=== PATIENT | male | born 1950 ===

== ENCOUNTER 2020-03-13 | Outpatient (REF) | payer MEDICARE, SELFPAY ==
--- NOTE | 2020-03-13 10:00 | CT_ITS ---
EXAMINATION: CT CHEST WITH CONTRAST CT ABDOMEN AND PELVIS WITH CONTRAST CLINICAL INFORMATION: Transverse colon cancer. COMPARISON: CT dated 12/05/2019. TECHNIQUE: Multidetector volumetric imaging was performed from the thoracic inlet through the pubic symphysis following administration of intravenous and oral contrast material. A total of 85 mL Omnipaque 300 was administered intravenously. Sagittal and coronal images were reformatted. This CT examination was performed using dose optimization techniques as appropriate, variously including the following: *Automated exposure control *Adjustment of mA and/or kV according to patient size (this includes techniques or standardized protocols for targeted exams where dose is matched to indication/reason for exam; i.e. extremities or head) *Use of iterative reconstruction technique DOSE: 590 mGy-cm. FINDINGS: -CHEST- LUNG: Multiple solid pulmonary nodules include the following (as measured on series 7, 697 images). 7 mm nodule in the superior segment of the right lower lobe (image 296) 8 mm nodule left upper lobe posteriorly, image 157 4 mm nodule in the left lung apex on image 100 13 mm nodule in the left lower lobe posteriorly on image 434. This is increased in size from 1.1 cm on the prior study by my measurement. 3 mm nodule in the left upper lobe posteriorly on image 147 Calcific granuloma is present in the left lower lobe. No pulmonary consolidation. Central airways are clear. No significant bronchiectasis. MEDIASTINUM: Heart is normal in size. Pulmonary vasculature is normal. Calcific atherosclerosis is present in the coronary arteries and thoracic aorta. No adenopathy. Thyroid gland is unremarkable. PERICARDIUM/PLEURA: No significant effusion. No pleural mass or thickening. CHEST WALL/AXILLA: Unremarkable. -ABDOMEN/PELVIS- LIVER, GALLBLADDER, BILIARY TREE: Again seen is a subcentimeter 3, unchanged from prior. A subtle 6 mm focus of hypoattenuation is also noted in the inferior margin of hepatic segment 4A on image 24 of series 3, unchanged. No new hepatic lesions are identified. Liver is normal in size and contour without biliary ductal dilatation. The gallbladder is unremarkable with no evidence of radiopaque gallstones, gallbladder wall thickening, or obvious pericholecystic inflammatory changes. PANCREAS: Normal; no mass or surrounding fluid. SPLEEN: Normal size. No focal lesion. ADRENAL GLANDS: Normal; no mass. KIDNEYS AND URETERS: The kidneys are normal in size, shape, and attenuation. No hydronephrosis, hydroureter, or calculi seen. No perinephric stranding. BLADDER: Unremarkable. GASTROINTESTINAL TRACT: There is a moderate large amount of stool in the colon, most notably in the rectum. The rectal stool ball measures up to 7 cm in diameter. There is mild colonic diverticulosis. No evidence of acute diverticulitis. Chain luis are present at the splenic flexure, consistent with partial colectomy. No findings of local recurrence are identified by CT. Specifically, no surrounding nodules or wall thickening are appreciated. No intraperitoneal free air or free fluid. Stomach, small bowel, and colon are normal in caliber. ABDOMINAL WALL: Small left inguinal hernia sac containing. VASCULATURE: Atherosclerotic calcifications are present in the abdominal aorta and iliac arteries. No aneurysmal dilatation. LYMPH NODES: No lymphadenopathy. PELVIC VISCERA: Uterus is surgically absent. No adnexal lesions. OSSEUS STRUCTURES: There is degenerative disc disease in the lower lumbar spine. Mild left convex lumbar curvature. No fracture or malalignment. [id number] osteophyte is present in the hips. IMPRESSION: 1. Multiple (5) solid pulmonary nodules which are most concerning for metastatic disease. The largest nodule measures 1.3 cm and is increased in size from 1.1 cm previously. 2. Two subcentimeter hypodensities within the liver which are too small to characterize, possibly corresponding to cysts. No new lesions are identified in the abdomen and pelvis. 3. Status post partial colectomy without evidence of local recurrence.
== END 2020-03-13 00:01 | disposition home or self-care (01) ==
LOC: HO.CT
PROVIDERS: Visit Provider Internal Medicine
DX: C18.4 Malignant neoplasm of transverse colon (principal)
CPT/HCPCS: 71260; 74177; 88341; 88342

== ENCOUNTER → 2020-03-18 09:00 | Outpatient (BNV) | payer MEDICARE, SELFPAY | PROVIDERS: PCP Internal Medicine; Visit Provider Internal Medicine | DX: C18.4 Malignant neoplasm of transverse colon (principal); C79.82 Secondary malignant neoplasm of genital organs | CPT/HCPCS: 99212; 99213; 99214; G2211 ==

== ENCOUNTER 2020-03-28 10:52 | Day surgery (SDC) | payer MEDICARE, SELFPAY ==
--- NOTE | 2020-03-28 | XR_ITS ---
EXAMINATION: XR CHEST CLINICAL INFORMATION: Status post left lung biopsy COMPARISON: March 13, 2020 TECHNIQUE: AP portable view of the chest was obtained. FINDINGS: No pneumothorax is evident. There is some left base atelectasis seen. Heart normal size. No evidence of pulmonary edema. No significant pleural effusion. XR/XR chest 1V IMPRESSION: No pneumothorax status post left lung biopsy.
[2020-03-28 11:27] VITALS: BP 148/66; PULSE 41; RESP 16; TEMP 36.8; O2SAT 99
[2020-03-28 11:31] VITALS: BMI 25.9
[2020-03-28 11:40] LABS: MANUAL DIFF FLAG NO
[2020-03-28 11:44] LABS: Basophils Percent Auto 0.8 % (0-2); Eosinophils Absolute Auto 0.3 X10*3/uL (0.0-0.4); Eosinophils Percent Auto 5.1 % (0-4); Hematocrit 38.2 % (42-52); Hemoglobin 12.3 g/dl (14.0-18.0); Imm Gran Abs Auto 0.01 X10*3/uL (0.00-0.03); Imm Gran Pct Auto 0.2 % (0.0-0.4); Lymphocytes Absolute Auto 1.7 X10*3/uL (1.2-4.9); Lymphocytes Percent Auto 33.9 % (20-40); Mean Corpuscular HGB Conc 32.2 g/dl (31.0-36.0); Mean Corpuscular Hemoglobin 28.7 pg (27.0-33.0); Mean Platelet Volume 10.3 fL (9.4-12.4); Monocytes Absolute Auto 0.5 X10*3/uL (0.1-1.2); Monocytes Percent Auto 9.6 % (2-11); Neutrophils Absolute Auto 2.6 X10*3/uL (2.0-8.3); Neutrophils Percent Auto 50.4 % (45-73); Platelet Count 185 X10*3/uL (160-400); Red Blood Count 4.29 X10*6/uL (4.60-5.80); Red Cell Distribution Width 13.2 % (11.0-16.0); White Blood Count 5.1 X10*3/uL (4.8-10.8)
[2020-03-28 11:58] LABS: Prothrombin Time 11.8 SEC (10.8-13.0)
[2020-03-28 12:01] LABS: Partial Thromboplastin Time 27.9 SEC (24.1-38.0)
[2020-03-28 12:14] LABS: Anion Gap 9 (12-20); Carbon Dioxide 28 mmol/L (22-29); Chloride 107 mmol/L (96-108); Potassium 4.8 mmol/l (3.3-5.1); Sodium 139 mmol/L (135-145)
--- NOTE | 2020-03-28 14:12 | CT_ITS ---
PROCEDURE: CT GUIDED BIOPSY, LUNG CLINICAL INFORMATION: History of colon cancer with lung nodules. COMPARISON: March 13, 2020 TECHNIQUE: CT fluoroscopic-guided left lung biopsy This CT examination was performed using dose optimization techniques as appropriate, variously including the following: *Automated exposure control *Adjustment of mA and/or kV according to patient size (this includes techniques or standardized protocols for targeted exams where dose is matched to indication/reason for exam; i.e. extremities or head) *Use of iterative reconstruction technique DLP: 216 mGy-cm 30 minutes of sedation. FINDINGS: Informed consent was obtained from the patient prior to the procedure. During this process, the procedure and potential alternatives were explained, along with the intended outcome and benefits. The risks of the procedure, as well as the risk of not doing the procedure, were discussed. The patient was given the opportunity to ask questions regarding the procedure and appeared competent to make medical decisions. A signed consent form which documents this discussion was placed in the medical record. With patient lying prone using sterile technique and CT fluoroscopic guidance a 19-gauge coaxial guiding needle was placed from a posterior approach into the 1.2 cm lesion within the left lower lobe. 2, 20-gauge core biopsy samples were obtained. Preliminary cytology result was of an adequate specimen. No immediate postprocedure pneumothorax was present. CT/CT biopsy lung LT IMPRESSION: Successful left lower lobe lung nodule core biopsy.
[2020-03-28] MEDS: Lidocaine HCl 1 % 20 ML VIAL 10 ML SUBCUT (15:09)
[2020-03-28 15:15] VITALS: BP 143/64; PULSE 42; RESP 14; TEMP 36.1; O2SAT 100
[2020-03-28 15:30] VITALS: BP 148/61; PULSE 41; RESP 16; O2SAT 99
[2020-03-28 15:49] VITALS: BP 135/63; PULSE 40; RESP 16; O2SAT 99
[2020-03-28 16:21] VITALS: BP 161/70; PULSE 50; RESP 20; O2SAT 100
[2020-03-28 16:39] VITALS: BP 140/69; PULSE 45; RESP 20; TEMP 36.2; O2SAT 100
[2020-04-12 17:07] LABS: KRAS Mutation Analysis NOT DETECTED
[2020-04-14 18:32] LABS: BRAF Mutation Analysis NOT DETECTED
[2020-04-18 19:01] LABS: NRAS Mutation NOT DETECTED
== END 2020-03-28 15:15 | disposition home or self-care (01) ==
PROVIDERS: Radiology Diagnostic Radiology; PCP Internal Medicine; Visit Provider Internal Medicine
DX: C78.02 Secondary malignant neoplasm of left lung (principal); Z85.038 Personal history of other malignant neoplasm of large intestine; Z90.49 Acquired absence of other specified parts of digestive tract; Z85.46 Personal history of malignant neoplasm of prostate; Z90.79 Acquired absence of other genital organ(s)
CPT/HCPCS: 32405; 36415; 71045; 77012; 80051; 81210; 81275; 81276; 81311; 85025; 85610; 85730; 88305; 88333; 88341; 88342; 99152; 99153; J2250; J3010

== ENCOUNTER 2020-04-15 09:01 | Outpatient (REF) | payer MEDICARE, SELFPAY ==
--- NOTE | 2020-04-15 | PE_ITS ---
EXAMINATION: Fluorine-18 FDG PET/CT Scan CLINICAL INDICATION: Initial treatment management. Malignant neoplasm of colon. PROCEDURE: 61 minutes following the intravenous administration of 16.3 mCi of fluorine 18 FDG, images from the base of the skull to the mid thighs were obtained using a combined PET/CT scanner with CT scan based attenuation correction. No oral contrast was administered. No intravenous contrast was administered. Transverse, coronal, sagittal, and volume reconstruction projections were obtained. The patient's blood glucose as determined by a finger stick, was 89 mg/dl immediately prior to injection. Total CT exam dose-length product 721.24 mGy-cm COMPARISON: No previous PET/CT scan is available for comparison. The diagnostic CT scan of the chest, abdomen, and pelvis, dated 03/13/2020, is available for comparison. FINDINGS: (Slice numbers described in this report are numbered superiorly to inferiorly with slice #1 in the head) NECK AND VISUALIZED HEAD: No foci of abnormal FDG activity are noted. The distribution of FDG activity is physiological. There is no cervical lymphadenopathy. THORAX: A left lower lobe pulmonary nodule measuring 1.2 x 1.1 cm in largest transverse dimension and shows moderately increased FDG activity, SUV Max 6.2, slice 116/311. No other foci of abnormal FDG activity are present in the chest. Several pulmonary nodules visualized on the diagnostic CT scan dated 03/13/2020 are visualized, including: A 0.7 cm nodule superior segment of the right lower lobe, slice 99/311; 0.9 cm nodule left upper lobe posteriorly, slice 79/311; 0.5 cm anterior left upper lobe nodule, slice 77/311; and seen well only in CT series #102, a 0.3 cm posterior subpleural left upper lobe nodule, slice 205/813. None of these show abnormal FDG activity, but other than a 0.9 cm nodule in the left upper lobe, all are too small to be characterized on the FDG PET images. All these nodules are unchanged from the recent diagnostic CT scan dated 03/13/2020. No definite additional nodules are visualized. There are no additional foci of abnormal FDG activity in the chest. There is no mediastinal, supraclavicular, or axillary lymphadenopathy. There is no pleural or pericardial fluid, or pneumothorax. ABDOMEN AND PELVIS: No foci of abnormal FDG activity are present in the abdomen or pelvis. A 0.6 cm hypodensity in liver Couinaud segment 4a is unchanged from the diagnostic CT scan dated 03/13/2020 and too small to be characterized on the FDG PET images. The liver is otherwise unremarkable. The gallbladder, spleen, kidneys, adrenal glands and pancreas are unremarkable. There is no retroperitoneal, mesenteric, pelvic or inguinal lymphadenopathy. There is mild FDG activity in the gastrointestinal tract without a suspicious focal component, likely physiological. There is diverticulosis without evidence of diverticulitis. There is a suture line in the splenic flexure of the large bowel with no associated abnormal FDG activity. The hollow viscera are otherwise unremarkable. A small fat-containing left inguinal hernia is present. The uterus is absent. The pelvic organs are otherwise unremarkable. MUSCULOSKELETAL: No foci of abnormal FDG activity are present in the abdomen or pelvis. There are mild degenerative changes in the spine but no suspicious sclerotic or lytic lesions are present. VASCULAR: History calcifications including coronary are noted. PET/PET CT fusion skull to thigh IMPRESSION: 1. A 1.2 x 1.1 cm left lower lobe pulmonary nodule is FDG avid, as described above and strongly suspicious for a malignant lesion. 2. Several additional subcentimeter pulmonary nodules are present, all too small to be characterized well on the FDG PET images. Continued monitoring these with diagnostic CT imaging is recommended. 3. A subcentimeter hypodensity in the liver is too small to be characterized on the FDG PET images. 4. No additional abnormalities suspicious for metastatic or other malignant lesions are noted.
== END 2020-04-15 09:02 | disposition home or self-care (01) ==
LOC: HO.PET 09:01
PROVIDERS: Visit Provider Internal Medicine
DX: Z13.89 Encounter for screening for other disorder (principal)

== ENCOUNTER 2020-05-30 13:52 | Inpatient (IN) | payer MEDICARE, SELFPAY ==
[2020-05-30 13:56] VITALS: BP 175/66; PULSE 50; RESP 18; TEMP 36.8; O2SAT 99; BMI 25.9
--- NOTE | 2020-05-30 14:15 | CT_ITS ---
EXAMINATION: CT ABDOMEN AND PELVIS WITH CONTRAST CLINICAL INFORMATION: Abdominal pain, nausea. COMPARISON: Multiple prior examinations including recent CT scan the abdomen and pelvis March 2020. CT scan of the chest performed same day. TECHNIQUE: Multidetector volumetric images were obtained from the superior aspect of the liver through the pubic symphysis following administration 85 mL of Omnipaque 350 intravenous contrast. Sagittal and coronal reformatted images were obtained on the technologist's workstation. Oral contrast: No This CT examination was performed using dose optimization techniques as appropriate, variously including the following: *Automated exposure control *Adjustment of mA and/or kV according to patient size (this includes techniques or standardized protocols for targeted exams where dose is matched to indication/reason for exam; i.e. extremities or head) *Use of iterative reconstruction technique DLP: 871 mGy-cm FINDINGS: LUNG BASES: See chest CT report. Persistent 11 mm nodule abutting the pleura in the left lower lobe, unchanged compared to March 2020. LIVER, GALLBLADDER, AND BILIARY TREE: Subtle area of ill-defined decreased attenuation in the anterior aspect of the right lobe of the liver as seen on axial images 35 through 37, series 15, unchanged. The gallbladder is unremarkable with no evidence of radiopaque gallstones, gallbladder wall thickening, or obvious pericholecystic inflammatory changes. PANCREAS: Unremarkable. SPLEEN: Unremarkable. ADRENAL GLANDS: Unremarkable. KIDNEYS AND URETERS: There is new hydronephrosis and hydroureter down to the level of the upper pelvis, where there appears to be a mass See axial images 47 through 83, series 15. Evaluation is slightly limited by the fact that oral contrast was not given for this exam. The remaining bowel loops are unremarkable, other than the postsurgical changes in the colon at the splenic flexure, as before. The ureter distal to this mass resumes a normal caliber. There are no stones. There is mild stranding in the perinephric fat on the right, likely related to the obstruction. BLADDER: Unremarkable. GASTROINTESTINAL TRACT: There is enlargement of the appendix extending into the aforementioned mass just posterior and cephalad to what appears to be enlarged appendix. There is stranding in the surrounding soft tissues adjacent to the enlarged appendix and mass. The mass is heterogeneous in density measuring approximately 4.6 cm transverse, 5.8 cm AP, and 4.5 cm craniocaudal. There is stranding in the surrounding fat. As above this is resulting in obstruction of the right collecting system. Postsurgical changes in the splenic flexure region of the large bowel unchanged. Bowel otherwise unremarkable. ABDOMINAL WALL: Small fat-containing left inguinal hernia. Intramuscular or paramuscular lipomatous tumor, likely lipoma, abutting the anterior aspect of the iliopsoas muscle at the level of the hip joint, unchanged compared to prior. This measures approximately 3.4 cm transverse. LYMPH NODES: Normal. VASCULAR: Moderate calcific atherosclerotic disease present. PELVIC VISCERA: Unremarkable. OSSEOUS STRUCTURES: Spondylosis of lumbosacral spine, unchanged. CT/CT abdomen pelvis w con IMPRESSION: Findings most compatible with appendicitis with an adjacent abscess in the right lower quadrant /right right pelvis new compared with recent CT March 2020, resulting obstruction of the right collecting system, also new compared to prior. This is unlikely to represent metastatic disease related to the patient's colon cancer Subtle low-attenuation in the anterior aspect of the right lobe of the liver unchanged compared to prior, of uncertain significance. No clearly defined mass. Left lung nodule unchanged compared to prior, consistent with metastatic disease. This has been biopsied. See CT of the chest for more complete report of the lung findings. Lipomatous mass along the iliopsoas muscle compatible with lipoma unchanged compared to prior
--- NOTE | 2020-05-30 14:17 | XR_ITS ---
EXAMINATION: XR CHEST CLINICAL INFORMATION: SOB. COMPARISON: Chest 03/27/2020 TECHNIQUE: Frontal view of the chest was obtained. FINDINGS: The lungs are well-expanded and clear of acute process. The heart size and pulmonary vascularity is normal. No gross bony abnormality seen XR/XR chest 1V IMPRESSION: Unremarkable chest exam.
--- NOTE | 2020-05-30 14:18 | ED_ITS ---
HPI - General Adult General Chief complaint: General Medical Stated complaint: covid symptoms Time Seen by Provider: 05/30/20 13:57 History of Present Illness HPI narrative: Patient is 70-year-old male presents today with having generalized malaise, nausea, diffuse abdominal plain, right flank pain, no coughing, positive malaise. Positive aches diffusely. No congestion. Feels tired. Patient has a history of prostate cancer. History of abdominal surgery in the past. No history of obstruction. No history of abscess. No history of perforation. No history of diverticulitis. Patient is currently on a chemo agent for his prostate cancer. MD complaint: Patient is a 70-year-old male Related Data Home Medications Medication Instructions Recorded Confirmed cholecalciferol (vitamin D3) 25 mcg PO DAILY 03/18/20 03/18/20 multivitamin 1 tab PO DAILY 03/18/20 03/18/20 omega-3 fatty acids [Fish Oil] 500 mg PO DAILY 03/18/20 03/18/20 saw palmetto-pumpkin seed oil cap PO 03/18/20 tadalafil [Cialis] 20 mg PO DAILY PRN 03/18/20 03/18/20 magnesium mg PO DAILY 04/18/20 Previous Rx's Medication Instructions Recorded bicalutamide [Casodex] 50 mg PO DAILY #30 tab 04/23/20 Allergies Allergy/AdvReac Type Severity Reaction Status Date / Time naproxen [From [facility]LEVE] Allergy Intermediate RASH Verified 04/18/20 11:03 Review of Systems Review of Systems: Constitutional: No Weight loss, No Fever, No Chills, No Night Sweats, No Fatigue, positive Malaise ENT/Mouth: No Hearing loss, No Ear Pain, No Nasal Congestion, No Sinus Pain, No Hoarseness, No sore throat, No Rhinorrhea, No Swallowing Difficulty Eyes: No Eye Pain, No Swelling, No Redness, No Foreign Body, No Discharge, No Vision Changes Cardiovascular: No Chest Pain, No SOB, No Dyspnea on Exertion, No Orthopnea, No Edema, No Palpitations Respiratory: No Cough, No Sputum, No Wheezing, No Smoke Exposure, No Dyspnea Gastrointestinal: Positive Nausea, No Vomiting, No Diarrhea, No Constipation, No abdominal Pain, No Hematochezia, No Melena Genitourinary: no irregular bleeding, No Dysuria, No Urinary Frequency, No Hematuria, No Urinary Incontinence, No Urgency, No Flank Pain, No Urinary Flow Changes, No Hesitancy Musculoskeletal: Positive joint pain, No Myalgias, No Joint Swelling Skin: No Skin Lesions, No rash Neuro: Positive Weakness, No Numbness, No Paresthesias, No Loss of Consciousness, No Dizziness, No Headache Psych: No Anxiety/Panic, No Depression, No SI/HI/AH/VH, No Social Issues, Heme/Lymph: No Bruising, No Bleeding,No Lymphadenopathy Endocrine: No Polyuria, No Polydipsia, No Temperature Intolerance [facility] Past Medical History Medical History Bowel cancer Colon polyps Headache Prostate CA Skin cancer of face Surgical History H/O arthroscopic knee surgery History of ankle surgery History of cataract surgery Hx of tonsillectomy Family History Family History Father Heart attack Sister Heart attack Sister Breast CA Ovarian ca Social History Social History Advance Directives: No Advance Directives Information Provided: Yes Physical Exam Vital Signs: Vital Signs: Last Vital Signs Temp 98.2 F 05/30/20 13:56 Pulse 50 05/30/20 13:56 Resp 18 05/30/20 13:56 BP 175/66 H 05/30/20 13:56 Pulse Ox 99 05/30/20 13:56 Body Mass Index 25.9 Appearance: Alert. Oriented X3. No acute distress. Eyes: Pupils equal, round and reactive to light. ENT: Pharynx normal. Neck: Normal inspection. Neck supple. No lymph nodes noted. No crepitus CVS: Normal heart rate and rhythm. Pulses normal. Normal S1 and S2 Respiratory: No respiratory distress. Breath sounds normal. No Wheezing. No rales Abdomen: Soft and nontender. No rigidity. No distention. good BS x4 Skin: Skin warm and dry. Normal skin color. Normal skin turgor. Extremities: No lower extremity edema. Neurovascular intact to all extremities. No Lacerations. No Rash Neuro: Oriented X 3. No motor deficit. No sensory deficit. Moving all extermities. No slurred speech Medical Decision Making MDM Narrative Medical decision making narrative: Question etiology as to patient's weakness generalized malaise. We will go ahead and get labs. CT scan of the chest to make sure patient does not have a pulmonary emboli as patient has a history of metastatic prostate cancer. CT scan of the abdomen for his abdominal pain. IV fluid hydration. Pain medication labs coronavirus test sent. Lab Data Result diagrams: 05/30/20 14:55 05/30/20 14:55 Labs: Lab Results 05/30/20 05/30/20 05/30/20 Range/Units 14:55 14:55 14:55 WBC 13.9 H (4.8-10.8) X10*3/uL RBC 4.04 L (4.60-5.80) X10*6/uL Hgb 11.7 L (14.0-18.0) g/dl Hct 34.7 L (42-52) % MCV 85.9 (80-98) fL MCH 29.0 (27.0-33.0) pg MCHC 33.7 (31.0-36.0) g/dl RDW 12.2 (11.0-16.0) % Plt Count 288 D (160-400) X10*3/uL MPV 9.8 (9.4-12.4) fL Immature Gran % (Auto) 0.5 H (0.0-0.4) % Neut % (Auto) 77.7 H (45-73) % Lymph % (Auto) 11.6 L (20-40) % [place] % (Auto) 9.3 (2-11) % Eos % (Auto) 0.7 (0-4) % Baso % (Auto) 0.2 (0-2) % Lymph # (Auto) 1.6 (1.2-4.9) X10*3/uL [place] # (Auto) 1.3 H (0.1-1.2) X10*3/uL Eos # (Auto) 0.1 (0.0-0.4) X10*3/uL Baso # (Auto) 0.0 (0.0-0.2) X10*3/uL Abs Immat Gran (auto) 0.07 H (0.00-0.03) X10*3/uL Absolute Neuts (auto) 10.8 H (2.0-8.3) X10*3/uL Absolute Nucleated RBC 0.000 (0.0-0.012) X10*3/uL Nucleated RBC % (auto) 0.0 (0.0-0.2) /100WBC Sodium 135 (135-145) mmol/L Potassium 4.1 (3.3-5.1) mmol/l Chloride 103 (96-108) mmol/L Carbon Dioxide 20 L (22-29) mmol/L Anion Gap 16 (12-20) BUN 21 H (9-16) mg/dL Creatinine 1.54 H (0.5-1.4) mg/dL Estim Creat Clear Calc 52.5 Estimated GFR 45 Random Glucose 97 (60-115) mg/dL Calcium 8.4 8.4 (8.4-10.2) mg/dL Phosphorus 3.3 (2.7-4.5) mg/dL Magnesium 2.0 (1.6-2.6) mg/dL Total Bilirubin 1.2 H (0.0-1.0) mg/dL Direct Bilirubin 0.7 H (0.0-0.5) mg/dL AST 22 (5-37) U/L ALT 35 (0-40) U/L Alkaline Phosphatase 151 H (39-117) U/L Total Protein 6.6 (6.5-8.0) g/dL Albumin 3.5 (3.5-5.0) g/dL Lipase 7 L (8-78) U/L Discharge Plan Discharge Prescriptions: No Action multivitamin Tablet 1 tab PO DAILY RF: 0 cholecalciferol (vitamin D3) 25 mcg (1,000 unit) Capsule 25 mcg PO DAILY RF: 0 tadalafil [Cialis] 20 mg Tablet 20 mg PO DAILY PRN (Reason: Headache) RF: 0 saw palmetto-pumpkin seed oil 160 mg Capsule PO RF: 0 Fish Oil 500 mg Capsule 500 mg PO DAILY RF: 0 magnesium 250 mg Tablet PO DAILY RF: 0 bicalutamide [Casodex] 50 mg Tablet 50 mg PO DAILY Qty: 30 RF: 1
[2020-05-30] MEDS: 0.9 % Sodium Chloride 1,000 ML 999 ML IV (15:11)
[2020-05-30] MEDS: ondansetron HCL 4 MG/2 ML VIAL IVPUSH (15:12)
[2020-05-30 15:14] LABS: Basophils Percent Auto 0.2 % (0-2); Eosinophils Absolute Auto 0.1 X10*3/uL (0.0-0.4); Eosinophils Percent Auto 0.7 % (0-4); Hematocrit 34.7 % (42-52); Hemoglobin 11.7 g/dl (14.0-18.0); Imm Gran Abs Auto 0.07 X10*3/uL (0.00-0.03); Imm Gran Pct Auto 0.5 % (0.0-0.4); Lymphocytes Absolute Auto 1.6 X10*3/uL (1.2-4.9); Lymphocytes Percent Auto 11.6 % (20-40); MANUAL DIFF FLAG NO; Mean Corpuscular HGB Conc 33.7 g/dl (31.0-36.0); Mean Corpuscular Volume 85.9 fL (80-98); Mean Platelet Volume 9.8 fL (9.4-12.4); Monocytes Absolute Auto 1.3 X10*3/uL (0.1-1.2); Monocytes Percent Auto 9.3 % (2-11); Neutrophils Absolute Auto 10.8 X10*3/uL (2.0-8.3); Neutrophils Percent Auto 77.7 % (45-73); Platelet Count 288 X10*3/uL (160-400); Red Blood Count 4.04 X10*6/uL (4.60-5.80); Red Cell Distribution Width 12.2 % (11.0-16.0); White Blood Count 13.9 X10*3/uL (4.8-10.8)
[2020-05-30] MEDS: HYDROmorphone HCl 0.5 MG/0.5 ML SYRINGE IVPUSH (15:19)
--- NOTE | 2020-05-30 15:39 | ECG_ITS ---
Test Reason : WEAKNESS Blood Pressure : / mmHG Vent. Rate : 064 BPM Atrial Rate : 064 BPM P-R Int : 160 ms QRS Dur : 084 ms QT Int : 422 ms P-R-T Axes : 052 027 028 degrees QTc Int : 435 ms Normal sinus rhythm Normal ECG When compared with ECG of 20-DEC-2019 15:16, No significant change was found Referred By: Areli Griffin Electronically Signed By:ORLY ASHFORD MD
[2020-05-30 15:46] LABS: Calcium 8.4 mg/dL (8.4-10.2); Phosphorus 3.3 mg/dL (2.7-4.5)
[2020-05-30 15:48] LABS: Alanine Aminotransferase 35 U/L (0-40); Albumin Level 3.5 g/dL (3.5-5.0); Alkaline Phosphatase 151 U/L (39-117); Anion Gap 16 (12-20); Aspartate Amino Transferase 22 U/L (5-37); Bilirubin Direct 0.7 mg/dL (0.0-0.5); Bilirubin Total 1.2 mg/dL (0.0-1.0); Blood Urea Nitrogen 21 mg/dL (9-16); Calcium 8.4 mg/dL (8.4-10.2); Carbon Dioxide 20 mmol/L (22-29); Chloride 103 mmol/L (96-108); Creatinine Clr Calc Pharmacy 52.5; Estimated Glomerular Filt Rate 45; Glucose Random 97 mg/dL (60-115); Lipase 7 U/L (8-78); Potassium 4.1 mmol/l (3.3-5.1); Sodium 135 mmol/L (135-145); Total Protein 6.6 g/dL (6.5-8.0)
--- NOTE | 2020-05-30 15:48 | CT_ITS ---
EXAMINATION: CT ANGIOGRAM OF THE CHEST WITH AND WITHOUT CONTRAST (CT PULMONARY ANGIOGRAM FOR PE) CLINICAL INFORMATION: Reason for Exam sob COMPARISON: CT chest dated 03/13/2020 TECHNIQUE: Prior to contrast administration, noncontrast localization images were obtained. Subsequently, multidetector volumetric imaging was performed from the thoracic inlet to below the diaphragms following the administration of 80 mL Omnipaque 350 intravenous contrast. No contrast reaction reported Sagittal, coronal, and MIP oblique sagittal reformatted images were obtained on the CT workstation, uploaded to PACS, and reviewed. This CT examination was performed using dose optimization techniques as appropriate, variously including the following: *Automated exposure control *Adjustment of mA and/or kV according to patient size (this includes techniques or standardized protocols for targeted exams where dose is matched to indication/reason for exam; i.e. extremities or head) *Use of iterative reconstruction technique Total exam dose-length product 1265 mGy-cm FINDINGS: QUALITY OF STUDY/CONTRAST BOLUS: Satisfactory. PULMONARY ARTERIES: No central or segmental pulmonary emboli. THORACIC AORTA: No aneurysm or dissection. LUNG: No evidence of acute pneumonitis or parenchymal consolidation. Again seen is a 1.1 cm nodule within left lower lobe, possibly slightly decreased from the prior CT chest from the measured 1.3 cm. Also slightly decreased is a nodule in the superior segment of the right lower lobe which now measures 5 mm, previously 6 mm. There are a few additional pulmonary nodules which appear stable (see solares images). PLEURA: No pleural effusion or pneumothorax. MEDIASTINUM: Normal heart size. Coronary calcifications. No pericardial effusion. No hilar or mediastinal lymphadenopathy. No evidence of septal bowing or right heart strain. No reflux of contrast into the hepatic veins to suggest elevated right heart pressures. CHEST WALL/AXILLA: No axillary or internal mammary lymphadenopathy. OSSEOUS STRUCTURES: No acute or suspicious osseous abnormality. UPPER ABDOMEN: Unremarkable. CT/CT angio chest PE protocol IMPRESSION: * No evidence of pulmonary embolism. * No aortic dissection or aneurysm. * Coronary calcifications. * There are a few pulmonary nodules as seen previously, the dominant nodule within left lower lobe biopsy proven represent metastatic prostate cancer. This nodule has decreased in size slightly from the prior examination now measuring 1.1 cm, previously 1.3 cm. Equivocal decrease in size of a nodule at the superior segment of the right lower lobe as well. Remaining pulmonary nodules are stable. VTE: negative
[2020-05-30 15:49] LABS: Influenza A PCR NEGATIVE (Negative); Influenza B PCR NEGATIVE (Negative); Resp Syncy Virus RNA Qual PCR NEGATIVE (Negative); SARS COV2 PCR INHOUSE NEGATIVE (Negative)
[2020-05-30] MEDS: iohexoL 350 MG/ML 100 ML INFUS..BTL IV (16:26)
[2020-05-30] MEDS: 0.9 % Sodium Chloride 500 ML IV (16:44)
[2020-05-30 16:57] LABS: Glucose Urine UA NEG (NEG); Leukocyte Esterase Urine NEG (NEG); Nitrite Urine NEG (NEG); PH 5.5 (5.0-8.0); Specific Gravity - Urine 1.025 (1.005-1.025); Urine Blood NEG (NEG); Urine Ketones 40 MG/DL (NEG); Urine Protein TRACE MG/DL (NEG-TRACE)
[2020-05-30 17:00] LABS: Color Urine YELLOW
[2020-05-30 17:01] LABS: Appearance Urine CLEAR
[2020-05-30 17:46] VITALS: BP 174/68; PULSE 64; RESP 15; O2SAT 98
[2020-05-30 18:14] VITALS: BP 161/65; PULSE 67; RESP 15; O2SAT 98
--- NOTE | 2020-05-30 18:19 | PC.NURSE ---
pt came in via private car from home for several days of abdominal pain and feeling generally unwell. He has been seen by MD and told he is admitted, pt states understanding and awaits bed assignment. He is alert, oriented, calm and cooperative. will continue to observe
--- NOTE | 2020-05-30 19:17 | PM.HPGS ---
History of Present Illness History of Present Illness Date of Service: 05/30/20 Chief complaint: covid symptoms Narrative: Jonas Tony is a 70 year old male with a history of a distal transverse colon cancer as well as metastatic prostate cancer with Mets to the lung, currently undergoing chemotherapy, now presenting with complaints of generalized malaise and lower abdominal pain. The symptoms began approximately 1 week ago and progressed throughout the week. He reports fever and chills, decreased appetite, and constipation. He subsequently presented to the emergency department and was noted to be tender in the lower abdomen on the right side. Laboratories revealed an elevated WBC. A CT of the abdomen and pelvis revealed an abscess collection in the right lower quadrant with adjacent appendix which was enlarged suggestive of a perforated appendicitis with an abscess. Patient is admitted for management of this perforated appendicitis/abscess. Review of Systems Constitutional: Constitutional: Reports chills, Reports fever(s), Denies headache(s) and Reports poor appetite ENT: Denies dizziness and Denies headache(s) Cardiovascular: Cardiovascular: Denies chest pain, Denies rapid heart rate, Denies palpitations and Denies slow heart rate Respiratory: Respiratory: Denies chest congestion, Denies cough, Denies pain on inspiration and Denies wheezing Gastrointestinal: Gastrointestinal: Reports abdominal pain, Reports bloating, Denies change in stool character, Reports constipation, Denies diarrhea, Denies nausea, Denies vomiting and Denies hematemesis Musculoskeletal: Musculoskeletal: Denies back pain, Reports arthralgias, Denies joint swelling and Denies numbness Integumentary/Breasts: Skin/Breast: Denies change in pigmentation, Denies erythema and Denies rash Neurologic: Denies confusion, Denies dizziness, Denies headache(s) and Denies numbness Psychiatric: Psychiatric: Denies anxiety, Denies confusion and Denies depression Endocrine: Endocrine: Denies palpitations Hematologic/Lymphatic: Hematologic/Lymphatic: Denies easy bleeding, Denies easy bruising and Denies lymphadenopathy Allergic/Immunologic: Allergic/Immunologic: Denies wheezing PMFSH Past Medical History Medical History Bowel cancer Colon polyps Headache Prostate CA Skin cancer of face Family History Family History Father Heart attack Sister Heart attack Sister Breast CA Ovarian ca Surgical History Surgical History H/O arthroscopic knee surgery History of ankle surgery History of cataract surgery Hx of tonsillectomy Social History Social History Alcohol intake: never Smoking Status: Former smoker Smoked in Last 30 Days: No Use of substances other than those prescribed or required for medical reasons: No Advance Directives: No Advance Directives Information Provided: Yes Meds Allergies Allergy/AdvReac Type Severity Reaction Status Date / Time naproxen [From ALEVE] Allergy Intermediate RASH Verified 04/18/20 11:03 Home Medications Medication Instructions Recorded Confirmed Type cholecalciferol (vitamin D3) 25 mcg PO DAILY 03/18/20 03/18/20 History multivitamin 1 tab PO DAILY 03/18/20 03/18/20 History omega-3 fatty acids [Fish Oil] 500 mg PO DAILY 03/18/20 03/18/20 History saw palmetto-pumpkin seed oil cap PO 03/18/20 History tadalafil [Cialis] 20 mg PO DAILY PRN 03/18/20 03/18/20 History magnesium mg PO DAILY 04/18/20 History Physical Exam Vital Signs: Vital Signs: Last Vital Signs Temp 98.2 F 05/30/20 13:56 Pulse 67 05/30/20 18:14 Resp 15 05/30/20 18:14 BP 161/65 H 05/30/20 18:14 Pulse Ox 98 05/30/20 18:14 Body Mass Index 25.9 Const: General: cooperative, comfortable and well developed; No confusion Nutritional Appearance: well nourished Orientation/consciousness: patient oriented x3 and No confusion Eyes: Sclerae: sclerae normal EOM: EOMs intact bilaterally Neck: Neck: Yes normal visual inspection Resp: Effort & Inspection: normal respiratory effort, no cough and no respiratory distress Cardio: Jugular venous distension: no JVD Rate: regular rate Rhythm: regular rhythm GI: Inspection: Yes normal to inspection Palpation (GI): Soft to palpation, Tenderness to palpation present (GI), no guarding and not rigid Percussion: Yes normal to percussion Auscultation: normal bowel sounds Skin: General skin exam: dry skin Rashes: no rashes Neuro: General: patient oriented x3, no focal motor deficits and No confusion Extrem: General: Yes full ROM and Yes no clubbing, cyanosis or edema Results Results Labs: Short CBC 05/30/20 Range/Units 14:55 WBC 13.9 H (4.8-10.8) X10*3/uL Hgb 11.7 L (14.0-18.0) g/dl Hct 34.7 L (42-52) % Plt Count 288 D (160-400) X10*3/uL BMP 05/30/20 05/30/20 14:55 14:55 Sodium 135 Potassium 4.1 Chloride 103 Carbon Dioxide 20 L BUN 21 H Creatinine 1.54 H Calcium 8.4 8.4 Liver Function 05/30/20 Range/Units 14:55 Total Bilirubin 1.2 H (0.0-1.0) mg/dL Direct Bilirubin 0.7 H (0.0-0.5) mg/dL AST 22 (5-37) U/L ALT 35 (0-40) U/L Alkaline Phosphatase 151 H (39-117) U/L Albumin 3.5 (3.5-5.0) g/dL Urine 05/30/20 Range/Units 16:46 Urine Color YELLOW Urine Appearance CLEAR Urine pH 5.5 (5.0-8.0) Ur Specific [place] 1.025 (1.005-1.025) Urine Protein TRACE (NEG-TRACE) MG/DL Urine Glucose (UA) NEG (NEG) MG/DL EXAMINATION: CT ABDOMEN AND PELVIS WITH CONTRAST CLINICAL INFORMATION: Abdominal pain, nausea. COMPARISON: Multiple prior examinations including recent CT scan the abdomen and pelvis March 2020. CT scan of the chest performed same day. TECHNIQUE: Multidetector volumetric images were obtained from the superior aspect of the liver through the pubic symphysis following administration 85 mL of Omnipaque 350 intravenous contrast. Sagittal and coronal reformatted images were obtained on the technologist's workstation. Oral contrast: No This CT examination was performed using dose optimization techniques as appropriate, variously including the following: *Automated exposure control *Adjustment of mA and/or kV according to patient size (this includes techniques or standardized protocols for targeted exams where dose is matched to indication/reason for exam; i.e. extremities or head) *Use of iterative reconstruction technique DLP: 871 mGy-cm FINDINGS: LUNG BASES: See chest CT report. Persistent 11 mm nodule abutting the pleura in the left lower lobe, unchanged compared to March 2020. LIVER, GALLBLADDER, AND BILIARY TREE: Subtle area of ill-defined decreased attenuation in the anterior aspect of the right lobe of the liver as seen on axial images 35 through 37, series 15, unchanged. The gallbladder is unremarkable with no evidence of radiopaque gallstones, gallbladder wall thickening, or obvious pericholecystic inflammatory changes. PANCREAS: Unremarkable. SPLEEN: Unremarkable. ADRENAL GLANDS: Unremarkable. KIDNEYS AND URETERS: There is new hydronephrosis and hydroureter down to the level of the upper pelvis, where there appears to be a mass See axial images 47 through 83, series 15. Evaluation is slightly limited by the fact that oral contrast was not given for this exam. The remaining bowel loops are unremarkable, other than the postsurgical changes in the colon at the splenic flexure, as before. The ureter distal to this mass resumes a normal caliber. There are no stones. There is mild stranding in the perinephric fat on the right, likely related to the obstruction. BLADDER: Unremarkable. GASTROINTESTINAL TRACT: There is enlargement of the appendix extending into the aforementioned mass just posterior and cephalad to what appears to be enlarged appendix. There is stranding in the surrounding soft tissues adjacent to the enlarged appendix and mass. The mass is heterogeneous in density measuring approximately 4.6 cm transverse, 5.8 cm AP, and 4.5 cm craniocaudal. There is stranding in the surrounding fat. As above this is resulting in obstruction of the right collecting system. Postsurgical changes in the splenic flexure region of the large bowel unchanged. Bowel otherwise unremarkable. ABDOMINAL WALL: Small fat-containing left inguinal hernia. Intramuscular or paramuscular lipomatous tumor, likely lipoma, abutting the anterior aspect of the iliopsoas muscle at the level of the hip joint, unchanged compared to prior. This measures approximately 3.4 cm transverse. LYMPH NODES: Normal. VASCULAR: Moderate calcific atherosclerotic disease present. PELVIC VISCERA: Unremarkable. OSSEOUS STRUCTURES: Spondylosis of lumbosacral spine, unchanged. CT/CT abdomen pelvis w con IMPRESSION: Findings most compatible with appendicitis with an adjacent abscess in the right lower quadrant /right right pelvis new compared with recent CT March 2020, resulting obstruction of the right collecting system, also new compared to prior. This is unlikely to represent metastatic disease related to the patient's colon cancer Subtle low-attenuation in the anterior aspect of the right lobe of the liver unchanged compared to prior, of uncertain significance. No clearly defined mass. Left lung nodule unchanged compared to prior, consistent with metastatic disease. This has been biopsied. See CT of the chest for more complete report of the lung findings. Lipomatous mass along the iliopsoas muscle compatible with lipoma unchanged compared to prior Dictated By:JEANIE MARIE MD Signed By:<Electronically signed by JEANIE MARIE MD in OV>05/30/20 1186 Assessment and Plan (1) Acute appendicitis with appendiceal abscess: Status: Acute 70-year-old male presenting with a 1 week history of abdominal pain, malaise, weakness, fever, chills presented to the emergency department this evening due to the abdominal pain. On examination the patient is tender in the right lower quadrant over McBurney's point. Laboratories revealed an elevated WBC and CT of the abdomen indicates a right lower quadrant appendiceal abscess. Ideally the abscess should be drained with Interventional Radiology. If this is not possible abscess drainage/appendectomy will be required although this would be difficult due to the prolonged nature of the appendicitis. I reviewed the CT images with the patient and discuss the treatment plan. He will be placed on IV antibiotics and IV fluids and kept NPO. Patient understands and agrees with the plan. (2) Metastatic malignant neoplasm to prostate: Status: Acute Will hold the Casodex for now pending management of appendiceal abscess.
[2020-05-30 19:58] VITALS: RESP 18
[2020-05-30] MEDS: Acetaminophen 325 MG TABLET 650 MG PO (19:58)
[2020-05-30] MEDS: Morphine Sulfate 4 MG/ML CARTRIDGE IVPUSH (19:58)
[2020-05-30] MEDS: Piperacillin Sodium/Tazobactam 3.375 GM in 0.9 % Sodium Chloride 50 ML IV (19:58)
[2020-05-30] MEDS: Dextrose 5 % and Lactated Ring 1,000 ML 125 ML IVCONT (20:00)
[2020-05-30 20:02] VITALS: BP 163/68; PULSE 67; RESP 16; TEMP 37.7; O2SAT 99
--- NOTE | 2020-05-30 20:02 | PC.NURSE ---
pt c/o ongoing pain. medicated with prns available awaiting room assignment
[2020-05-30 21:20] VITALS: BP 154/66; PULSE 67; RESP 18; TEMP 37.1; O2SAT 94
[2020-05-31] VITALS (13 sets, daily range): BP systolic 143–173; BP diastolic 65–76; PULSE 55–71; RESP 16–20; TEMP 36.6–37.8; O2SAT 93–98
[2020-05-31] MEDS: Morphine Sulfate 4 MG/ML CARTRIDGE IVPUSH ×2 (00:50→04:41)
[2020-05-31] MEDS: Piperacillin Sodium/Tazobactam 3.375 GM in 0.9 % Sodium Chloride 50 ML IV ×4 (01:50→19:22)
[2020-05-31] MEDS: Acetaminophen 325 MG TABLET 650 MG PO (03:30)
--- NOTE | 2020-05-31 03:46 | PC.NURSE ---
P-TEMP-100.1 I-MEDICATED WITH 2 TYLENOL PO E-WILL CONTINUE TO MONITOR
[2020-05-31] MEDS: Dextrose 5 % and Lactated Ring 1,000 ML 125 ML IVCONT ×2 (04:46→19:09)
[2020-05-31 07:32] LABS: MANUAL DIFF FLAG NO
[2020-05-31 07:35] LABS: Basophils Percent Auto 0.2 % (0-2); Eosinophils Absolute Auto 0.1 X10*3/uL (0.0-0.4); Eosinophils Percent Auto 0.6 % (0-4); Hematocrit 31.2 % (42-52); Hemoglobin 10.2 g/dl (14.0-18.0); Imm Gran Abs Auto 0.11 X10*3/uL (0.00-0.03); Imm Gran Pct Auto 0.8 % (0.0-0.4); Lymphocytes Absolute Auto 1.2 X10*3/uL (1.2-4.9); Lymphocytes Percent Auto 8.2 % (20-40); Mean Corpuscular HGB Conc 32.7 g/dl (31.0-36.0); Mean Corpuscular Hemoglobin 28.6 pg (27.0-33.0); Mean Corpuscular Volume 87.4 fL (80-98); Monocytes Absolute Auto 1.4 X10*3/uL (0.1-1.2); Monocytes Percent Auto 9.6 % (2-11); Neutrophils Absolute Auto 11.4 X10*3/uL (2.0-8.3); Neutrophils Percent Auto 80.6 % (45-73); Platelet Count 261 X10*3/uL (160-400); Red Blood Count 3.57 X10*6/uL (4.60-5.80); Red Cell Distribution Width 12.4 % (11.0-16.0); White Blood Count 14.1 X10*3/uL (4.8-10.8)
[2020-05-31 07:58] LABS: Anion Gap 12 (12-20); Blood Urea Nitrogen 19 mg/dL (9-16); Calcium 7.8 mg/dL (8.4-10.2); Carbon Dioxide 22 mmol/L (22-29); Chloride 107 mmol/L (96-108); Estimated Glomerular Filt Rate 36; Glucose Random 132 mg/dL (60-115); Potassium 4.2 mmol/l (3.3-5.1); Sodium 137 mmol/L (135-145)
[2020-05-31] MEDS: 0.9 % Sodium Chloride Flush 3 ML SYRINGE IVFLUSH ×2 (08:05→14:58)
--- NOTE | 2020-05-31 08:09 | PM.PNGS ---
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 Physical Exam Vital Signs: Vital Signs: Last Vital Signs Temp 97.9 F 05/31/20 07:06 Pulse 55 05/31/20 07:06 Resp 20 05/31/20 07:06 BP 150/65 H 05/31/20 07:06 Pulse Ox 96 05/31/20 07:06 Body Mass Index 25.9 Const: General: cooperative, no acute distress and tired appearing Nutritional Appearance: average body habitus Orientation/consciousness: patient oriented x3 Resp: Effort & Inspection: normal respiratory effort, no audible wheezes and not tachypneic GI: Other: Soft, tender in the right lower quadrant, no rebound or guarding Skin: Other: Warm and dry, no rash Neuro: General: patient oriented x3 Extrem: General: Yes full ROM and No edema Progress Note: A&P Assessment and plan (1) Acute appendicitis with appendiceal abscess: Status: Acute Assessment and Plan: Discussed the CT findings with Dr. Gamboa from Radiology. He does not feel he can safely drain the abscess percutaneously. I discussed this with the patient and recommended a laparoscopic or possible open appendectomy with drainage of the intra-abdominal abscess. After discussion of the procedure, risks, and alternatives, he gives his consent for the surgery. He will be added onto the OR schedule for today. Will continue the IV antibiotics. Fall Risk Details Current Medications: Current Medications Generic Name Dose Route Start Last Admin Trade Name Freq PRN Reason Stop Dose Admin Acetaminophen 650 mg 05/30/20 19:43 05/31/20 03:30 Acetaminophen 325 Mg Tablet PO 650 mg Q6H PRN Administration Pain, Mild (Pain Scale 1-3) Dextrose/Lactated Ringer's 1,000 mls @ 125 mls/hr 05/30/20 19:43 05/31/20 08:07 D5lr IVCONT 0 mls/hr .Q8H SAUNDRA Infusion Piperacillin Sod/Tazobactam 50 mls @ 100 mls/hr 05/30/20 19:43 05/31/20 08:02 Sod 3.375 gm/ Sodium Chloride IV 100 mls/hr Q6H SAUNDRA Administration Morphine Sulfate 4 mg 05/30/20 19:42 05/31/20 04:41 Morphine Sulfate 4 Mg/Ml Cartridge IVPUSH 4 mg Q4H PRN Administration Pain, Severe (Pain Scale 7-10) Ondansetron HCl 4 mg 05/31/20 05:58 Ondansetron Hcl 4 Mg/2 Ml Vial IVPUSH Q8H PRN Nausea Pharmacy Consult 1 each 05/30/20 18:03 Consult Rx Perform Med Rec MISCELLANE ONCE PRN Consult order Sodium Chloride 3 ml 05/31/20 00:00 05/31/20 08:05 0.9 % Sodium Chloride Flush 3 Ml Syringe IVFLUSH 3 ml QSHIFT SAUNDRA Administration Zolpidem Tartrate 5 mg 05/30/20 19:43 Zolpidem Tartrate 5 Mg Tablet PO BEDTIME PRN Insomnia Time Spent With Patient Time: Total time spent is greater than 50% in coordination of care (as documented) at patient's floor/unit and/or counseling patient: Time with patient: 15 - 24 minutes
--- NOTE | 2020-05-31 09:10 | P.CONAN_ITS ---
HPI - Anesthesia Eval Consult details Narrative: Prostate cancer - mets to lungs (asymptomatic) [facility] Past Medical History Medical History Bowel cancer Colon polyps Headache Prostate CA Skin cancer of face Family History Family History Father Heart attack Sister Heart attack Sister Breast CA Ovarian ca Surgical History Surgical History H/O arthroscopic knee surgery History of ankle surgery History of cataract surgery Hx of tonsillectomy Social History Social History Household Members: Spouse Housing: House Alcohol intake: never Smoking Status: Former smoker Smoked in Last 30 Days: No Use of substances other than those prescribed or required for medical reasons: No Have you been hit, kicked, punched, or otherwise hurt by someone within the past year? If so, by whom?: No Do you feel safe in your current relationship?: Yes Is there a partner from a previous relationship who is making you feel unsafe now?: No Are you made to feel afraid or neglected: No Advance Directives: No Advance Directives Information Provided: Yes Do you have thoughts of harming others: None Do you have a plan to hurt others: No Plan Recently lost weight without trying: No service: No Current occupational status: retired Meds Allergies Allergy/AdvReac Type Severity Reaction Status Date / Time naproxen [From ALEVE] Allergy Intermediate RASH Verified 04/18/20 11:03 Home Medications Medication Instructions Recorded Confirmed Type cholecalciferol (vitamin D3) 25 mcg PO DAILY 03/18/20 03/18/20 History multivitamin 1 tab PO DAILY 03/18/20 03/18/20 History omega-3 fatty acids [Fish Oil] 500 mg PO DAILY 03/18/20 03/18/20 History saw palmetto-pumpkin seed oil cap PO 03/18/20 History tadalafil [Cialis] 20 mg PO DAILY PRN 03/18/20 03/18/20 History magnesium mg PO DAILY 04/18/20 History Exam Exam Date and Time: May 31, 2020 0910 Height,Weight and Vital Signs: Height 6 ft 3 in Weight 93.894 kg Last Vital Signs Temp 97.9 F 05/31/20 07:06 Pulse 55 05/31/20 07:06 Resp 20 05/31/20 07:06 BP 150/65 H 05/31/20 07:06 Pulse Ox 96 05/31/20 07:06 Pertinent Lab Results Pertinent Lab Results: Laboratory Tests 05/30/20 05/30/20 05/30/20 14:55 14:55 14:55 WBC 13.9 H RBC 4.04 L Hgb 11.7 L Hct 34.7 L MCV 85.9 MCH 29.0 MCHC 33.7 RDW 12.2 Plt Count 288 D MPV 9.8 Immature Gran % (Auto) 0.5 H Neut % (Auto) 77.7 H Lymph % (Auto) 11.6 L [place] % (Auto) 9.3 Eos % (Auto) 0.7 Baso % (Auto) 0.2 Lymph # (Auto) 1.6 [place] # (Auto) 1.3 H Eos # (Auto) 0.1 Baso # (Auto) 0.0 Abs Immat Gran (auto) 0.07 H Absolute Neuts (auto) 10.8 H Absolute Nucleated RBC 0.000 Nucleated RBC % (auto) 0.0 Sodium 135 Potassium 4.1 Chloride 103 Carbon Dioxide 20 L Anion Gap 16 BUN 21 H Creatinine 1.54 H Estim Creat Clear Calc 52.5 Estimated GFR 45 Random Glucose 97 Calcium 8.4 8.4 Phosphorus 3.3 Magnesium 2.0 Total Bilirubin 1.2 H Direct Bilirubin 0.7 H AST 22 ALT 35 Alkaline Phosphatase 151 H Total Protein 6.6 Albumin 3.5 Lipase 7 L Urine Color Urine Appearance Urine pH Ur Specific [place] Urine Protein Urine Glucose (UA) Urine Ketones Urine Blood Urine Nitrite Ur Leukocyte Esterase Coronavirus (PCR) Influenza Type A (PCR) Influenza Type B (PCR) RSV RNA Qual (PCR) 05/30/20 05/30/20 05/31/20 14:55 16:46 06:54 WBC 14.1 H RBC 3.57 L Hgb 10.2 L Hct 31.2 L MCV 87.4 MCH 28.6 MCHC 32.7 RDW 12.4 Plt Count 261 MPV 10.0 Immature Gran % (Auto) 0.8 H Neut % (Auto) 80.6 H Lymph % (Auto) 8.2 L [place] % (Auto) 9.6 Eos % (Auto) 0.6 Baso % (Auto) 0.2 Lymph # (Auto) 1.2 [place] # (Auto) 1.4 H Eos # (Auto) 0.1 Baso # (Auto) 0.0 Abs Immat Gran (auto) 0.11 H Absolute Neuts (auto) 11.4 H Absolute Nucleated RBC 0.000 Nucleated RBC % (auto) 0.0 Sodium Potassium Chloride Carbon Dioxide Anion Gap BUN Creatinine Estim Creat Clear Calc Estimated GFR Random Glucose Calcium Phosphorus Magnesium Total Bilirubin Direct Bilirubin AST ALT Alkaline Phosphatase Total Protein Albumin Lipase Urine Color YELLOW Urine Appearance CLEAR Urine pH 5.5 Ur Specific [place] 1.025 Urine Protein TRACE Urine Glucose (UA) NEG Urine Ketones 40 Urine Blood NEG Urine Nitrite NEG Ur Leukocyte Esterase NEG Coronavirus (PCR) NEGATIVE Influenza Type A (PCR) NEGATIVE Influenza Type B (PCR) NEGATIVE RSV RNA Qual (PCR) NEGATIVE 05/31/20 06:54 WBC RBC Hgb Hct MCV MCH MCHC RDW Plt Count MPV Immature Gran % (Auto) Neut % (Auto) Lymph % (Auto) [place] % (Auto) Eos % (Auto) Baso % (Auto) Lymph # (Auto) [place] # (Auto) Eos # (Auto) Baso # (Auto) Abs Immat Gran (auto) Absolute Neuts (auto) Absolute Nucleated RBC Nucleated RBC % (auto) Sodium 137 Potassium 4.2 Chloride 107 Carbon Dioxide 22 Anion Gap 12 BUN 19 H Creatinine 1.84 H Estim Creat Clear Calc 44.0 Estimated GFR 36 Random Glucose 132 H D Calcium 7.8 L D Phosphorus Magnesium Total Bilirubin Direct Bilirubin AST ALT Alkaline Phosphatase Total Protein Albumin Lipase Urine Color Urine Appearance Urine pH Ur Specific [place] Urine Protein Urine Glucose (UA) Urine Ketones Urine Blood Urine Nitrite Ur Leukocyte Esterase Coronavirus (PCR) Influenza Type A (PCR) Influenza Type B (PCR) RSV RNA Qual (PCR) Airway Mallampati Class: II TM Dist: >3cm Neck ROM: Full Loose/Missing/Broken Teeth: No Heart: RRR Lungs: CTA Assessment and Plan Assessment Anesthesia Assessment: Anesthesia Plan Discussed and Chart Reviewed Final Anesthetic Review NPO: Yes ASA Class: II and Emergency Final Preanesthetic Review: No Changes in Pt Med Stat, Meds/Allgs Chart Reviewed, Consent Obtained/Reviewed and Anes Risks/Benef Reviewed Patient Risk: Low Procedure Risk: Intermediate Anesthetic Plan Anesthetic Plan: GA Disposition: Standard PACU
--- NOTE | 2020-05-31 09:12 | MHC.CM.PN ---
PATIENT IS INDEPENDENT WITH HIS ADLS. NO DME,. [facility], OR [facility] IN THE HOME. HCP/POA IS GABRIEL, AND A COPY IS AT HOME. COPY REQUESTED FOR MEDICAL CHART. PATIENT IS ACTIVE WITH [facility]. PLAN IS FOR SURGERY TODAY. CASE MANAGEMENT FOLLOWING FOR ANY DISCHARGE NEEDS. IMM 05/31 IN CHART
--- NOTE | 2020-05-31 09:14 | MHC.SHP ---
Pre-Procedural Eval Section A The patient is an INPATIENT: Yes The History & Physical has been completed within 30 days and I have reviewed it.: Yes Section B Chief Complaint: Perforated appendicitis with abscess Allergies: Allergies Allergy/AdvReac Type Severity Reaction Status Date / Time naproxen [From ALEVE] Allergy Intermediate RASH Verified 04/18/20 11:03 Plan Diagnosis/Plan: Unchanged I have reviewed the history and physical and performed a pertinent physical examination on my patient. No changes have occurred unless specified.
--- NOTE | 2020-05-31 11:19 | PM.OP ---
Brief Operative Note Date of Service: 05/31/20 Pre-op diagnosis: Acute appendicitis with abscess Post-op diagnosis: same Procedure: Exploratory laparoscopy converted to open mini-laparotomy, drainage of appendiceal abscess Implants: None Surgeon: Rony Joyner MD Anesthesia: GETA Estimated blood loss (mL): 20 Pathology: other (Abdominal abscess culture) Condition: stable Disposition: PACU
--- NOTE | 2020-05-31 11:21 | W.PM.OPN ---
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 Patient has been having lower abdominal symptoms for several weeks which seemed to be worsening in severity. This was initially attributed to the chemotherapy is receding for the prostate cancer however the medications were stopped and he continued to have symptoms. He subsequently presented to the emergency department and was noted to have inflammation of the appendix and an abscess in the right lower quadrant. This was felt to be not approachable by Interventional Radiology therefore a presents now for laparoscopic or possible open appendectomy with drainage of the abscess. Operative findings: Patient was found to have marked inflammation involving the right lower quadrant with adherent terminal ileum sigmoid colon and cecum with a large abscess in the pelvis with yellow cloudy pus. The appendix was densely adherent to multiple loops of bowel with significant inflammation surrounding the bowel wall making removal unsafe due to the possibility of injury to colon and small bowel. The abscess was drained and the abscess cavity irrigated thoroughly. A Raimundo-Fernandes drain was left in place. A specimen of the abscess was sent for culture. Specimen: Peritoneal abscess culture Complications: None Estimated blood loss: 20 mL Procedure details: Patient was brought to the OR placed in a supine position. After administering general anesthesia the patient's abdomen was prepped with ChloraPrep draped in a sterile fashion. A surgical time-out was called and the consent confirmed. Patient received preoperative antibiotics and Venodyne boots were in place. Local anesthesia consisting of 0.75% Sensorcaine with epinephrine was then infiltrated in periumbilical region. A 5 mm incision was made with scalpel. A Veress needle was then inserted while elevating the abdominal cavity with towel clips. After a positive drop test the abdomen was insufflated to a pressure of 15 mm of mercury. The Veress needle was removed and a 5 mm trocar inserted. An angled 30 degree 5 mm scope was then inserted in the abdomen explored. A 2nd 5 mm trocar was placed in the lower midline and a 12 mm trocar placed in the left lower quadrant. The patient was placed in a Trendelenburg position rotated to the left. Multiple adhesions were noted to the cecum to the anterior abdominal wall. These were taken down using electrocautery with the LigaSure. The cecum was identified as was the terminal ileum with a large inflammatory reaction extending into the pelvis. Multiple loops of small bowel were densely adherent to this area of inflammation. Attempts to dissect this laparoscopically were unsuccessful felt to be unsafe. A mini-laparotomy was therefore created using the lower midline incision as a starting point extending this incision laterally in the right lower quadrant. This was directly over the abscess cavity. Incision was carried down through subcutaneous tissue past Soraida's fashion up to the external oblique aponeurosis. This was incised with a scalpel. The rectus muscle was then divided using electrocautery. The inferior epigastric artery was identified and ligated proximally and distally. Posterior sheath was then opened and peritoneum entered. A self-retaining retractor was then inserted. Using a combination of sharp and blunt dissection the abscess cavity was identified and entered. Thick yellow purulence was encountered. A specimen was sent for wound culture. The abscess cavity was completely drained and then irrigated copiously with warm saline solution. Attempts to dissect the appendix were unsuccessful given the dense adherence to surrounding loops of bowel. It appeared quite evident that this abscess has been present for several weeks given the degree of inflammation. It was therefore decided to leave the redness of appendix in place and placed a large Raimundo-Fernandes drain in the abscess cavity. This was brought out through the left lower quadrant incision and secured to the skin using a 3-0 nylon suture. This was connected to a small-bowel. The wounds were again irrigated with saline solution and suctioned dry. Peritoneum and posterior sheath were closed using a running 0 Polysorb suture. Anterior rectus sheath was closed using a running 0 Polysorb suture. Soraida's fascia and dermis were loosely applied using interrupted 3-0 Polysorb sutures. Skin was loosely closed using skin luis. Sterile dressings were then applied. The patient tolerated the procedure well. Sponge, instrument, needle counts reported as correct. The patient was transferred to PACU in stable condition.
[2020-06-01] MEDS: Dextrose 5 % and Lactated Ring 1,000 ML 125 ML IVCONT ×3 (02:42→21:36)
[2020-06-01] MEDS: Piperacillin Sodium/Tazobactam 3.375 GM in 0.9 % Sodium Chloride 50 ML IV ×4 (02:42→21:05)
[2020-06-01 07:15] VITALS: BP 149/62; PULSE 59; RESP 18; TEMP 36.8; O2SAT 95
[2020-06-01] MEDS: 0.9 % Sodium Chloride Flush 3 ML SYRINGE IVFLUSH ×2 (08:14→14:58)
--- NOTE | 2020-06-01 08:40 | PM.PNGS ---
Subjective Subjective Date of Service: 06/01/20 Interval history: Pod 1 status post drainage of appendiceal abscess, exploratory laparoscopy. Patient reports feeling improved this morning with decreased abdominal pain. He was able to tolerate some p.o. but not much yesterday but does feel little bit hungry this morning. Physical Exam Vital Signs: Vital Signs: Last Vital Signs Temp 98.2 F 06/01/20 07:15 Pulse 59 06/01/20 07:15 Resp 18 06/01/20 07:15 BP 149/62 H 06/01/20 07:15 Pulse Ox 95 06/01/20 07:15 Body Mass Index 25.9 Const: General: cooperative, healthy appearing, comfortable and no acute distress Resp: Other: No respiratory distress, breathing comfortably on room air GI: Other: Incision clean, dry, and intact without redness or discharge. NESSA with serous fluid, no pus Extrem: Other: No edema Progress Note: A&P Assessment and plan (1) Acute appendicitis with appendiceal abscess: Status: Acute Assessment and Plan: 70-year-old male status post exploratory laparoscopy converted to the open lap with drainage of a right lower quadrant abscess due to appendicitis. I reviewed the operative findings and procedure with the patient and answered his questions. He feels improved today and will try the regular diet. Will continue the IV antibiotics at least for another day pending culture results. Drain is producing serous fluid and will probably be removed prior to discharge. Patient encouraged to ambulate today. Fall Risk Details Current Medications: Current Medications Generic Name Dose Route Start Last Admin Trade Name Freq PRN Reason Stop Dose Admin Dextrose/Lactated Ringer's 1,000 mls @ 125 mls/hr 05/30/20 19:43 06/01/20 08:17 D5lr IVCONT 0 mls/hr .Q8H SAUNDRA Infusion Piperacillin Sod/Tazobactam 50 mls @ 100 mls/hr 05/30/20 19:43 06/01/20 08:12 Sod 3.375 gm/ Sodium Chloride IV 100 mls/hr Q6H SAUNDRA Administration Morphine Sulfate 4 mg 05/30/20 19:42 05/31/20 04:41 Morphine Sulfate 4 Mg/Ml Cartridge IVPUSH 4 mg Q4H PRN Administration Pain, Severe (Pain Scale 7-10) Ondansetron HCl 4 mg 05/31/20 05:58 Ondansetron Hcl 4 Mg/2 Ml Vial IVPUSH Q8H PRN Nausea Oxycodone HCl 5 mg 05/31/20 12:20 Oxycodone Hcl Immed Release 5 Mg Tablet PO Q4H PRN Pain, Moderate (Pain Scale 4-6 Pharmacy Consult 1 each 05/30/20 18:03 Consult Rx Perform Med Rec MISCELLANE ONCE PRN Consult order Sodium Chloride 3 ml 05/31/20 00:00 06/01/20 08:14 0.9 % Sodium Chloride Flush 3 Ml Syringe IVFLUSH 3 ml QSHIFT SAUNDRA Administration Zolpidem Tartrate 5 mg 05/30/20 19:43 Zolpidem Tartrate 5 Mg Tablet PO BEDTIME PRN Insomnia Time Spent With Patient Time: Total time spent is greater than 50% in coordination of care (as documented) at patient's floor/unit and/or counseling patient: Time with patient: 15 - 24 minutes
[2020-06-01 12:20] VITALS: O2SAT 95
--- NOTE | 2020-06-01 13:48 | HO.POSTANES ---
Post Anesthesia Evaluation Post Anesthesia Evaluation Vital Signs: Vital Signs Temp Pulse Resp BP Pulse Ox 06/01/20 12:20 95 06/01/20 07:15 98.2 F 59 18 149/62 H 95 Anesthesia: General Endotracheal-GETA Mental Status: Awake Pain Control: Satisfactory Nausea/Vomiting: None Hydration: Adequate Anesthesia-Related Issues: No Anes. Related Issues
[2020-06-01 15:34] VITALS: BP 151/63; PULSE 56; RESP 20; TEMP 36.7; O2SAT 95
[2020-06-01] MEDS: Zolpidem Tartrate 5 MG TABLET PO (22:59)
[2020-06-02 02:15] VITALS: BP 149/67; PULSE 59; RESP 17; TEMP 36.7; O2SAT 99
[2020-06-02] MEDS: Piperacillin Sodium/Tazobactam 3.375 GM in 0.9 % Sodium Chloride 50 ML IV ×4 (02:40→20:03)
[2020-06-02 06:27] LABS: MANUAL DIFF FLAG NO
[2020-06-02] MEDS: Dextrose 5 % and Lactated Ring 1,000 ML 125 ML IVCONT (06:45)
[2020-06-02 06:48] LABS: Basophils Percent Auto 0.3 % (0-2); Eosinophils Absolute Auto 0.2 X10*3/uL (0.0-0.4); Eosinophils Percent Auto 1.7 % (0-4); Hemoglobin 10.6 g/dl (14.0-18.0); Lymphocytes Absolute Auto 1.5 X10*3/uL (1.2-4.9); Lymphocytes Percent Auto 14.1 % (20-40); Mean Corpuscular HGB Conc 33.1 g/dl (31.0-36.0); Mean Corpuscular Hemoglobin 28.7 pg (27.0-33.0); Mean Corpuscular Volume 86.7 fL (80-98); Mean Platelet Volume 11.2 fL (9.4-12.4); Monocytes Absolute Auto 0.9 X10*3/uL (0.1-1.2); Monocytes Percent Auto 8.5 % (2-11); Neutrophils Absolute Auto 7.8 X10*3/uL (2.0-8.3); Neutrophils Percent Auto 74.4 % (45-73); Platelet Count 222 X10*3/uL (160-400); Red Blood Count 3.69 X10*6/uL (4.60-5.80); Red Cell Distribution Width 12.4 % (11.0-16.0); White Blood Count 10.4 X10*3/uL (4.8-10.8)
[2020-06-02 06:54] LABS: Anion Gap 14 (12-20); Blood Urea Nitrogen 16 mg/dL (9-16); Calcium 7.7 mg/dL (8.4-10.2); Carbon Dioxide 21 mmol/L (22-29); Chloride 105 mmol/L (96-108); Creatinine Clr Calc Pharmacy 69.8; Estimated Glomerular Filt Rate > 60; Glucose Random 119 mg/dL (60-115); Potassium 4.2 mmol/l (3.3-5.1); Sodium 136 mmol/L (135-145)
[2020-06-02 07:20] VITALS: BP 158/76; PULSE 54; RESP 18; TEMP 36.5; O2SAT 96
--- NOTE | 2020-06-02 08:59 | PM.PNGS ---
Subjective Subjective Date of Service: 06/02/20 <Afshan Yarbrough PA-C - Last Filed: 06/02/20 09:04> 06/02/20 <Rony Joyner MD - Last Filed: 06/02/20 12:47> Interval history: Tired this morning. Tolerating small amount of solid food but appetite is poor. Denies flatus or BM. Mild incisional pain. OOB to chair this morning and has been ambulating. <Afshan Yarbrough PA-C - Last Filed: 06/02/20 09:04> Physical Exam Vital Signs: Vital Signs: Last Vital Signs Temp 97.7 F 06/02/20 07:20 Pulse 54 06/02/20 07:20 Resp 18 06/02/20 07:20 BP 158/76 H 06/02/20 07:20 Pulse Ox 96 06/02/20 07:20 Body Mass Index 25.9 <Afshan Yarbrough PA-C - Last Filed: 06/02/20 09:04> Const: General: comfortable, no acute distress and alert <Afshan Yarbrough PA-C - Last Filed: 06/02/20 09:04> Orientation/consciousness: patient oriented x3 <PERCY Maier Last Filed: 06/02/20 09:04> Eyes: Sclerae: sclerae normal <Afshan Yarbrough PA-C - Last Filed: 06/02/20 09:04> Resp: Effort & Inspection: normal respiratory effort <Afshan Yarbrough PA-C - Last Filed: 06/02/20 09:04> GI: Other: NESSA drain with seropurulent drainage <Afshan Yarbrough PA-C - Last Filed: 06/02/20 09:04> Inspection: No distended and Yes incision (clean) <PERCY Maier Last Filed: 06/02/20 09:04> Palpation (GI): Soft to palpation, Tenderness to palpation present (GI) (mild, incisional), no guarding, not rigid and No Rebound tenderness present <Afshan Yarbrough PA-C - Last Filed: 06/02/20 09:04> Skin: General skin exam: no rashes or lesions noted <Afshan Yarbrough PA-C - Last Filed: 06/02/20 09:04> Neuro: General: patient oriented x3 <Afshan Yarbrough PA-C - Last Filed: 06/02/20 09:04> Extrem: General: Yes no clubbing, cyanosis or edema <Afshan Yarbrough PA-C - Last Filed: 06/02/20 09:04> Progress Note: A&P Assessment and plan (1) Metastatic malignant neoplasm to prostate: Status: Acute <PERCY Maier Last Filed: 06/02/20 09:04> (2) Acute appendicitis with appendiceal abscess: Problem details: POD #2 s/p exploratory laparoscopy converted to open with drainage of a right lower quadrant abscess due to appendicitis <Afshan Yarbrough PA-C - Last Filed: 06/02/20 09:04> Status: Acute <Afshan Yarbrough PA-C - Last Filed: 06/02/20 09:04> Assessment and Plan: Doing fairly well post op. VSS. Abd exam is benign with appropriate post op tenderness, incision clean. NESSA with seropurulent drainage. WBC normalized. Will continue IV antibiotics. Keep NESSA drain in place. Diet as tolerated. Patient encouraged OOB and ambulate today. Await return of GI fxn. <Afshan Yarbrough PA-C - Last Filed: 06/02/20 09:04> Patient with some incisional tenderness, tolerating some po, not much of an appetite yet. Wounds cleam, WBC improved. + BM today, loose. Agree with the above assessment and plan. <Rony Joyner MD - Last Filed: 06/02/20 12:47> (3) Colon adenocarcinoma: Status: Acute <Afshan Yarbrough PA-C - Last Filed: 06/02/20 09:04> Fall Risk Details Current Medications: Current Medications Generic Name Dose Route Start Last Admin Trade Name Freq PRN Reason Stop Dose Admin Dextrose/Lactated Ringer's 1,000 mls @ 80 mls/hr 05/30/20 19:43 06/02/20 06:45 D5lr IVCONT 125 mls/hr .[id number] SAUNDRA Administration Piperacillin Sod/Tazobactam 50 mls @ 100 mls/hr 05/30/20 19:43 06/02/20 08:51 Sod 3.375 gm/ Sodium Chloride IV 100 mls/hr Q6H SAUNDRA Administration Morphine Sulfate 4 mg 05/30/20 19:42 05/31/20 04:41 Morphine Sulfate 4 Mg/Ml Cartridge IVPUSH 4 mg Q4H PRN Administration Pain, Severe (Pain Scale 7-10) Ondansetron HCl 4 mg 05/31/20 05:58 Ondansetron Hcl 4 Mg/2 Ml Vial IVPUSH Q8H PRN Nausea Oxycodone HCl 5 mg 05/31/20 12:20 Oxycodone Hcl Immed Release 5 Mg Tablet PO Q4H PRN Pain, Moderate (Pain Scale 4-6 Pharmacy Consult 1 each 05/30/20 18:03 Consult Rx Perform Med Rec MISCELLANE ONCE PRN Consult order Sodium Chloride 3 ml 05/31/20 00:00 06/02/20 08:52 0.9 % Sodium Chloride Flush 3 Ml Syringe IVFLUSH Not Given QSHIFT [facility] Zolpidem Tartrate 5 mg 05/30/20 19:43 06/01/20 22:59 Zolpidem Tartrate 5 Mg Tablet PO 5 mg BEDTIME PRN Administration Insomnia <Afshan Yarbrough PA-C - Last Filed: 06/02/20 09:04> Time Spent With Patient Time: Total time spent is greater than 50% in coordination of care (as documented) at patient's floor/unit and/or counseling patient: <Afshan Yarbrough PA-C - Last Filed: 06/02/20 09:04> Time with patient: 15 - 24 minutes <Afshan Yarbrough PA-C - Last Filed: 06/02/20 09:04>
[2020-06-02 15:31] VITALS: BP 141/75; PULSE 55; RESP 18; TEMP 36.1; O2SAT 97
[2020-06-02 23:54] VITALS: BP 164/73; PULSE 49; RESP 20; TEMP 36.7; O2SAT 95
[2020-06-03] MEDS: Piperacillin Sodium/Tazobactam 3.375 GM in 0.9 % Sodium Chloride 50 ML IV ×2 (02:07→08:04)
[2020-06-03] MEDS: 0.9 % Sodium Chloride Flush 3 ML SYRINGE IVFLUSH ×2 (02:12→08:05)
[2020-06-03 07:15] VITALS: BP 156/59; PULSE 47; RESP 16; TEMP 36.3; O2SAT 97
--- NOTE | 2020-06-03 07:47 | P.PNGS_ITS ---
Subjective Subjective Date of Service: 06/03/20 <Afshan Yarbrough PA-C - Last Filed: 06/03/20 07:51> 06/03/20 <Rony Joyner MD - Last Filed: 06/03/20 07:59> Interval history: Feeling better today, complains mostly of gas pains. Tolerating solid food. Passing flatus and has had multiple loose stools. OOB and ambulating to bathroom. Wants to go home. <Afshan Yarbrough PA-C - Last Filed: 06/03/20 07:51> Physical Exam Vital Signs: Vital Signs: Last Vital Signs Temp 97.3 F 06/03/20 07:15 Pulse 47 L 06/03/20 07:15 Resp 16 06/03/20 07:15 BP 156/59 H 06/03/20 07:15 Pulse Ox 97 06/03/20 07:15 Body Mass Index 25.9 <Afshan Yarbrough PA-C - Last Filed: 06/03/20 07:51> Const: General: comfortable, no acute distress and alert <Afshan Yarbrough PA-C - Last Filed: 06/03/20 07:51> Orientation/consciousness: patient oriented x3 <PERCY Maier Last Filed: 06/03/20 07:51> Eyes: Sclerae: sclerae normal <Afshan Yarbrough PA-C - Last Filed: 06/03/20 07:51> Resp: Effort & Inspection: normal respiratory effort <Afshan Yarbrough PA-C - Last Filed: 06/03/20 07:51> GI: Other: NESSA drain output moderate, serous <Afshan Yarbrough PA-C - Last Filed: 06/03/20 07:51> Inspection: Yes distended (slightly) and Yes incision (clean) <PERCY Maier Last Filed: 06/03/20 07:51> Palpation (GI): Soft to palpation, Tenderness to palpation present (GI) (mild, incisional), no guarding, not rigid and No Rebound tenderness present <PERCY Maier Last Filed: 06/03/20 07:51> Skin: General skin exam: no rashes or lesions noted <Afshan Yarbrough PA-C - Last Filed: 06/03/20 07:51> Neuro: General: patient oriented x3 <Afshan Yarbrough PA-C - Last Filed: 06/03/20 07:51> Extrem: General: Yes no clubbing, cyanosis or edema <Afshan Yarbrough PA-C - Last Filed: 06/03/20 07:51> Progress Note: A&P Assessment and plan (1) Metastatic malignant neoplasm to prostate: Status: Acute <Afshan Yarbrough PA-C - Last Filed: 06/03/20 07:51> (2) Acute appendicitis with appendiceal abscess: Problem details: POD #3 s/p exploratory laparoscopy converted to open with drainage of a right lower quadrant abscess due to appendicitis <Afshan Yarbrough PA-C - Last Filed: 06/03/20 07:51> Status: Acute <Afshan Yarbrough PA-C - Last Filed: 06/03/20 07:51> Assessment and Plan: Continues to do well post op with good pain control and return of GI fxn. VSS. Abd exam is benign with appropriate post op tenderness, incision clean. NESSA with serous drainage. WBC has normalized. Pt is stable, clinically appearing well and feels ready for discharge to home today. Will d/c on PO course of Augmentin. F/u in office with Dr. Joyner in 1 week. Remove NESSA drain prior to d/c. Patient comfortable with plan. <Afshan Yarbrough PA-C - Last Filed: 06/03/20 07:51> Patient feels improved and is tolerating most of his diet without nausea or vomiting. Continues to have some loose stools, passing flatus. Incision is clean and intact without erythema. NESSA output is mostly serous fluid. Agree with the above assessment and plan. Will discharged to home follow-up in 1 week for staple removal. Patient encouraged to call for any concerns including fever, chills, nausea, vomiting, or increased abdominal pain. He will continue on oral antibiotics as noted above. <Rony Joyner MD - Gennaro loco Filed: 06/03/20 07:59> (3) Colon adenocarcinoma: Status: Acute <Afshan Yarbrough PA-C - Last Filed: 06/03/20 07:51> Fall Risk Details Current Medications: Current Medications Generic Name Dose Route Start Last Admin Trade Name Freq PRN Reason Stop Dose Admin Dextrose/Lactated Ringer's 1,000 mls @ 80 mls/hr 05/30/20 19:43 06/03/20 02:13 D5lr IVCONT Not Given .[id number] SAUNDRA Piperacillin Sod/Tazobactam 50 mls @ 100 mls/hr 05/30/20 19:43 06/03/20 02:45 Sod 3.375 gm/ Sodium Chloride IV Infused Q6H SAUNDRA Infusion Morphine Sulfate 4 mg 05/30/20 19:42 05/31/20 04:41 Morphine Sulfate 4 Mg/Ml Cartridge IVPUSH 4 mg Q4H PRN Administration Pain, Severe (Pain Scale 7-10) Ondansetron HCl 4 mg 05/31/20 05:58 Ondansetron Hcl 4 Mg/2 Ml Vial IVPUSH Q8H PRN Nausea Oxycodone HCl 5 mg 05/31/20 12:20 Oxycodone Hcl Immed Release 5 Mg Tablet PO Q4H PRN Pain, Moderate (Pain Scale 4-6 Pharmacy Consult 1 each 05/30/20 18:03 Consult Rx Perform Med Rec MISCELLANE ONCE PRN Consult order Sodium Chloride 3 ml 05/31/20 00:00 06/03/20 02:12 0.9 % Sodium Chloride Flush 3 Ml Syringe IVFLUSH 3 ml QSHIFT SAUNDRA Administration Zolpidem Tartrate 5 mg 05/30/20 19:43 06/01/20 22:59 Zolpidem Tartrate 5 Mg Tablet PO 5 mg BEDTIME PRN Administration Insomnia <Afshan Yarbrough PA-C - Last Filed: 06/03/20 07:51> Time Spent With Patient Time: Total time spent is greater than 50% in coordination of care (as documented) at patient's floor/unit and/or counseling patient: <PERCY Maier Last Filed: 06/03/20 07:51> Time with patient: 15 - 24 minutes <PERCY Maier Last Filed: 06/03/20 07:51>
--- NOTE | 2020-06-03 08:17 | MHC.CM.PN ---
PATIENT IS DISCHARGED HOME - SELF CARE. TO TRANSPORT IMM 06/02 IN CHART
--- NOTE | 2020-06-03 09:35 | P.DS_ITS ---
DS: Providers Provider Date of admission: 05/30/20 19:13 Primary care physician: Prabhu Heredia MD DS: Diagnosis Discharge Diagnosis (1) Acute appendicitis with appendiceal abscess: Status: Acute Problem details: s/p exploratory laparoscopy converted to open with drainage of a right lower quadrant abscess due to appendicitis DS: Medications Discharge Medications Home Medications: Home Medications Medication Instructions Recorded Confirmed cholecalciferol (vitamin D3) 25 mcg PO DAILY 03/18/20 06/01/20 multivitamin 1 tab PO DAILY 03/18/20 06/01/20 tadalafil [Cialis] 20 mg PO DAILY PRN 03/18/20 06/01/20 magnesium 250 mg PO DAILY 04/18/20 06/01/20 Previous Rx's Medication Instructions Recorded bicalutamide [Casodex] 50 mg PO DAILY #30 tab 04/23/20 amoxicillin-pot clavulanate 1 tab PO BID #14 tab 06/03/20 [Augmentin] oxycodone 5 mg PO Q4H PRN #20 tab 06/03/20 DS: Summary Hospital Course Hospital Course: BRIEF HPI: Jonas Tony is a 70 year old male with a history of a distal transverse colon cancer as well as metastatic prostate cancer with Mets to the lung, currently undergoing chemotherapy, now presenting with complaints of generalized malaise and lower abdominal pain. The symptoms began approximately 1 week ago and progressed throughout the week. He reports fever and chills, decreased appetite, and constipation. He subsequently presented to the emergency department and was noted to be tender in the lower abdomen on the right side. Laboratories revealed an elevated WBC. A CT of the abdomen and pelvis revealed an abscess collection in the right lower quadrant with adjacent appendix which was enlarged suggestive of a perforated appendicitis with an abscess. HOSPITAL COURSE: Patient is admitted for management of this perforated appendicitis/abscess. He was started on IV zosyn, IVF and IV analgesics as needed for pain. He was made NPO. IR drainage of the abscess was requested however they did not feel they could safely drain the abscess. The patient had persistent RLQ pain. It was therefore recommended to proceed with attempted laparoscopic appendectomy, possible open. The patient agreed and he was added onto the OR schedule for that day. On 05/31/20, exploratory laparoscopy converted to a mini laparotomy, drainage of appendiceal abscess. A NESSA drain was placed intraoperatively. The patient was found to have marked inflammation involving the right lower quadrant with adherent terminal ileum sigmoid colon and cecum with a large abscess in the pelvis with yellow cloudy pus. The appendix was densely adherent to multiple loops of bowel with significant inflammation surrounding the bowel wall making removal unsafe due to the possibility of injury to colon and small bowel. The patient tolerated the procedure well and was admitted for observation. He had an uncomplicated post operative course. He remained inpatient for 3 days post operatively for IV zosyn and pain control. His WBC normalized. On POD#3, the day of discharge, he felt improved with only c/o gas pains and was tolerating a solid diet. He was passing flatus and having loose stools. His vitals were stable and abdomen was benign with appropriate post op tenderness and a clean incision. The NESSA drain output was serous and was removed. His abscess cultures came back positive for E. Coli. He was discharged to home on 06/03/20 in stable condition. He was discharged on a PO course of Bactrim. He is to follow up with Dr. Joyner in office in 1 week. Status at Discharge Functional status at discharge: independent ambulation Overall status at discharge: patient is progressing back to baseline Time Spent with Patient Time attestation: Total time spent providing and/or coordinating discharge servi daylin: Physical Exam Vital Signs: Vital Signs: Last Vital Signs Temp 97.3 F 06/03/20 07:15 Pulse 47 L 06/03/20 07:15 Resp 16 06/03/20 07:15 BP 156/59 H 06/03/20 07:15 Pulse Ox 97 06/03/20 07:15 Body Mass Index 25.9 Const: General: comfortable, no acute distress and alert Orientation/consciousness: patient oriented x3 Eyes: Sclerae: sclerae normal Resp: Effort & Inspection: normal respiratory effort GI: Other: NESSA drain with serous drainage Inspection: Yes distended (mild) and Yes incision (clean) Palpation (GI): Soft to palpation, Tenderness to palpation present (GI) (mild, incisional), no guarding, not rigid and No Rebound tenderness present Skin: General skin exam: no rashes or lesions noted Neuro: General: patient oriented x3 Extrem: General: Yes no clubbing, cyanosis or edema DS: Data Data Completed and Pending Labs on day of discharge: 05/30/20 14:15 CT abdomen pelvis w con Stat 0.9 % Sodium Chloride [Ns] 1,000 ml IV 999 mls/hr ondansetron HCL [Zofran] 4 mg IVPUSH ONCE ONE 05/30/20 14:17 XR chest 1V Stat 05/30/20 14:26 Bladder Scan NOW 05/30/20 14:55 Basic Metabolic Panel Stat Calcium Stat Complete Blood Count Auto Diff Stat Lipase Stat Liver Panel Stat Magnesium Stat Phosphorus Stat SARS-CoV2/FLU/RSV Stat 05/30/20 15:15 HYDROmorphone HCl [Dilaudid] 0.5 mg IVPUSH ONCE ONE 05/30/20 15:39 ECG 12 lead EKG Stat EKG Documentation DIRECTED 05/30/20 15:48 CT angio chest PE protocol Stat 05/30/20 16:00 0.9 % Sodium Chloride [Ns] 500 ml IV 500 mls/hr 05/30/20 16:25 iohexoL 350 MG/ML [Omnipaque 350 MG/ML] 100 ml IV ONCE ONE 05/30/20 16:46 UA CC w/rflx Micro + Cult Stat 05/30/20 19:08 Transfer Order Routine 05/30/20 19:43 Acetaminophen [Tylenol] 650 mg PO Q6H PRN 05/30/20 19:50 Piperacillin Sodium/Tazobactam [Zosyn] 3.375 gm IV .STK-MED ONE 05/31/20 Routine Culture w Gram Stain Routine 05/31/20 01:15 Piperacillin Sodium/Tazobactam [Zosyn] 3.375 gm IV .STK-MED ONE 05/31/20 06:54 Basic Metabolic Panel DAILY@0600 Complete Blood Count Auto Diff DAILY@0600 05/31/20 07:57 Piperacillin Sodium/Tazobactam [Zosyn] 3.375 gm IV .STK-MED ONE 05/31/20 08:06 Transfer Order Routine 05/31/20 08:59 Bupivacaine MPF 0.75 % w/EPI [Sensorcaine MPF 0.75%/EPI 1:200,000] 30 ml .ROUTE .STK-MED ONE 05/31/20 09:01 Lidocaine HCl 2 % MPF [Xylocaine 2 % MPF] 5 ml .ROUTE .STK-MED ONE Rocuronium [place] [Zemuron] 100 mg IV .STK-MED ONE Sugammadex Sodium [Bridion] 200 mg IVPUSH .STK-MED ONE dexAMETHasone sod phosphate [Decadron] 4 mg .ROUTE .STK-MED ONE ondansetron HCL [Zofran] 4 mg .ROUTE .STK-MED ONE propofoL [Diprivan] 200 mg IVPUSH .STK-MED ONE 05/31/20 09:02 fentaNYL citrate/PF [Sublimaze] 2,500 mcg .ROUTE .STK-MED ONE 05/31/20 09:15 Lactated Ringers [Lr] 1,000 ml IVCONT 50 mls/hr 05/31/20 09:19 cefoTEtan disodium [Cefotan] 2 gm .ROUTE .STK-MED ONE 05/31/20 09:52 Midazolam HCl/PF [Versed] 2 mg .ROUTE .STK-MED ONE 05/31/20 11:16 Promethazine HCL [Phenergan] 25 mg IV .STK-MED ONE 05/31/20 11:24 Acetaminophen [Tylenol] 650 mg PO ONCE PRN HYDROmorphone HCl [Dilaudid] 0.5 mg IVPUSH Q5M PRN Promethazine HCL [Phenergan] 12.5 mg 0.9 % Sodium Chloride [Ns] 50 ml IV ONCE fentaNYL citrate/PF [Sublimaze] 25 mcg IVPUSH Q5M PRN ondansetron HCL [Zofran] 4 mg IVPUSH ONCE PRN oxyCODONE HCl Immed Release [Roxicodone] 10 mg PO ONCE PRN 05/31/20 12:20 Continuous pulse oximetry CONT Surgical prep, hair removal PREOP 05/31/20 14:04 Piperacillin Sodium/Tazobactam [Zosyn] 3.375 gm IV .STK-MED ONE 05/31/20 19:18 Piperacillin Sodium/Tazobactam [Zosyn] 3.375 gm IV .STK-MED ONE 06/01/20 02:38 Piperacillin Sodium/Tazobactam [Zosyn] 3.375 gm IV .STK-MED ONE 06/01/20 08:02 Piperacillin Sodium/Tazobactam [Zosyn] 3.375 gm IV .STK-MED ONE 06/01/20 14:14 Piperacillin Sodium/Tazobactam [Zosyn] 3.375 gm IV .STK-MED ONE 06/01/20 19:53 Piperacillin Sodium/Tazobactam [Zosyn] 3.375 gm IV .STK-MED ONE 06/02/20 02:36 Piperacillin Sodium/Tazobactam [Zosyn] 3.375 gm IV .STK-MED ONE 06/02/20 06:02 Basic Metabolic Panel DAILY@0600 Complete Blood Count Auto Diff DAILY@0600 06/02/20 08:35 Piperacillin Sodium/Tazobactam [Zosyn] 3.375 gm IV .STK-MED ONE 06/02/20 14:48 Piperacillin Sodium/Tazobactam [Zosyn] 3.375 gm IV .STK-MED ONE 06/02/20 19:20 Piperacillin Sodium/Tazobactam [Zosyn] 3.375 gm IV .STK-MED ONE 06/03/20 01:02 Piperacillin Sodium/Tazobactam [Zosyn] 3.375 gm IV .STK-MED ONE 06/03/20 07:55 Piperacillin Sodium/Tazobactam [Zosyn] 3.375 gm IV .STK-MED ONE Laboratory Last Values WBC 10.4 X10*3/uL (4.8-10.8) 06/02/20 06:02 RBC 3.69 X10*6/uL (4.60-5.80) L 06/02/20 06:02 Hgb 10.6 g/dl (14.0-18.0) L 06/02/20 06:02 Hct 32.0 % (42-52) L 06/02/20 06:02 MCV 86.7 fL (80-98) 06/02/20 06:02 MCH 28.7 pg (27.0-33.0) 06/02/20 06:02 MCHC 33.1 g/dl (31.0-36.0) 06/02/20 06:02 RDW 12.4 % (11.0-16.0) 06/02/20 06:02 Plt Count 222 X10*3/uL (160-400) 06/02/20 06:02 MPV 11.2 fL (9.4-12.4) 06/02/20 06:02 Immature Gran % (Auto) 1.0 % (0.0-0.4) H 06/02/20 06:02 Neut % (Auto) 74.4 % (45-73) H 06/02/20 06:02 Lymph % (Auto) 14.1 % (20-40) L 06/02/20 06:02 [place] % (Auto) 8.5 % (2-11) 06/02/20 06:02 Eos % (Auto) 1.7 % (0-4) 06/02/20 06:02 Baso % (Auto) 0.3 % (0-2) 06/02/20 06:02 Lymph # (Auto) 1.5 X10*3/uL (1.2-4.9) 06/02/20 06:02 [place] # (Auto) 0.9 X10*3/uL (0.1-1.2) 06/02/20 06:02 Eos # (Auto) 0.2 X10*3/uL (0.0-0.4) 06/02/20 06:02 Baso # (Auto) 0.0 X10*3/uL (0.0-0.2) 06/02/20 06:02 Abs Immat Gran (auto) 0.10 X10*3/uL (0.00-0.03) H 06/02/20 06:02 Absolute Neuts (auto) 7.8 X10*3/uL (2.0-8.3) 06/02/20 06:02 Absolute Nucleated RBC 0.000 X10*3/uL (0.0-0.012) 06/02/20 06:02 Nucleated RBC % (auto) 0.0 /100WBC (0.0-0.2) 06/02/20 06:02 Sodium 136 mmol/L (135-145) 06/02/20 06:02 Potassium 4.2 mmol/l (3.3-5.1) 06/02/20 06:02 Chloride 105 mmol/L (96-108) 06/02/20 06:02 Carbon Dioxide 21 mmol/L (22-29) L 06/02/20 06:02 Anion Gap 14 (12-20) 06/02/20 06:02 BUN 16 mg/dL (9-16) 06/02/20 06:02 Creatinine 1.16 mg/dL (0.5-1.4) 06/02/20 06:02 Estim Creat Clear Calc 69.8 06/02/20 06:02 Estimated GFR > 60 06/02/20 06:02 Random Glucose 119 mg/dL (60-115) H 06/02/20 06:02 Calcium 7.7 mg/dL (8.4-10.2) L 06/02/20 06:02 Phosphorus 3.3 mg/dL (2.7-4.5) 05/30/20 14:55 Magnesium 2.0 mg/dL (1.6-2.6) 05/30/20 14:55 Total Bilirubin 1.2 mg/dL (0.0-1.0) H 05/30/20 14:55 Direct Bilirubin 0.7 mg/dL (0.0-0.5) H 05/30/20 14:55 AST 22 U/L (5-37) 05/30/20 14:55 ALT 35 U/L (0-40) 05/30/20 14:55 Alkaline Phosphatase 151 U/L (39-117) H 05/30/20 14:55 Total Protein 6.6 g/dL (6.5-8.0) 05/30/20 14:55 Albumin 3.5 g/dL (3.5-5.0) 05/30/20 14:55 Lipase 7 U/L (8-78) L 05/30/20 14:55 Urine Color YELLOW 05/30/20 16:46 Urine Appearance CLEAR 05/30/20 16:46 Urine pH 5.5 (5.0-8.0) 05/30/20 16:46 Ur Specific [place] 1.025 (1.005-1.025) 05/30/20 16:46 Urine Protein TRACE MG/DL (NEG-TRACE) 05/30/20 16:46 Urine Glucose (UA) NEG MG/DL (NEG) 05/30/20 16:46 Urine Ketones 40 MG/DL (NEG) 05/30/20 16:46 Urine Blood NEG (NEG) 05/30/20 16:46 Urine Nitrite NEG (NEG) 05/30/20 16:46 Ur Leukocyte Esterase NEG (NEG) 05/30/20 16:46 Coronavirus (PCR) NEGATIVE (Negative) 05/30/20 14:55 Influenza Type A (PCR) NEGATIVE (Negative) 05/30/20 14:55 Influenza Type B (PCR) NEGATIVE (Negative) 05/30/20 14:55 RSV RNA Qual (PCR) NEGATIVE (Negative) 05/30/20 14:55 Discharge Plan Discharge Patient Disposition: Home, Self-Care Referrals: Prabhu Heredia MD [Primary Care Provider] - Rony Joyner MD [Physician] - 1 Week Discharge Medications: New oxycodone 5 mg tablet 5 mg PO Q4H PRN (Reason: pain (scale score 7-10)) Qty: 20 RF: 0 sulfamethoxazole-trimethoprim [Bactrim DS] 800-160 mg tablet 1 tab PO BID Qty: 14 RF: 0 Continued multivitamin Tablet 1 tab PO DAILY RF: 0 cholecalciferol (vitamin D3) 25 mcg (1,000 unit) Capsule 25 mcg PO DAILY RF: 0 tadalafil [Cialis] 20 mg Tablet 20 mg PO DAILY PRN (Reason: Erectile Dysfunction) RF: 0 magnesium 250 mg Tablet 250 mg PO DAILY RF: 0 bicalutamide [Casodex] 50 mg Tablet 50 mg PO DAILY Qty: 30 RF: 1 Discharge Orders: Discharge Order (Routine); Ordered 06/03/20 Ordered By: Afshan Yarbrough Diet: advance to usual diet Activity on Discharge: No heavy lifting Discharge Date/Time: 06/03/20 12:30 Activity Restrictions/Additional Instructions: If the incision area is tender, you may apply an ice pack for short intervals (No more than 20 minutes on, followed by at least 20 minutes off). Do not apply heat. Do not use creams, lotions, or topical antibiotics unless instructed to do so by your surgeon. These can cause infection or allergic reaction. Ok to shower. You have luis closing your incision and these will be removed approximately 10-14 days after surgery. Call Your Doctor If: -Your temperature exceeds 101.5? F -You experience excessive pain or swelling -You have an unexpected reaction to medication -You have excessive bleeding -You experience continued vomiting/nausea -Your incision begins to separate -Your incision shows signs of infection such as increased redness, swelling, excessive pain, drainage (light blood or clear fluid is normal) or heat Visit Report Forms: Patient Portal Discharge page Care Plan Goals: Return to baseline health after recovery period. Health Concerns: Hx of colon adenoCA, metastatic prostate CA, perforated acute appendicitis with abscess s/p laparotomy and drainage of abscess Plan of Treatment: Discharge to home with PO course of Bactrim, f/u in office in 1 week.
== END 2020-06-03 12:30 | disposition home or self-care (01) | DRG 357 ==
LOC: HO.ED 14:09 → HO.S3 20:18
PROVIDERS: Admitting Provider Surgery; Emergency Provider Emergency Medicine Emergency Medical Services; PCP Internal Medicine; Visit Provider Surgery
PROC: 0DTJ4ZZ Resection of Appendix, Percutaneous Endoscopic Approach (ICD-10-PCS; CPT 44970; principal; 2020-05-31 08:43)
DX: K35.33 Acute appendicitis with perforation, localized peritonitis, and gangrene, with abscess (principal); C18.4 Malignant neoplasm of transverse colon; C78.00 Secondary malignant neoplasm of unspecified lung; C61 Malignant neoplasm of prostate; Z20.828 Contact with and (suspected) exposure to other viral communicable diseases; Z88.6 Allergy status to analgesic agent; Z79.891 Long term (current) use of opiate analgesic; Z79.899 Other long term (current) drug therapy
CPT/HCPCS: 0241U; 36415; 71045; 71275; 74177; 80048; 80076; 81003; 82310; 83690; 83735; 84100; 85025; 87071; 87077; 87186; 87205; 93005; 96361; 96374; 96375; 99024; 99285; J1100; J1170; J2250; J2270; J2405; J2543; J3010; Q9967

== ENCOUNTER → 2020-06-11 14:33 | Outpatient (BNVA) | payer MEDICARE, SELFPAY | PROVIDERS: PCP Internal Medicine; Visit Provider Surgery | DX: K35.33 Acute appendicitis with perforation, localized peritonitis, and gangrene, with abscess (principal) | CPT/HCPCS: 99212 ==

== ENCOUNTER → 2020-06-25 10:20 | Outpatient (BNVA) | payer MEDICARE, SELFPAY | PROVIDERS: PCP Internal Medicine; Visit Provider Surgery | DX: K35.33 Acute appendicitis with perforation, localized peritonitis, and gangrene, with abscess (principal) | CPT/HCPCS: 99212 ==

== ENCOUNTER 2020-07-08 08:19 | Outpatient (REF) | payer MEDICARE, SELFPAY ==
--- NOTE | 2020-07-08 08:21 | CT_ITS ---
EXAMINATION: CT ABDOMEN AND PELVIS WITH CONTRAST CLINICAL INFORMATION: Prior acute appendicitis with perforation and localized peritonitis with abscess. Follow-up. Reported history of colon cancer. COMPARISON: Abdominal CT dated 05/30/2020. TECHNIQUE: Multidetector volumetric images were obtained from the superior aspect of the liver through the pubic symphysis following intravenous administration 85 mL of Omnipaque 350 contrast. Sagittal and coronal reformatted images were obtained on the technologist's workstation. Oral contrast: Yes This CT examination was performed using dose optimization techniques as appropriate, variously including the following: *Automated exposure control *Adjustment of mA and/or kV according to patient size (this includes techniques or standardized protocols for targeted exams where dose is matched to indication/reason for exam; i.e. extremities or head) *Use of iterative reconstruction technique DLP: 487 mGy-cm FINDINGS: LUNG BASES: An incompletely visualized 8 mm nodule in the left lower lobe has been described on prior imaging, similar in size. The lung bases are otherwise clear. There are no pleural effusions. LIVER, GALLBLADDER, AND BILIARY TREE: The liver is normal in size, shape, and attenuation. No focal hepatic lesion or biliary ductal dilatation is present. The gallbladder is unremarkable with no evidence of radiopaque gallstones, gallbladder wall thickening, or obvious pericholecystic inflammatory changes. PANCREAS: Unremarkable. SPLEEN: Normal in appearance. ADRENAL GLANDS: Unremarkable. KIDNEYS AND URETERS: The kidneys are normal in size, shape, and attenuation. Nonspecific mild perinephric stranding noted. No hydronephrosis, hydroureter, or calculi seen. BLADDER: Decompressed and limited for assessment. GASTROINTESTINAL TRACT: Postsurgical changes again noted at the splenic flexure in the colon. No evidence of a bowel obstruction. No large bowel thickening evident. Prior inflammatory changes and fluid collection in the right lower quadrant have completely resolved. ABDOMINAL WALL: Ventral abdominal wall hernia containing a loop of small bowel; no inflammatory changes or obstruction evident. Small fat-containing left inguinal hernia. LYMPH NODES: No bulky adenopathy identified. VASCULAR: Stable atherosclerotic wall calcifications in the lower abdominal aorta and common iliac vessels. PELVIC VISCERA: Unremarkable. OSSEOUS STRUCTURES: No acute osseous abnormality seen. Significant disc space narrowing again evident at the L4-L5 level. Presumed small lipoma in the left iliopsoas musculature is unchanged. CT/CT abdomen pelvis w con IMPRESSION: No acute process. Resolution of previous inflammatory changes and collection in the right lower quadrant. Chronic postoperative changes at the splenic flexure of the colon. Although incompletely imaged, left lower lobe lung nodule appears grossly similar.
[2020-07-08] MEDS: iohexoL 350 MG/ML 100 ML INFUS..BTL IV (10:49)
[2020-07-08] MEDS: Barium Sulfate Oral (Mocha) 450 ML ORAL.SUSP 900 ML PO (10:49)
== END 2020-07-08 08:20 | disposition home or self-care (01) ==
LOC: HO.CT 08:19
PROVIDERS: PCP Internal Medicine; Visit Provider Surgery
DX: C79.82 Secondary malignant neoplasm of genital organs (principal); K35.33 Acute appendicitis with perforation, localized peritonitis, and gangrene, with abscess
CPT/HCPCS: 74177; Q9967

== ENCOUNTER → 2020-10-30 09:02 | Outpatient (BNVA) | payer MEDICARE, SELFPAY | PROVIDERS: PCP Internal Medicine; Visit Provider Surgery | DX: K43.2 Incisional hernia without obstruction or gangrene (principal) | CPT/HCPCS: 99212 ==

== ENCOUNTER 2020-11-17 07:49 | Day surgery (SDC) | payer MEDICARE, SELFPAY ==
[2020-11-12 12:25] VITALS: BMI 28.3
--- NOTE | 2020-11-13 12:02 | HO.ANESPROP2 ---
Documented by User: Rachelle Ericksonney 11/13/20 12:07 HPI - Anesthesia Eval Consult details Narrative: 70yo M for Colonoscopy Colon CA s/p L hemicolectomy 12/2019, minilaparotomy with appy abcess drainage 05/2020 PMFSH Active Problems Active Problems: All Active Problems (Updated 11/12/20 @ 13:04 by Deloris Howard MD) Colon adenocarcinoma (Chronic) Acute appendicitis with appendiceal abscess (Acute) Metastatic malignant neoplasm to prostate (Acute) S/P appendectomy (Acute) Incisional hernia (Acute) Past Medical History Medical History (Updated 11/12/20 @ 13:04 by Deloris Howard MD) Acute appendicitis with appendiceal abscess Bowel cancer Colon cancer Colon polyps History of bradycardia SKAGWAY (hard of hearing) MAIK (obstructive sleep apnea) Prostate CA Seasonal allergies Skin cancer of face Family History Family History Father Heart attack Breast CA Sister Heart attack Sister Breast CA Ovarian ca Mother Medical history unknown Surgical History Surgical History (Updated 11/12/20 @ 13:04 by Deloris Howard MD) H/O arthroscopic knee surgery History of ankle surgery History of cataract surgery History of exploratory laparotomy History of inguinal hernia repair History of left hemicolectomy Hx of colonoscopy Hx of prostatectomy Hx of tonsillectomy Hx of tooth extraction Social History Social History Household Members: Spouse Housing: House Are you a primary healthcare management consultant to a significant other at home: No Do you presently have visiting nurse or other home services: No Alcohol intake: current Alcohol intake frequency: a few times a week Alcohol type: beer Patient Tobacco Use Status: Former Tobacco user Quit Date: 40+ yrs ago Tobacco use type: Cigarette Second Hand Smoke Exposure: No Use of substances other than those prescribed or required for medical reasons: No Have you been hit, kicked, punched, or otherwise hurt by someone within the past year? If so, by whom?: No Are you DNR?: No Advance Directives: No Advance Directives Information Provided: No Advance Directives on File: No Recently lost weight without trying: No Eating poorly because of decreased appetite: No Nutrition Risks: No Nutritional Risk service: No Current occupational status: retired Meds Allergies Allergy/AdvReac Type Severity Reaction Status Date / Time Seasonal Allergies Allergy Nasal Verified 11/12/20 11:25 congestion Home Medications Medication Instructions Recorded Confirmed Last Taken Type cholecalciferol (vitamin D3) 25 mcg PO DAILY 03/18/20 11/12/20 Unknown History multivitamin 1 tab PO DAILY 03/18/20 11/12/20 Unknown History vitamin [id number] acid 1 tab PO DAILY 07/01/20 11/12/20 Unknown History leuprolide (3 month) [Lupron Depot mg IM [id number] 11/12/20 Unknown History (3 month)] Exam Exam Date and Time: November 13, 2020 1202 Height,Weight and Vital Signs: Height 6 ft 3 in Weight 102.8 kg Pertinent Lab Results Pertinent Lab Results: Laboratory Tests 11/12/20 11/12/20 08:35 08:35 WBC 6.2 Hgb 12.3 L Hct 37.7 L Plt Count 210 Sodium 140 Potassium 5.2 H Chloride 109 H Carbon Dioxide 27 BUN 26 H Creatinine 1.15 Assessment and Plan Assessment Anesthesia Assessment: Chart Reviewed Documented by User: Radha Amato 11/17/20 09:35 PMFSH Past Medical History Medical History (Updated 11/12/20 @ 13:04 by Deloris Howard MD) Acute appendicitis with appendiceal abscess Bowel cancer Colon cancer Colon polyps History of bradycardia [place] (hard of hearing) MAIK (obstructive sleep apnea) Prostate CA Seasonal allergies Skin cancer of face Family History Family History Father Heart attack Breast CA Sister Heart attack Sister Breast CA Ovarian ca Mother Medical history unknown Surgical History Surgical History (Updated 11/12/20 @ 13:04 by Deloris Howard MD) H/O arthroscopic knee surgery History of ankle surgery History of cataract surgery History of exploratory laparotomy History of inguinal hernia repair History of left hemicolectomy Hx of colonoscopy Hx of prostatectomy Hx of tonsillectomy Hx of tooth extraction Social History Social History Household Members: Spouse Housing: House Are you a primary healthcare management consultant to a significant other at home: No Do you presently have visiting nurse or other home services: No Alcohol intake: current Alcohol intake frequency: a few times a week Alcohol type: beer Patient Tobacco Use Status: Former Tobacco user Quit Date: 40+ yrs ago Tobacco use type: Cigarette Second Hand Smoke Exposure: No Use of substances other than those prescribed or required for medical reasons: No Have you been hit, kicked, punched, or otherwise hurt by someone within the past year? If so, by whom?: No Are you DNR?: No Advance Directives: No Advance Directives Information Provided: No Advance Directives on File: No Recently lost weight without trying: No Eating poorly because of decreased appetite: No Nutrition Risks: No Nutritional Risk service: No Current occupational status: retired [employer] Allergies Allergy/AdvReac Type Severity Reaction Status Date / Time Seasonal Allergies Allergy Nasal Verified 11/12/20 11:25 congestion Home Medications Medication Instructions Recorded Confirmed Last Taken Type cholecalciferol (vitamin D3) 25 mcg PO DAILY 03/18/20 11/12/20 Unknown History multivitamin 1 tab PO DAILY 03/18/20 11/12/20 Unknown History vitamin [id number] acid 1 tab PO DAILY 07/01/20 11/12/20 Unknown History leuprolide (3 month) [Lupron Depot mg IM [id number] 11/12/20 Unknown History (3 month)] Exam Airway Mallampati Class: II (Multiole crowns laterally) TM Dist: >3cm Neck ROM: Full Heart: RRR Lungs: CtA Assessment and Plan Assessment Anesthesia Assessment: Anesthesia Plan Discussed and Chart Reviewed Final Anesthetic Review NPO: Yes ASA Class: III Final Preanesthetic Review: No Changes in Pt Med Stat and Consent Obtained/Reviewed Patient Risk: Intermediate Procedure Risk: Intermediate Anesthetic Plan Anesthetic Plan: MAC: Disposition: Standard PACU
[2020-11-17 09:18] VITALS: BP 139/73; PULSE 48; RESP 18; TEMP 36; O2SAT 99
[2020-11-17] MEDS: Lactated Ringers 1,000 ML 100 ML IVCONT (09:23)
[2020-11-17] MEDS: Sodium Phosphate,Mono-Dibasic 133 ML ENEMA PR (09:24)
[2020-11-17 10:26] VITALS: BP 125/69; PULSE 56; RESP 16; TEMP 36.1; O2SAT 100
--- NOTE | 2020-11-17 10:31 | PM.OP ---
Brief Operative Note Date of Service: 11/17/20 Pre-op diagnosis: Screening, Hx of colon cancer Post-op diagnosis: other (Ulceration at anastomosis, Diverticulosis) Procedure: Colonoscopy to the cecum with biopsies Surgeon: Rickie Lira Anesthesia: MAC Was an Golf Course Equipment Operator used for this Procedure?: No Estimated blood loss (mL): 5.0 Pathology: other (A. Biopsies from anastomosis) Condition: stable Disposition: PACU
[2020-11-17 10:41] VITALS: BP 130/86; PULSE 56; RESP 18; O2SAT 100
[2020-11-17 10:56] VITALS: BP 145/58; PULSE 44; RESP 18; O2SAT 100
--- NOTE | 2020-11-21 10:56 | OP_ITS ---
SURGEON: Rickie Lira MD INDICATIONS: The patient presents for followup of personal history of colon cancer and tubular adenoma of the colon. Full consent has been obtained from him for this, including risks of bleeding and perforation. PREOPERATIVE DIAGNOSIS: POSTOPERATIVE DIAGNOSIS: PROCEDURE PERFORMED: Colonoscopy to the cecum with biopsies. ESTIMATED BLOOD LOSS: COMPLICATIONS: ANESTHESIA: Monitored anesthesia care. ASSISTANTS: SPECIMENS: PREOPERATIVE DIAGNOSES: Personal history of colon cancer and tubular adenoma of the colon. POSTOPERATIVE DIAGNOSES: Personal history of colon cancer and tubular adenoma of the colon, some ulceration around the anastomosis, diverticulosis, and internal hemorrhoids. DESCRIPTION OF PROCEDURE: The patient was placed in the left lateral decubitus position. The digital rectal exam revealed no abnormalities. The Olympus video pediatric colonoscope was entered into the rectum and advanced easily to the cecum. Once in the cecum, I did identify normal-appearing cecal pouch with appendiceal orifice and a normal-appearing ileocecal valve. There was transillumination of light deep in the right lower quadrant. The entire cecum and ileocecal valve appeared normal. The scope was slowly withdrawn assessing all mucosal surfaces carefully. Preparation was excellent. The anastomosis was noted between 40 and 50 cm. There were some small areas of ulceration on the edge of the anastomosis, but the anastomosis itself was quite patent and otherwise normal. Biopsies were obtained from the areas of ulceration. I do not think this represented any type of mass nor polyp. The remainder of the colon appeared normal without any sign of mass, polyps, colitis, nor angiodysplasia. There was a moderate amount of sigmoid diverticulosis. In the rectum, scope was retroflexed visualizing internal hemorrhoids, but no other pathology. The rectal mucosa appeared normal. The scope was straightened out and withdrawn from the patient. He tolerated the procedure well and was returned to recovery area in stable condition. IMPRESSION: 1. Some ulcerations around anastomosis, status post biopsy. 2. Diverticulosis. 3. Internal hemorrhoids. PLAN: The results of biopsy will be checked. I would recommend a repeat colonoscopy in 1 year for further screening and surveillance given his previous history of colon cancer and tubular adenomas. MD CHAPITO Carney/MORTEZA / [phone]
== END 2020-11-17 11:58 | disposition home or self-care (01) ==
PROVIDERS: PCP Internal Medicine; Visit Provider Internal Medicine
PROC: 0DJD8ZZ Inspection of Lower Intestinal Tract, Via Natural or Artificial Opening Endoscopic (ICD-10-PCS; CPT 45378; principal; 2020-11-17 09:10)
DX: Z12.11 Encounter for screening for malignant neoplasm of colon (principal); K28.9 Gastrojejunal ulcer, unspecified as acute or chronic, without hemorrhage or perforation; K57.30 Diverticulosis of large intestine without perforation or abscess without bleeding; K64.8 Other hemorrhoids; Z85.038 Personal history of other malignant neoplasm of large intestine; Z86.010 Personal history of colon polyps; Z98.0 Intestinal bypass and anastomosis status
CPT/HCPCS: 45380; 88305

== ENCOUNTER 2020-11-18 15:16 | Outpatient (REF) | payer MEDICARE, SELFPAY ==
--- NOTE | ~2020-11-18 | PE_ITS ---
EXAMINATION: PET/CT FUSION SKULL TO THIGH CLINICAL INFORMATION: Adenocarcinoma colon for restaging. COMPARISON: CT abdomen and pelvis 07/08/2020, PET/CT 04/15/2020. TECHNIQUE: Following intravenous administration of 19 mCi of F-18 FDG in the left antecubital vein, whole-body emission scan was obtained from skull base to the proximal thighs approximately 50 minutes later. 3.[address] axial transmission scan was obtained for correlative imaging without oral or IV contrast. Fingerstick baseline glucose measures 74 mg/dl. Radiation dose DLP: 740 mGy-cm. FINDINGS: SKULL BASE AND NECK: There is no abnormal metabolic activity seen in the skull base or neck. Nonspecific metabolic activity seen in the soft palate and base of the tongue with an SUV measuring 4.2 and along larynx in the aryepiglottic folds with an SUV measuring 5.64. There is no CT abnormality seen along the soft palate or the larynx. CHEST: There is no abnormal metabolic activity seen in the chest, especially in the left lower lobe pulmonary nodule. The CT is nondiagnostic secondary to respiration artifact. Previously seen 1 cm nodule left lower lobe now measures 7 mm. No abnormal metabolic activity seen in the rest of the lung parenchyma or the mediastinum. The heart size is enlarged. ABDOMEN AND PELVIS: There is mild metabolic activity seen in the left upper quadrant in the area of previous colonic surgery and anastomosis with an SUV measurement of 2.5 similar to background. No additional areas of abnormal metabolic activity seen. Normal physiological activity seen in the kidneys, ureters and the bladder. On CT imaging, the visualized liver, spleen, pancreas and bilateral adrenal glands are unremarkable. There are no radiopaque gallbladder or renal calculi or hydronephrosis. Postsurgical anastomotic changes left colon are noted. There is mild constipation. No retroperitoneal lymph nodes or mass seen. There is left paraumbilical hernia containing a loop of small bowel. No abnormal retroperitoneal, mesenteric or pelvic lymph nodes seen. MSK: No abnormal skeletal metabolic activity seen. PET/PET CT fusion skull to thigh IMPRESSION: No abnormal metabolic activity seen in left lung nodule. In fact on CT, previously seen left lower lobe nodule is 7 mm and more suggestive of focal atelectasis on slice 189/2, the CT is suboptimal due to breathing artifact and suboptimal resolution. Refer to previous CT chest exam. Nonspecific metabolic activity seen in posterior soft palate and base of the tongue. No corresponding CT abnormality seen. Nonspecific metabolic activity along the aryepiglottic folds and the larynx but no abnormality seen on CT. This area could be easily visualized by direct visualization/scopy or CT neck exam.
== END 2020-11-18 15:17 | disposition home or self-care (01) ==
LOC: HO.PET 15:16
PROVIDERS: Visit Provider Internal Medicine
DX: Z13.89 Encounter for screening for other disorder (principal)

== ENCOUNTER 2021-03-02 07:26 | Day surgery (SDC) | payer MEDICARE, SELFPAY ==
--- NOTE | 2021-02-27 09:28 | P.CONAN_ITS ---
Documented by User: Rachelle Rodríguez NP 02/27/21 09:35 HPI - Anesthesia Eval Consult details Narrative: 71yo M for Umbilical Incisional Hernia Repair s/p [place] with MAC 11/2020 [facility] Active Problems Active Problems: All Active Problems (Updated 02/24/21 @ 16:44 by Graciela Benoit, GORGE) Colon adenocarcinoma (Chronic) Acute appendicitis with appendiceal abscess (Acute) Metastatic malignant neoplasm to prostate (Acute) S/P appendectomy (Acute) Incisional hernia (Acute) Past Medical History Medical History Acute appendicitis with appendiceal abscess Bowel cancer Colon cancer Colon polyps History of bradycardia [place] (hard of hearing) MA[place] (obstructive sleep apnea) Prostate CA Pulmonary nodule Seasonal allergies Skin cancer of face Family History Family History Father Heart attack Breast CA Sister Heart attack Sister Breast CA Ovarian ca Mother Medical history unknown Surgical History Surgical History H/O arthroscopic knee surgery History of ankle surgery History of cataract surgery History of exploratory laparotomy History of inguinal hernia repair History of left hemicolectomy Hx of colonoscopy Hx of prostatectomy Hx of tonsillectomy Hx of tooth extraction Social History Social History Household Members: Spouse Housing: House Are you a primary critical care physician to a significant other at home: No Do you presently have visiting nurse or other home services: No Alcohol intake: current Alcohol intake frequency: a few times a week Alcohol type: beer Patient Tobacco Use Status: Former Tobacco user Quit Date: 40+ yrs ago Tobacco use type: Cigarette Second Hand Smoke Exposure: No Use of substances other than those prescribed or required for medical reasons: No Are you DNR?: No Advance Directives: Yes Advance Directives on File: Yes Advance Directives Date on File: 03/02/21 service: No Current occupational status: retired Meds Allergies Allergy/AdvReac Type Severity Reaction Status Date / Time Seasonal Allergies Allergy Nasal Verified 03/02/21 08:17 congestion Home Medications Medication Instructions Recorded Confirmed Last Taken Type cholecalciferol (vitamin D3) 25 25 mcg PO DAILY 03/18/20 02/24/21 Unknown History mcg (1,000 unit) capsule multivitamin 1 tab PO DAILY 03/18/20 02/24/21 Unknown History vitamin B12 0.5 mg-folic acid 1 mg 1 tab PO DAILY 07/01/20 02/24/21 Unknown History tablet leuprolide (3 month) 11.25 mg (3 11.25 mg IM [id number] 11/12/20 02/24/21 Unknown History month) intramuscular syringe kit (Lupron Depot) Exam Exam Date and Time: February 27, [id number] Pertinent Lab Results Pertinent Lab Results: Laboratory Tests 02/04/21 02/04/21 09:20 09:20 WBC 5.5 Hgb 11.7 L Hct 34.8 L Plt Count 195 Sodium 141 Potassium 4.6 Chloride 106 Carbon Dioxide 27 BUN 26 H Creatinine 1.18 Assessment and Plan Assessment Anesthesia Assessment: Chart Reviewed Documented by User: Antoni Hernandez MD 03/02/21 08:56 PMFSH Past Medical History Medical History Acute appendicitis with appendiceal abscess Bowel cancer Colon cancer Colon polyps History of bradycardia [place] (hard of hearing) [place] (obstructive sleep apnea) Prostate CA Pulmonary nodule Seasonal allergies Skin cancer of face Family History Family History Father Heart attack Breast CA Sister Heart attack Sister Breast CA Ovarian ca Mother Medical history unknown Family history of problems with anesthesia: No Surgical History Surgical History H/O arthroscopic knee surgery History of ankle surgery History of cataract surgery History of exploratory laparotomy History of inguinal hernia repair History of left hemicolectomy Hx of colonoscopy Hx of prostatectomy Hx of tonsillectomy Hx of tooth extraction History of Problems with Anesthesia: No Social History Social History Household Members: Spouse Housing: House Are you a primary critical care physician to a significant other at home: No Do you presently have visiting nurse or other home services: No Alcohol intake: current Alcohol intake frequency: a few times a week Alcohol type: beer Patient Tobacco Use Status: Former Tobacco user Quit Date: 40+ yrs ago Tobacco use type: Cigarette Second Hand Smoke Exposure: No Use of substances other than those prescribed or required for medical reasons: No Are you DNR?: No Advance Directives: Yes Advance Directives on File: Yes Advance Directives Date on File: 03/02/21 service: No Current occupational status: retired [employer] Allergies Allergy/AdvReac Type Severity Reaction Status Date / Time Seasonal Allergies Allergy Nasal Verified 03/02/21 08:17 congestion Home Medications Medication Instructions Recorded Confirmed Last Taken Type cholecalciferol (vitamin D3) 25 25 mcg PO DAILY 03/18/20 02/24/21 Unknown History mcg (1,000 unit) capsule multivitamin 1 tab PO DAILY 03/18/20 02/24/21 Unknown History vitamin B12 0.5 mg-folic acid 1 mg 1 tab PO DAILY 07/01/20 02/24/21 Unknown History tablet leuprolide (3 month) 11.25 mg (3 11.25 mg IM [id number] 11/12/20 02/24/21 Unknown History month) intramuscular syringe kit (Lupron Depot) Exam Airway Mallampati Class: I TM Dist: >3cm Neck ROM: Full Loose/Missing/Broken Teeth: No Heart: ok Lungs: ok Assessment and Plan Final Anesthetic Review Family History of Problems with Anesthesia: No History of Problems with Anesthesia: No NPO: Yes ASA Class: III Final Preanesthetic Review: No Changes in Pt Med Stat, Meds/Allgs Chart Reviewed, Consent Obtained/Reviewed and Anes Risks/Benef Reviewed Patient Risk: Intermediate Procedure Risk: Low Anesthetic Plan Anesthetic Plan: GA and Agree w/ Assess. and Plan Disposition: Standard PACU
[2021-03-02] VITALS (8 sets, daily range): BP systolic 138–172; BP diastolic 62–92; PULSE 41–57; RESP 14–18; TEMP 36.1–36.4; O2SAT 97–100; BMI 28.1
[2021-03-02] MEDS: Lactated Ringers 1,000 ML 100 ML IVCONT (08:25)
--- NOTE | 2021-03-02 08:55 | MHC.SHP ---
Pre-Procedural Eval Section A Date of Service: 03/02/21 The patient is an INPATIENT: No Changes since office visit: Yes Patient answered all questions; No Cold of Flu in the past 2 weeks, No New Medical Problems and No Changes in Medication The History & Physical has been completed within 30 days and I have reviewed it.: Yes Section B Chief Complaint: Incisional Hernia Allergies: Allergies Allergy/AdvReac Type Severity Reaction Status Date / Time Seasonal Allergies Allergy Nasal Verified 03/02/21 08:17 congestion Plan Diagnosis/Plan: Unchanged I have reviewed the history and physical and performed a pertinent physical examination on my patient. No changes have occurred unless specified.
--- NOTE | 2021-03-02 10:39 | P.OP_ITS ---
Operative Note Operative Note Date of Service: 03/02/21 Narrative: Preoperative diagnosis:Incisional Hernia Postoperative diagnosis:same Procedure:Repair of Incisional hernia with mesh Surgeon: Rony Joyner MD Media Senior Recruiter: No physician Anesthesia:General LMA Indications for procedure: 71 year old male patient presenting with complaints of a lump around the Umbilicus associated with a previous abdominal surgery. Operative findings: Incisional hernia in the periumbilical region extending above the umbilicus Specimen: hernia sac Estimated blood loss: 10 mL Complications: none Procedure details: Patient was brought to the OR placed in a supine position. After administering general anesthesia the patient's abdomen was prepped with ChloraPrep and draped in a sterile fashion. surgical time-out was called and the consent confirmed. Patient received preoperative antibiotics and Venodyne boots were in place. Local anesthesia consisting of 0.5% Sensorcaine plain was infiltrated in the periumbilical region. A curvilinear incision was made around the umbilicus in the midline carried out through subcutaneous tissue up to the hernia sac. The hernia sac was then sharply dissected from the umbilical skin and surrounding subcutaneous tissue. The sac was then dissected down to the fascial edge. The fascia was then dissected circumferentially. The redundant sac was then excised and sent to pathology as a specimen. Peritoneum was then closed using a running 0 Polysorb suture. A large preperitoneal space was then created circumferentially around the fascial defect. An 8 cm round Ventralex mesh was then obtained. This was then deployed into the preperitoneal space. The mesh was then secured in 4 quadrants using a 1 Tycron suture. Fascia was then closed over the mesh incorporating the closure in the mesh using [id number] 1 Tycron sutures. Wounds were then irrigated with saline solution and suctioned dry. Additional local was infiltrated in the muscular and subcutaneous tissue. Umbilical skin was reattached to the fascia using a 3-0 Polysorb suture. Subcutaneous tissue and dermis were then reapproximated using interrupted 3-0 Polysorb sutures. Skin was then closed using a running subcuticular 4-0 Polysorb suture. Sterile dressings consisting of Steri-Strips 2 x 2 gauze and Tegaderm were then applied. The patient tolerated the procedure well. Sponge, instrument, needle counts reported as correct. Patient was transferred to PACU in stable condition.
[2021-03-02] MEDS: Acetaminophen 325 MG TABLET 650 MG PO (10:53)
[2021-03-02] MEDS: oxyCODONE HCl Immed Release 5 MG TABLET PO (10:54)
== END 2021-03-02 12:45 | disposition home or self-care (01) ==
PROVIDERS: PCP Internal Medicine; Visit Provider Surgery
PROC: (CPT 49560; principal; 2021-03-02 09:10)
DX: K43.2 Incisional hernia without obstruction or gangrene (principal)
CPT/HCPCS: 49560; 88302; C1781; J0690; J3010

== ENCOUNTER → 2021-03-10 14:33 | Outpatient (BNVA) | payer MEDICARE, SELFPAY | PROVIDERS: PCP Internal Medicine; Referring Provider Internal Medicine; Visit Provider Surgery | DX: Z48.815 Encounter for surgical aftercare following surgery on the digestive system (principal); Z87.19 Personal history of other diseases of the digestive system | CPT/HCPCS: 99212 ==

== ENCOUNTER → 2021-04-17 09:46 | Outpatient (REF) | payer MEDICARE, SELFPAY ==
--- NOTE | ~2021-04-17 | NM_ITS ---
EXAMINATION: NM BONE SCAN OF THE WHOLE BODY CLINICAL INFORMATION: Staging prostate cancer. Patient states low back pain, arthritis left hand index finger and right knee. Prostatectomy August,. Fracture left ankle July 2017 and also history of colon cancer and lung cancer metastases. COMPARISON: The previous study dated 07/13/2010 is available for comparison. TECHNIQUE: Multiple gamma scintillation camera images of the whole body were performed 3.75 hours following the intravenous administration of 36 mCi Tc-99m MDP. FINDINGS: In the head, there is a small focus of mildly increased activity in the left side of the mandible, likely due to dental disease. In the thoracic cage and upper extremities, there is moderately increased activity in the right sternoclavicular joint and mildly increased activity in the acromioclavicular joints bilaterally. Some residual radiopharmaceutical at the injection site in the left antecubital fossa is noted. In the spine, there is a minimal thoracolumbar scoliosis with lumbar convexity to the left. There is mildly increased activity in the left posterior elements of the mid cervical spine, likely due to facet arthropathy. In the pelvis, no significant abnormalities are present. In the lower extremities, there is a small focus of mildly increased activity in the left ankle. A very faint focus of increased activity visualized on the right lateral view of the distal right lower extremity in the posterior plantar surface of the calcaneus is likely due to a mild plantar fascia its. No other definite bony abnormalities are noted. The urinary bladder and faint visualization of both kidneys are noted. Compared to the previous study dated 07/13/2010, the abnormalities in the acromioclavicular joints bilaterally and the right sternoclavicular joint are new. The left ankle abnormalities are also new. Remainder the scan is unchanged. VA/VA bone scan whole body IMPRESSION: A few mild nonspecific abnormalities are noted as described above and these are all likely arthritic or traumatic in etiology. None of these abnormalities is strongly suspicious for metastatic disease.
== END ==
LOC: HO.NUCMED 09:46
PROVIDERS: PCP Internal Medicine; Visit Provider Internal Medicine
DX: C79.82 Secondary malignant neoplasm of genital organs (principal)
CPT/HCPCS: 78306; A9503

== ENCOUNTER 2021-12-22 09:04 | Outpatient (REF) | payer MEDICARE, SELFPAY ==
--- NOTE | ~2021-12-22 | PE_ITS ---
EXAMINATION: Fluorine-18 FDG PET/CT Scan CLINICAL INDICATION: Subsequent treatment management. Metastatic prostate cancer on treatment. Personal history of adenocarcinoma of colon. PROCEDURE: 54 minutes following the intravenous administration of 16.3 mCi of fluorine 18 FDG, images from the base of the skull to the mid thighs were obtained using a combined PET/CT scanner with CT scan based attenuation correction. No intravenous contrast was administered. Transverse, coronal, sagittal, and volume reconstruction projections were obtained. The patient's blood glucose as determined by a finger stick, was 95 mg/dl immediately prior to injection. The radiotracer was injected through the left antecubital superficial vein, without any complication. Total CT exam dose-length product 858.01 mGy-cm * These CT images were obtained using dose optimization techniques as appropriate, variously including the following: Automated exposure control * Adjustment of mA and/or kV according to patient size (this includes techniques or standardized protocols for targeted exams where dose is matched to indication/reason for exam; i.e. extremities or head) * Use of iterative reconstruction technique COMPARISON: Prior PET CT study done on 11/18/2020 FINDINGS: NECK AND VISUALIZED HEAD: No metabolically active disease is present. THORAX: No metabolically active disease is present. No suspicious lung nodule and/or mass is seen. Linear opacity is noted at left lower lobe of the lung (202:102), without any concordant increased metabolic activity, may represent atelectatic changes, new since prior study. ABDOMEN AND PELVIS: No metabolically active disease is present. Physically, no evidence of any focal liver lesion identified. At the site of the prior surgical resection of the large bowel, around the splenic flexure, no abnormal metabolic activity is present. No metabolically active lymphadenopathy present. Incidental note is made of fat only containing infrarenal umbilical anterior abdominal wall hernias. MUSCULOSKELETAL: No suspicious focal osseous lesion or metabolically active disease. VASCULAR: Diffuse atherosclerotic disease of the aorta and is branches including coronary arterial calcifications are present. PET/PET CT fusion skull to thigh IMPRESSION: No metabolically active disease is identified. Specifically, no evidence of any metastatic disease is identified within the visualized head and neck, chest, abdomen and pelvis. Given the patient's history of prostate cancer, follow-up F-[address] scan may be considered, if clinically appropriate, for further clarification.
== END 2021-12-22 09:05 | disposition home or self-care (01) ==
LOC: HO.PET 09:04
PROVIDERS: PCP Internal Medicine; Visit Provider Internal Medicine
DX: Z13.89 Encounter for screening for other disorder (principal)

== ENCOUNTER 2022-03-29 09:20 | Day surgery (SDC) | payer MEDICARE, SELFPAY ==
--- NOTE | 2022-03-26 10:03 | HO.ANESPROP2 ---
Documented by User: Rachelle Rodríguez NP 03/26/22 10:06 HPI - Anesthesia Eval Consult details Narrative: 72yo M for Colonoscopy s/p Umbilical hernia repair 02/2021 with GA-LMA 4 PMFSH Active Problems Active Problems: All Active Problems (Updated 09/17/21 @ 08:20 by Deloris Howard MD) Encounter for initial annual wellness visit (AWV) in Medicare patient (Acute) Colon adenocarcinoma (Chronic) Acute appendicitis with appendiceal abscess (Acute) Metastatic malignant neoplasm to prostate (Acute) S/P appendectomy (Acute) Incisional hernia (Acute) Past Medical History Medical History (Updated 03/29/22 @ 10:26 by Clotilde Bautista MD) Acute appendicitis with appendiceal abscess Bowel cancer Colon cancer Colon polyps History of bradycardia AKHIOK (hard of hearing) MAIK (obstructive sleep apnea) Prostate CA Pulmonary nodule Seasonal allergies Skin cancer of face Family History Family History Father Heart attack Breast CA Sister Heart attack Sister Breast CA Ovarian ca Mother Medical history unknown Family history of problems with anesthesia: No Surgical History Surgical History H/O arthroscopic knee surgery History of ankle surgery History of cataract surgery History of exploratory laparotomy History of inguinal hernia repair History of left hemicolectomy Hx of colonoscopy Hx of prostatectomy Hx of tonsillectomy Hx of tooth extraction History of Problems with Anesthesia: No Social History Social History Household Members: Spouse Housing: House Are you a primary career consultant to a significant other at home: No Do you presently have visiting nurse or other home services: No Alcohol intake: current Alcohol intake frequency: holidays/special occasions only Alcohol type: beer Patient Tobacco Use Status: Former Tobacco user Quit Date: 40+ yrs ago Tobacco use type: Cigarette Second Hand Smoke Exposure: No Use of substances other than those prescribed or required for medical reasons: No Are you DNR?: No Advance Directives: No Advance Directives Information Provided: Yes Advance Directives on File: Yes Advance Directives Date on File: 03/02/21 service: Yes Current occupational status: retired Meds Allergies Allergy/AdvReac Type Severity Reaction Status Date / Time Seasonal Allergies Allergy Nasal Verified 11/18/21 08:25 congestion naproxen [From Aleve] AdvReac Rash Verified 11/18/21 08:25 Home Medications Medication Instructions Recorded Confirmed Last Taken Type cholecalciferol (vitamin D3) 25 25 mcg PO DAILY 03/18/20 01/20/22 Unknown History mcg (1,000 unit) capsule multivitamin 1 tab PO DAILY 03/18/20 01/20/22 Unknown History vitamin B12 0.5 mg-folic acid 1 mg 1 tab PO DAILY 07/01/20 01/20/22 Unknown History tablet leuprolide (3 month) 11.25 mg (3 11.25 mg IM [id number] 11/12/20 01/20/22 Unknown History month) intramuscular syringe kit (Lupron Depot) ascorbic acid (vitamin C) 500 mg 500 mg PO DAILY 05/06/21 01/20/22 Unknown History tablet (Vitamin C) magnesium 500 mg tablet 15 mg PO DAILY 05/06/21 01/20/22 Unknown History zinc 50 mg tablet 50 mg PO ONCE 11/18/21 01/20/22 Unknown History Exam Exam Date and Time: March 26, 2022 1003 Pertinent Lab Results Pertinent Lab Results: Laboratory Tests 01/20/22 01/20/22 08:53 08:53 WBC 6.4 Hgb 11.7 L Hct 35.9 L Plt Count 195 Sodium 142 Potassium 4.9 Chloride 110 H Carbon Dioxide 25 BUN 28 H Creatinine 1.18 Assessment and Plan Assessment Anesthesia Assessment: Chart Reviewed Final Anesthetic Review Family History of Problems with Anesthesia: No History of Problems with Anesthesia: No Documented by User: Clotilde Bautista MD 03/29/22 10:41 [facility] Past Medical History Medical History (Updated 03/29/22 @ 10:26 by Clotilde Bautista MD) Acute appendicitis with appendiceal abscess Bowel cancer Colon cancer Colon polyps History of bradycardia AKHIOK (hard of hearing) MAIK (obstructive sleep apnea) Prostate CA Pulmonary nodule Seasonal allergies Skin cancer of face Family History Family History Father Heart attack Breast CA Sister Heart attack Sister Breast CA Ovarian ca Mother Medical history unknown Surgical History Surgical History H/O arthroscopic knee surgery History of ankle surgery History of cataract surgery History of exploratory laparotomy History of inguinal hernia repair History of left hemicolectomy Hx of colonoscopy Hx of prostatectomy Hx of tonsillectomy Hx of tooth extraction Social History Social History Household Members: Spouse Housing: House Are you a primary career consultant to a significant other at home: No Do you presently have visiting nurse or other home services: No Alcohol intake: current Alcohol intake frequency: holidays/special occasions only Alcohol type: beer Patient Tobacco Use Status: Former Tobacco user Quit Date: 40+ yrs ago Tobacco use type: Cigarette Second Hand Smoke Exposure: No Use of substances other than those prescribed or required for medical reasons: No Are you DNR?: No Advance Directives: No Advance Directives Information Provided: Yes Advance Directives on File: Yes Advance Directives Date on File: 03/02/21 service: Yes Current occupational status: retired Meds Allergies Allergy/AdvReac Type Severity Reaction Status Date / Time Seasonal Allergies Allergy Nasal Verified 11/18/21 08:25 congestion naproxen [From Aleve] AdvReac Rash Verified 11/18/21 08:25 Home Medications Medication Instructions Recorded Confirmed Last Taken Type cholecalciferol (vitamin D3) 25 25 mcg PO DAILY 03/18/20 01/20/22 Unknown History mcg (1,000 unit) capsule multivitamin 1 tab PO DAILY 03/18/20 01/20/22 Unknown History vitamin B12 0.5 mg-folic acid 1 mg 1 tab PO DAILY 07/01/20 01/20/22 Unknown History tablet leuprolide (3 month) 11.25 mg (3 11.25 mg IM [id number] 11/12/20 01/20/22 Unknown History month) intramuscular syringe kit (Lupron Depot) ascorbic acid (vitamin C) 500 mg 500 mg PO DAILY 05/06/21 01/20/22 Unknown History tablet (Vitamin C) magnesium 500 mg tablet 15 mg PO DAILY 05/06/21 01/20/22 Unknown History zinc 50 mg tablet 50 mg PO ONCE 11/18/21 01/20/22 Unknown History Exam Height,Weight and Vital Signs: Height 6 ft 3 in Weight 96.615 kg Vital Signs Temp Pulse Resp BP Pulse Ox O2 Del Method 03/29/22 09:43 97.0 F 55 18 161/69 H 98 Room Air Airway Mallampati Class: II TM Dist: >3cm Neck ROM: Full Loose/Missing/Broken Teeth: No (Denies broken or loose teeth ) Heart: RRR Lungs: CTAB Assessment and Plan Assessment Anesthesia Assessment: Anesthesia Plan Discussed Final Anesthetic Review NPO: Yes ASA Class: III Final Preanesthetic Review: No Changes in Pt Med Stat, Meds/Allgs Chart Reviewed, Consent Obtained/Reviewed and Anes Risks/Benef Reviewed Patient Risk: Intermediate Procedure Risk: Low Assessment/Block/Sedation in SS: Assess/Block/Sedation-SS Anesthetic Plan Anesthetic Plan: MAC: Disposition: Standard PACU
[2022-03-29 09:30] VITALS: BMI 26.6
[2022-03-29 09:43] VITALS: BP 161/69; PULSE 55; RESP 18; TEMP 36.1; O2SAT 98
[2022-03-29] MEDS: Lactated Ringers 1,000 ML 100 ML IVCONT (09:45)
[2022-03-29 11:33] VITALS: BP 137/59; PULSE 53; RESP 16; TEMP 36.6; O2SAT 98
--- NOTE | 2022-03-29 11:35 | PM.OP ---
Brief Operative Note Date of Service: 03/29/22 Pre-op diagnosis: Screening Post-op diagnosis: other (Colon polyp) Procedure: Colonoscopy to the cecum with hot snare polypectomy x 1 Surgeon: Rickie Lira Anesthesia: MAC Was an Streaming Media Specialist used for this Procedure?: No Estimated blood loss (mL): 0 Pathology: other (A. Transverse colon polyp) Condition: stable Disposition: PACU
[2022-03-29 11:48] VITALS: BP 154/73; PULSE 48; RESP 16; O2SAT 100
[2022-03-29 12:03] VITALS: BP 169/60; PULSE 48; RESP 16; TEMP 36.6; O2SAT 100
--- NOTE | 2022-03-30 01:10 | OP_ITS ---
SURGEON: Rickie Lira MD INDICATIONS: The patient presents for followup of personal history of colon cancer, personal history of tubular adenoma of the colon, and need for colorectal cancer screening. Full consent has been obtained from him for this, including risks of bleeding and perforation. PREOPERATIVE DIAGNOSIS: POSTOPERATIVE DIAGNOSIS: PROCEDURE PERFORMED: Colonoscopy to the cecum with hot snare polypectomy. ESTIMATED BLOOD LOSS: COMPLICATIONS: ANESTHESIA: Monitored anesthesia care. ASSISTANTS: SPECIMENS: PREOPERATIVE DIAGNOSES: Personal history of colon cancer, personal history of tubular adenoma of the colon, and colorectal cancer screening. POSTOPERATIVE DIAGNOSES: Personal history of colon cancer, personal history of tubular adenoma of the colon, and colorectal cancer screening, colon polyp, internal hemorrhoids. DESCRIPTION OF PROCEDURE: The patient was placed in the left lateral decubitus position. The digital rectal exam revealed no abnormalities. The Olympus video pediatric colonoscope was entered into the rectum and advanced to the cecum with the assistance of abdominal wall pressure. Once in the cecum, I did identify normal-appearing cecal pouch with appendiceal orifice and a normal-appearing ileocecal valve. There was transillumination of light deep in the right lower quadrant. The scope was slowly withdrawn assessing all mucosal surfaces carefully. Preparation was excellent. In the transverse colon was an approximately 8 to 10 mm polyp, which was removed by hot snare polypectomy and recovered by suction. The polypectomy site appeared clean, without any sign of residual polyp nor bleeding. I did not visualize any other polyps, colitis, or angiodysplasia. The anastomosis was seen at 50 cm. There were some small areas of inflammation and erosions on the anastomosis, but no mass nor polyp. There was no stricture. The anastomosis was widely patent. I did not visualize any other polyps, colitis, or angiodysplasia. In the rectum, scope was retroflexed visualizing internal hemorrhoids, but no other pathology. The rectal mucosa appeared normal. The scope was straightened and withdrawn from the patient. He tolerated the procedure well and was returned to recovery area in stable condition. IMPRESSION: 1. Colon polyp. 2. Internal hemorrhoids. PLAN: The results of the pathology will be checked. Given his history, I would recommend a followup colonoscopy in 2 years for further screening. He was advised not to use any aspirin or NSAIDs for 1 week. He will otherwise see me on a p.r.n. basis. MD CHAPITO Carney/MORTEZA / [id number] NICKY
== END 2022-03-29 13:13 | disposition home or self-care (01) ==
PROVIDERS: PCP Internal Medicine; Visit Provider Internal Medicine
PROC: 0DJD8ZZ Inspection of Lower Intestinal Tract, Via Natural or Artificial Opening Endoscopic (ICD-10-PCS; CPT 45378; principal; 2022-03-29 10:30)
DX: Z12.11 Encounter for screening for malignant neoplasm of colon (principal); Z85.038 Personal history of other malignant neoplasm of large intestine; Z86.010 Personal history of colon polyps; D12.3 Benign neoplasm of transverse colon; K64.8 Other hemorrhoids; Z90.49 Acquired absence of other specified parts of digestive tract; Z98.0 Intestinal bypass and anastomosis status; Z90.79 Acquired absence of other genital organ(s); Z85.46 Personal history of malignant neoplasm of prostate; Z79.899 Other long term (current) drug therapy; Z88.8 Allergy status to other drugs, medicaments and biological substances; Z87.891 Personal history of nicotine dependence
CPT/HCPCS: 45385; 88305

== ENCOUNTER → 2022-10-13 08:14 | Outpatient (BNVA) | payer MEDICARE, SELFPAY | PROVIDERS: PCP Internal Medicine; Referring Provider Internal Medicine; Visit Provider Internal Medicine Cardiovascular Disease | DX: R00.1 Bradycardia, unspecified (principal) | CPT/HCPCS: 93005; 99202 ==

== ENCOUNTER → 2022-11-11 08:52 | Outpatient (REF) | payer MEDICARE, SELFPAY ==
--- NOTE | 2022-11-11 09:04 | HM_ITS ---
* Total monitoring time about 15 days. * Underlying rhythm is sinus. Average ventricular rate 62/Min. Range 37 to 108/Min. * About 48% the time, rate less than 60/Min. * Occasional supraventricular ectopy but low burden. Short runs but nothing sustained. * Occasional ventricular ectopy, minimal burden. 2 short runs, longest 4 beats. * No significant pauses or AV blocks. * Lightheadedness in diary associated with sinus rhythm. Feeling groggy associated with sinus rhythm and short run of supraventricular ectopy. MTDD
--- NOTE | 2022-11-11 09:04 | CA_ITS ---
Transthoracic Echocardiogram Patient (Last, First, Middle): Jonas Tony J Gender: Male Date of : 1950 Age: 72 Procedure Date: 11/11/2022 Procedure Type: Transthoracic Echocardiogram Location: OP Height: 190.5 cm Weight: 106.14 kg BSA: 2.35 m2 Heart Rate: 50 bpm BP: 145 / 70 mmHg Scow Derrick Operator: RAO Referring MD: Bennie Downs MD Zinc Etcher: Bennie Downs MD Symptoms: R00.1 - Bradycardia, unspecified Study Quality: Adequate ECG Rhythm: Bradycardia Conclusions: - 1. Normal LV systolic function with grade 1 diastolic dysfunction 2. Trivial aortic regurgitation 3. Normal RV systolic pressure 4. Upper limits of normal ascending aortic size 5. No gross pericardial effusion Findings Left Ventricle Normal left ventricular size, thickness, and systolic function. The visually estimated ejection fraction is between 60-65%. Spectral Doppler is indicative of an impaired relaxation filling pattern. E/E prime ratio is <8, consistent with normal filling pressures. Evidence suggests grade I (mild) diastolic dysfunction. Peak GLS is -18.2%, within normal limits. Right Ventricle Normal right ventricular cavity size and systolic function. Atria The left atrium is likely dilated. There is no evidence of interatrial shunt. The right atrium is normal in size. Aortic Valve Normal aortic valve structure and function. There is no aortic valve stenosis. There is trace (trivial) aortic valve regurgitation. Mitral Valve Normal mitral valve structure and function. There is trace mitral valve regurgitation. There is no mitral valve stenosis. Pulmonic Valve The pulmonic valve is likely normal. Tricuspid Valve Normal tricuspid valve structure. There is trace tricuspid valve regurgitation. The right ventricular systolic pressure is normal. The right ventricular systolic pressure is 28 mmHg. Normal right atrial pressure. There is no evidence of pulmonary hypertension. Great Vessels The pulmonary artery was not well visualized. Venous The inferior vena cava is normal in size and collapses greater than 50% with inspiration. Pericardium/Pleural There is no evidence of pericardial effusion. Prior Study Comparison No prior study available for comparison. Measurements 2D Linear Measurements IVSd: 1.10 0.6-0.9/0.6-1.0 cm LVIDd: 5.01 3.9-5.3/4.2-5.9 cm LVIDd Index: 2.13 2.4-3.2/2.2-3.1 cm/m2 LVIDs: 3.14 2.0-3.6 cm LVPWd: 0.99 0.7-1.1 cm LA Diam: 4.20 2.7-3.8/3.0-4.0 cm LAIDs Index: 1.79 1.5-2.3 cm/m2 LV Mass: 240.66 67-162/88-224 g LV Mass Index: 102.41 43-95/49-115 g/m2 LVOT Diam: 2.10 3.0+(-)1.3 cm 2D Systolic Function EF 4C: 56.10 >55% EF 2C: 71.00 >55% EF BiP: 64.00 >55% Mitral Valve MV Pk E: 0.46 MV PK A: 0.61 MV Decel Time: 501.00 E/A: 0.80 E'Lateral: 10.70 E'Medial: 5.43 E/E' Med: 8.50 E/E' Lat: 4.30 PHT: 147.00 MVA PHT: 1.50 Decel Toombs: 0.92 Aortic Valve AoV Pk Abran: 1.31 AoV Mn Abran: 0.81 AoV VTI: 0.30 AoV Pk Grad: 7.00 Aov Mn Grad: 3.00 JEFERSON Cont.VTI: 3.20 LVOT LVOT Pk Abran: 1.18 LVOT Mn Abran: 0.80 LVOT VTI: 0.28 LVOT Pk Grad: 6.00 LVOT Mn Grad: 3.00 LVOT Diam: 2.10 LVOT Area: 3.46 Diastolic Function MV Pk E: 0.46 MV Pk A: 0.61 E/A: 0.80 E'Medial: 5.43 E/E' Med: 8.50 E' Laterial: 10.70 E/E' Lat: 4.30 Right Ventricle TAPSE (mm): 25.40 TVS' Abran: 13.10 Tricuspid Valve TR Pk Abran: 2.51 TR Pk Grad: 25.00 RA Press: 3.00 RVSP: 28.00 Great Vessels Aorta Sinus of Valsalva: 3.70 2.0-3.5 cm Ao Asc: 3.70 2.1-3.4 cm Pulmonary Valve PV Pk Abran: 0.96 Peak PV Grad: 4.00 Updated in Other Vendor System with Status of Final Bennie Downs MD electronically signed on 11/11/2022 4:28:06 PM with status of Final
--- NOTE | 2022-11-11 09:04 | CA_ITS ---
Acquisition Time: 2022-11-11 09:59:34 Total Exercise Time: 00:03:59 Test Indications: Dyspnea Medications: SEE H Protocol: KENDY Max HR: 131 BPM 89% of Pred: 147 BPM Max BP: 188/072 mmHG Max Work Load: 5.7 METS Exercise stress test exercise 3 min 59 sec of Kendy protocol achieivng 88% MPHR, with moderate SOB, without chest discomfort, with isolated PVCs mostly in recovery, with resting hypertension, normotensive response to exercise, with normal chronotropic response, with borderline EKG changes noted, not meeting criteria for ischemia. Test reviewed with Dr. Bateman. Referred By: Bennie Downs Overread By: PRASHANT TRUJILLO
== END ==
LOC: HO.CARD 08:52
PROVIDERS: PCP Internal Medicine; Visit Provider Internal Medicine Cardiovascular Disease
DX: R00.1 Bradycardia, unspecified (principal)
CPT/HCPCS: 93017; 93246; 93306; 93356

== ENCOUNTER 2022-12-13 13:38 | Outpatient (AMB) | payer MEDICARE, SELFPAY ==
--- NOTE | 2022-12-13 13:43 | MHC.OFFVIS ---
Intake Vital Signs 12/13/22 13:44 Height 6 ft 3 in Weight 233 lb 11.04 oz BMI 29.2 BP 132/72 Blood Pressure Location Lt brachial Position Sitting Pulse 68 Intake Visit Reasons: f/up echo/ ett/ Intake Note: Follow-up after echo and ett Cluster Bore Operator Required: No Allergies Seasonal Allergies Allergy (Verified 10/29/22 09:22) Nasal congestion naproxen [From Aleve] Adverse Reaction (Verified 10/29/22 09:22) Rash Medication List - Last Reconciled 12/13/22 by Bennie Downs MD ascorbic acid (vitamin C) (Vitamin C) 500 mg PO DAILY bicalutamide 50 mg PO DAILY cholecalciferol (vitamin D3) 25 mcg PO DAILY leuprolide (3 month) (Lupron Depot) 11.25 mg IM [id number] magnesium 15 mg PO DAILY multivitamin 1 tab PO DAILY polysaccharide iron complex (EZFE 200) 200 mg PO DAILY vitamin [id number] acid 0.5-1 mg 1 tab PO DAILY zinc 50 mg PO QMONTH HPI HPI Comments History of Present Illness Details Edward comes for follow-up. Patient comes for follow-up of bradycardia and lightheadedness. With the symptoms lightheadedness on the Holter monitor did not have any significant pauses or conduction issues. Treadmill stress test had good chronotropic response however at low workload he had symptoms of shortness of breath. Echocardiogram shows normal LV systolic function. He continues to have symptoms of exertional shortness of breath. No orthopnea, PND, leg edema. PFSH Medical History Acute appendicitis with appendiceal abscess Bowel cancer Colon cancer Colon polyps History of bradycardia [place] (hard of hearing) MAIK (obstructive sleep apnea) Prostate CA Pulmonary nodule Seasonal allergies Skin cancer of face Surgical History H/O arthroscopic knee surgery History of ankle surgery History of cataract surgery History of exploratory laparotomy History of inguinal hernia repair History of left hemicolectomy Hx of colonoscopy Hx of prostatectomy Hx of tonsillectomy Hx of tooth extraction Family History Father Heart attack Breast CA Sister Heart attack Sister Breast CA Ovarian ca Mother Medical history unknown Social History Household Members: Spouse Housing: House Are you a primary care tech to a significant other at home: No Do you presently have visiting nurse or other home services: No Alcohol intake: current Alcohol intake frequency: holidays/special occasions only Alcohol type: beer Patient Tobacco Use Status: Former Tobacco user Quit Date: 40+ yrs ago Tobacco use type: Cigarette Second Hand Smoke Exposure: No Advance Directives Date on File: 03/02/21 service: Yes Current occupational status: retired Review of Systems Const Denies chills, Denies fatigue, Denies fever(s), Denies frequent falls, Denies weakness, Denies weight gain and Denies weight loss ENT Denies dizziness Card Denies chest pain, Denies leg edema, Denies lightheadedness, Denies palpitations, Denies dyspnea, Denies dyspnea on exertion, Denies orthopnea and Denies other (loss of consciousness) Resp Denies cough, Denies dyspnea and Denies dyspnea on exertion GI Denies hematochezia and Denies change in stool character Musc Denies abnormal gait, Denies muscle weakness, Denies numbness, Denies radiating pain into limb and Denies tingling Neuro Denies Abnormal speech present, Denies abnormal gait, Denies dizziness, Denies frequent falls, Denies numbness, Denies tingling and Denies weakness Endo Denies fatigue and Denies palpitations Physical Exam Vital Signs: Last Vital Signs Pulse 68 12/13/22 13:44 BP 132/72 12/13/22 13:44 BMI result Body Mass Index 29.2 Const General: cooperative, comfortable, no acute distress, alert, awake, Physically active and well groomed Nutritional Appearance: average body habitus Orientation/consciousness: patient oriented x3 Limitations: no limitations Neck Neck: Yes trachea midline, Yes supple and Yes no JVD Resp Effort & Inspection: normal respiratory effort Auscultation: clear to auscultation bilaterally Cardio Jugular venous distension: no JVD Palpation: normal PMI Rate: regular rate Rhythm: regular rhythm Heart sounds: S1 normal heart sound present, S2 normal heart sound present, no click, no gallops, no murmurs and no rubs Neuro General: patient oriented x3 and no focal motor deficits Speech: No Abnormal speech present Extrem General: Yes no clubbing, cyanosis or edema Assessment & Plan Assessment & Plan (1) Bradycardia: Code(s): R00.1 - Bradycardia, unspecified Plan: Patient with sinus bradycardia with frequent sinus bradycardia without any significant pauses or symptoms related to significant sinus bradycardia. Is good chronotropic competence with treadmill stress test but has reduced exercise capacity. Currently pacemaker placement is not indicated. Advised to call me with any new symptoms. Will follow-up in a year's time. Avoid rate lowering medications. (2) SOB (shortness of breath) on exertion: Code(s): R06.02 - Shortness of breath Plan: Exertional shortness of breath multiple risk factors including premature coronary artery disease and aging. He had suboptimal stress test with reduced exercise capacity. Would suggest him to undergo coronary CTA for evaluation of coronary artery disease. Further treatment based on the findings. Follow up in the clinic 1 year's time, sooner p.r.n.. Thank you for allowing me to partake in his care Coding Level of Care Code Est Pt Level 4 (47341) Diagnoses Bradycardia R00.1 SOB (shortness of breath) on exertion R06.02
[2022-12-13 13:44] VITALS: BP 132/72; PULSE 68; BMI 29.2
== END 2022-12-13 14:12 | disposition home or self-care (01) ==
PROVIDERS: Visit Provider Internal Medicine Cardiovascular Disease
DX: R00.1 Bradycardia, unspecified (principal); R06.02 Shortness of breath
CPT/HCPCS: 99214

== ENCOUNTER → 2022-12-13 13:38 | Outpatient (BNVA) | payer MEDICARE, SELFPAY | PROVIDERS: Visit Provider Internal Medicine Cardiovascular Disease | DX: R06.02 Shortness of breath (principal) | CPT/HCPCS: 99212 ==

== ENCOUNTER 2022-12-17 13:46 | Outpatient (AMB) | payer MEDICARE, SELFPAY ==
--- NOTE | 2022-12-17 13:48 | MHC.PC.OV ---
Vital Signs 12/17/22 13:49 Height 6 ft 3 in Weight 232 lb BMI 29.0 BP 120/70 Blood Pressure Location Lt brachial Position Sitting Pulse 53 Pulse Source Pulse Oximeter Pulse Oximetry (%) 96 Oxygen Delivery Method Room Air Intake Visit Reasons: Lump on right collarbone Intake Note: Patient is here today for lump on right collarbone. Ash Handler Required: No Edge Brusher: Not Required per policy Accompanied by: Self / Same As Patient Allergies Seasonal Allergies Allergy (Verified 12/17/22 13:49) Nasal congestion naproxen [From Aleve] Adverse Reaction (Verified 12/17/22 13:49) Rash Medication List - Last Reconciled 12/17/22 by Prbahu Heredia MD ascorbic acid (vitamin C) (Vitamin C) 500 mg PO DAILY bicalutamide 50 mg PO DAILY cholecalciferol (vitamin D3) 25 mcg PO DAILY leuprolide (3 month) (Lupron Depot) 11.25 mg IM [id number] magnesium 15 mg PO DAILY multivitamin 1 tab PO DAILY polysaccharide iron complex (EZFE 200) 200 mg PO DAILY vitamin L22-[id number] acid 0.5-1 mg 1 tab PO DAILY zinc 50 mg PO QMONTH Tobacco use date assessed: 12/17/22 Fall risk assessment: No Falls in past year Last assessed Fall Risk: 12/17/22 Dental Screening Dental Screen Date: 12/17/22 Did you have a dental visit in the last 12 months?: Yes Did you have a dental problem in the last 6 months where you did not have access to dental care?: No Was dental information given to patient?: Patient has dentist HPI Lump on right collarbone HPI Details concerned his right clavicle is more protruberent than usual PFSH Medical History Acute appendicitis with appendiceal abscess Bowel cancer Colon cancer Colon polyps History of bradycardia [place] (hard of hearing) MAIK (obstructive sleep apnea) Prostate CA Pulmonary nodule Seasonal allergies Skin cancer of face Surgical History H/O arthroscopic knee surgery History of ankle surgery History of cataract surgery History of exploratory laparotomy History of inguinal hernia repair History of left hemicolectomy Hx of colonoscopy Hx of prostatectomy Hx of tonsillectomy Hx of tooth extraction Family History Father Heart attack Breast CA Sister Heart attack Sister Breast CA Ovarian ca Mother Medical history unknown Social History Household Members: Spouse Housing: House Are you a primary prompt care rn to a significant other at home: No Do you presently have visiting nurse or other home services: No Alcohol intake: current Alcohol intake frequency: holidays/special occasions only Alcohol type: beer Patient Tobacco Use Status: Former Tobacco user Quit Date: 40+ yrs ago Tobacco use type: Cigarette e-Cigarette/Vaping Use: Never Used Second Hand Smoke Exposure: No Advance Directives Date on File: 03/02/21 service: Yes Current occupational status: retired Cognitive needs: No Hearing needs: No Vision needs: No Questionnaire Thrive Questionnaire Date Thrive assessed: 08/13/22 JIMMIE-7 AMB Questionnaire JIMMIE-7 Date JIMMIE - 7 assessed: 08/13/22 Source: Developed by Drs. Rickie Mederos, Aysha Conti, Ed Estrada and colleagues, with an educational keesha from [employer]. Review of Systems Const Denies chills, Denies headache(s) and Denies weight loss ENT Denies headache(s) Card Denies chest pain, Denies syncope, Denies irregular heart rhythm and Denies dyspnea Resp Denies chest congestion, Denies cough and Denies dyspnea GI Denies abdominal pain, Denies change in stool character, Denies nausea and Denies vomiting Musc Denies deformity and Denies joint swelling Neuro Denies syncope and Denies headache(s) Physical exam (Primary Care) Vital Signs: Last Vital Signs Pulse 53 12/17/22 13:49 BP 120/70 12/17/22 13:49 Pulse Ox 96 12/17/22 13:49 Oxygen Delivery Method Room Air 12/17/22 13:49 BMI result Body Mass Index 29.0 Tobacco/Smoking Status: Tobacco use Status Tobacco use date assessed 12/17/22 12/17/22 13:54 Patient Tobacco Use Status Former Tobacco user 12/17/22 13:54 Tobacco use type Cigarette 12/17/22 13:54 e-Cigarette/Vaping Use Never Used 12/17/22 13:54 Thrive Assessment: Date of Thrive Assessment Date Thrive assessed 08/13/22 12/17/22 13:54 Const General: cooperative, comfortable and no acute distress Neck Neck: Yes normal visual inspection Chest Chest palpation & inspection: normal inspection of the chest Resp Effort & Inspection: normal respiratory effort Assessment and Plan Assessment & Plan (1) Shoulder pain: Code(s): M25.519 - Pain in unspecified shoulder Plan: xr Orders: Orders XR shoulder RT min 2V Today M25.519 - Pain in unspecified shoulder Coding Level of Care Code Est Pt Level 3 (17002) Diagnoses Shoulder pain M25.519
[2022-12-17 13:49] VITALS: BP 120/70; PULSE 53; O2SAT 96; BMI 29.0
== END 2022-12-17 14:04 | disposition home or self-care (01) ==
PROVIDERS: PCP Internal Medicine; Visit Provider Internal Medicine
DX: M25.519 Pain in unspecified shoulder (principal)
CPT/HCPCS: 99213

== ENCOUNTER 2022-12-17 14:07 | Outpatient (REF) | payer MEDICARE, SELFPAY ==
--- NOTE | ~2022-12-17 | XR_ITS ---
EXAMINATION: XR SHOULDER, RIGHT CLINICAL INFORMATION: Pain in shoulder; right shoulder lump at sternal end of clavicle. COMPARISON: None available. TECHNIQUE: 4 views of the right shoulder. FINDINGS: No fracture. No dislocation. 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 No soft tissue abnormality. Visualized right lung is clear. XR/XR shoulder RT min 2V IMPRESSION: No acute osseous abnormality. 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
== END 2022-12-17 14:08 | disposition home or self-care (01) ==
LOC: HO.XRAY 14:07
PROVIDERS: PCP Internal Medicine; Visit Provider Internal Medicine
DX: M25.511 Pain in right shoulder (principal)
CPT/HCPCS: 73030

== ENCOUNTER 2023-02-08 07:27 | Outpatient (REF) | payer MEDICARE, SELFPAY ==
[2023-02-08 12:21] LABS: Anion Gap 9 (12-20); Blood Urea Nitrogen 30 mg/dL (9-16); Calcium 9.5 mg/dL (8.4-10.2); Carbon Dioxide 26 mmol/L (22-29); Chloride 112 mmol/L (96-108); Estimated Glomerular Filt Rate 53; Glucose Random 96 mg/dL (60-115); Potassium 4.6 mmol/L (3.3-5.1); Sodium 142 mmol/L (135-145)
== END 2023-02-08 07:28 | disposition home or self-care (01) ==
LOC: HO.HMGCLDS 07:27
PROVIDERS: PCP Internal Medicine; Visit Provider Internal Medicine Cardiovascular Disease
DX: R00.1 Bradycardia, unspecified (principal)
CPT/HCPCS: 36415; 80048

== ENCOUNTER 2023-08-16 08:44 | Outpatient (AMB) | payer MEDICARE, SELFPAY ==
[2023-08-16 08:48] VITALS: BP 144/82; PULSE 47; O2SAT 98; BMI 28.2
--- NOTE | 2023-08-16 08:48 | AM.OFFVISMDC ---
Intake Vital Signs 08/16/23 08:48 Height 6 ft 3 in Weight 226 lb BMI 28.2 BP 144/82 H Blood Pressure Location Lt brachial Position Sitting Pulse 47 L Pulse Source Pulse Oximeter Pulse Oximetry (%) 98 Oxygen Delivery Method Room Air Intake Visit Reasons: medicare wellness visit Build Technician Required: No Accompanied by: Self / Same As Patient Allergies Seasonal Allergies Allergy (Verified 08/16/23 08:54) Nasal congestion naproxen [From Aleve] Adverse Reaction (Verified 08/16/23 08:54) Rash Medication List - Last Reconciled 08/16/23 by Prabhu Heredia MD ascorbic acid (vitamin C) (Vitamin C) 500 mg PO DAILY bicalutamide 50 mg PO DAILY cholecalciferol (vitamin D3) 25 mcg PO DAILY leuprolide (3 month) (Lupron Depot) 11.25 mg IM [id number] magnesium 15 mg PO DAILY multivitamin 1 tab PO DAILY polysaccharide iron complex (EZFE 200) 200 mg PO DAILY vitamin J40-nmvrl acid 0.5-1 mg 1 tab PO DAILY zinc 50 mg PO QMONTH HPI medicare wellness visit HPI Details metastatic prostate cancer and colon cncer; both stable at present PFSH Medical History Acute appendicitis with appendiceal abscess Bowel cancer Colon cancer Colon polyps History of bradycardia [place] (hard of hearing) MAIK (obstructive sleep apnea) Prostate CA Pulmonary nodule Seasonal allergies Skin cancer of face Surgical History H/O arthroscopic knee surgery History of ankle surgery History of cataract surgery History of exploratory laparotomy History of inguinal hernia repair History of left hemicolectomy Hx of colonoscopy Hx of prostatectomy Hx of tonsillectomy Hx of tooth extraction Family History Father Heart attack Breast CA Sister Heart attack Sister Breast CA Ovarian ca Mother Medical history unknown Social History Household Members: Spouse Housing: House Are you a primary health care assistant to a significant other at home: No Do you presently have visiting nurse or other home services: No Alcohol intake: current Alcohol intake frequency: holidays/special occasions only Alcohol type: beer Comment: resting in bed, eyes closed Patient Tobacco Use Status: Former Tobacco user Quit Date: 40+ yrs ago Tobacco use type: Cigarette e-Cigarette/Vaping Use: Never Used Second Hand Smoke Exposure: No Advance Directives Date on File: 03/02/21 service: Yes Current occupational status: retired Cognitive needs: No Hearing needs: No Vision needs: No Questionnaire Medicare Wellness Checkup [age] What gender do you identify with?: male During the past 4 weeks, how much have you been bothered by emotional problems such as feeling anxious, depressed, irritable, sad or downhearted, and blue?: slightly During the past 4 weeks, has your physical & emotional health limited your social activities with family, friends, neighbors, or groups?: not at all During the past 4 weeks, how much bodily pain have you generally had?: very mild pain During the past 4 weeks, was someone available to help you if you needed & wanted help?: yes, quite a bit During the past 4 weeks, what was the hardest physical activity you could do for at least 2 minutes?: heavy Can you get to places out of walking distance without help? (For eg., can you travel alone on buses, taxis or drive your car?): Yes Can you go shopping for groceries or clothes without someone's help?: Yes Can you prepare your own meals?: Yes Can you do your housework without help?: Yes Because of any health problems, do you need the help of another person with your personal care needs such as eating, bathing, dressing or getting around the house?: No Can you handle your own money without help?: Yes During the past 4 weeks, how would you rate your health in general?: very good During the past 4 weeks how have things been going for you?: pretty well Are you having difficulties driving your car?: no Do you always fasten your seat belt when you are in a car?: yes, usually During past 4 weeks, have you been bothered by the following: never: Falling or dizzy when standing up, Trouble eating well?, Teeth or denture problems? and Problems using the telephone?, sometimes: Tiredness or fatigue? and always: Sexual problems? Have you fallen 2 or more times in the past year?: No Are you afraid of falling?: No Are you a smoker?: no During the past 4 weeks, how many drinks of wine, beer, or other alcoholic beverages did you have?: 2-5 drinks per week Do you exercise for about 20 minutes 3 or more times a week?: yes, most of the time Have you been given information to help with the following?: yes: Hazards in your house that might hurt you? and yes: Keeping track of your medications? How often do you have trouble taking medicines the way you have been told to take them?: I always take medicine as prescribed How confident are you that you can control & manage most of your health problems?: very confident What is your race?: White Mini Mental State Exam (MMSE) Orientation What is the (year) (season) (date) (day) (month)?: year, season, date, day and month Where are we (state) (county) (town or city) (hospital) (floor)?: state, county, town or city, hospital/clinic and floor Registration Name of 3 unrelated objects clearly and slowly, then ask patient to repeat all 3 of them. (1st repeat determines score. Make sure they can repeat all three): object 1, object 2 and object 3 Attention & Calculation (CHOOSE ONE) Ask pt to begin with 100 & count backward by 7. Stop after 5 repeats. If pt cannot ask them to spell the word WORLD backward.: 79 Recall Ask patient to repeat the 3 items from question #3.: object 1, object 2 and object 3 Score Score: 17 Activity of Daily Living Bathing - sponge bath, tub bath or shower: receives no assistance (gets in/out by self, if usual bathing means Dressing - getting clothes from closets & drawers, including inner/outer garments & fasteners.: gets clothes & gets completely dressed without help Toileting - going to the 'toilet room' for urine/bowel elimination & cleaning self/arranging clothes: goes to toilet room, cleans self, arranges clothes without help Transfer: moves in & out of bed and chair without help (may use support object) Continence: controls urination/bowel movements completely by self Feeding: feeds self without help Total Score: 0 Information obtained from: patient Using telephone: independent Traveling: independent Shopping: independent Preparing meals: independent Housework: independent Taking medicine: independent Managing money: independent PHQ-9 Over the last 2 weeks, how often have you been bothered by any of the following problems? 1. Little interest or pleasure in doing things: not at all 2. Feeling down, depressed, or hopeless: several days 3. Trouble falling or staying asleep, or sleeping too much: not at all 4. Feeling tired or having little energy: several days 5. Poor appetite or overeating: several days 6. Feeling bad about yourself - or that you are a failure or have let yourself or your family down: several days 7. Trouble concentrating on things, such as reading the newspaper or watching television: not at all 8. Moving or speaking so slowly that other people could have noticed. Or the opposite - being so fidgety or restless that you have been moving around a lot more than usual: not at all 9. Thoughts that you would be better off or of hurting yourself in some way: not at all Total score: 4 Depression Screening Interpretation: Negative Depression Screening Done: Yes 01011 - PHQ-9 Billing: Yes Source: Developed by Drs. Rickie Mederos, Aysha Conti, Ed Estrada and colleagues, with an educational keesha from [employer]. Review of Systems Const Denies chills, Denies fatigue, Denies headache(s) and Denies weight loss Eyes Denies change in vision, Denies diplopia and Denies eye pain ENT Reports Normal hearing present, Denies vertigo, Denies dizziness, Denies headache(s) and Denies nasal discharge Card Denies chest pain, Denies rapid heart rate and Denies dyspnea on exertion Resp Denies chest congestion, Denies cough, Denies pain with cough and Denies dyspnea on exertion GI Denies abdominal pain, Denies hematochezia and Denies change in bowel habits Musc Denies myalgias, Denies arthralgias and Denies joint swelling Skin/Breast Denies lesions and Denies unusual bruising Neuro Reports Normal hearing present, Denies vertigo, Denies dizziness, Denies headache(s) and Denies focal weakness Endo Denies fatigue Physical Exam Vital Signs: Last Vital Signs Pulse 47 L 08/16/23 08:48 BP 144/82 H 08/16/23 08:48 Pulse Ox 98 08/16/23 08:48 Oxygen Delivery Method Room Air 08/16/23 08:48 BMI result Body Mass Index 28.2 Neuro Cranial nerves: Yes Normal hearing present Assessment & Plan Assessment & Plan (1) Medicare annual wellness visit, subsequent: Code(s): Z00.00 - Encounter for general adult medical examination without abnormal findings Plan: normal whisper and rhomberg tests (2) Colon adenocarcinoma: Code(s): C18.9 - Malignant neoplasm of colon, unspecified Plan: as per onc (3) Metastatic malignant neoplasm to prostate: Code(s): C79.82 - Secondary malignant neoplasm of genital organs Plan: as per onc Quality Reporting (2019) Depression/Bipolar (159/160/161/177) PHQ-9: Total score: 4 Coding Level of Care Code Medicare Subsequent (G0439) Diagnoses Medicare annual wellness visit, subsequent Z00.00 Colon adenocarcinoma C18.9 Metastatic malignant neoplasm to prostate C79.82 CPT Codes Advance Care Planning - Advance Care Planning discussion: On file, no changes ([id number]) Advance Care Planning Advance Care Planning discussion: On file, no changes Forms completed: Health Care Proxy
== END 2023-08-16 09:38 | disposition home or self-care (01) ==
PROVIDERS: Visit Provider Internal Medicine
DX: Z00.00 Encounter for general adult medical examination without abnormal findings (principal); C18.9 Malignant neoplasm of colon, unspecified; C79.82 Secondary malignant neoplasm of genital organs
CPT/HCPCS: 1123F; G0439

== ENCOUNTER 2023-12-26 13:31 | Outpatient (AMB) | payer MEDICARE, SELFPAY ==
--- NOTE | 2023-12-26 13:49 | A.OFFVIS_ITS ---
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 Required: No Allergies Seasonal Allergies Allergy (Verified 10/10/23 07:59) Nasal congestion naproxen [From Aleve] Adverse Reaction (Verified 10/10/23 07:59) Rash Medication List - Last Reconciled 12/26/23 by Bennie Downs MD ascorbic acid (vitamin C) (Vitamin C) 500 mg PO DAILY bicalutamide 50 mg PO DAILY cholecalciferol (vitamin D3) 25 mcg PO DAILY leuprolide (3 month) (Lupron Depot) 11.25 mg IM [id number] magnesium 15 mg PO DAILY multivitamin 1 tab PO DAILY polysaccharide iron complex (EZFE 200) 200 mg PO DAILY vitamin E35-jpima acid 0.5-1 mg 1 tab PO DAILY zinc 50 mg PO QMONTH HPI Comments Details: Jonas comes for follow-up. Denies any clear cardiac symptoms at this point time. Denies any worsening exertional shortness of breath or chest discomfort with exertion. Denies any fatigue or tiredness. Coronary CTA last year showed moderate prox to mid LAD lesion with reduced FFR in the very distal segment. He has no anginal symptoms. His cancer is under remission as per him. Denies any heart failure symptoms. Comes for regular follow-up. Syncopal episodes. PFSH Medical History Pulmonary nodule [place] (hard of hearing) Seasonal allergies MAIK (obstructive sleep apnea) History of bradycardia Colon cancer Acute appendicitis with appendiceal abscess Colon polyps Skin cancer of face Prostate CA Bowel cancer Surgical History History of left hemicolectomy Hx of prostatectomy Hx of colonoscopy History of exploratory laparotomy Hx of tooth extraction History of inguinal hernia repair History of ankle surgery Hx of tonsillectomy H/O arthroscopic knee surgery History of cataract surgery Family History Father Heart attack Breast CA Sister Heart attack Sister Breast CA Ovarian ca Mother Medical history unknown Social History Household Members: Spouse Housing: House Are you a primary career development director to a significant other at home: No Do you presently have visiting nurse or other home services: No Alcohol intake: current Alcohol intake frequency: holidays/special occasions only Alcohol type: beer Comment: resting in bed, eyes closed Patient Tobacco Use Status: Former Tobacco user Tobacco use type: Cigarette e-Cigarette/Vaping Use: Never Used Second Hand Smoke Exposure: No Advance Directives Date on File: 03/02/21 service: Yes Current occupational status: retired Cognitive needs: No Hearing needs: No Vision needs: No Review of Systems Const Denies chills, Denies fatigue, Denies fever(s), Denies frequent falls, Denies weakness, Denies weight gain and Denies weight loss ENT Denies dizziness Card Denies chest pain, Denies leg edema, Denies lightheadedness, Denies palpitations, Denies dyspnea, Denies dyspnea on exertion, Denies orthopnea and Denies other (loss of consciousness) Resp Denies cough, Denies dyspnea and Denies dyspnea on exertion GI Denies hematochezia and Denies change in stool character Musc Denies abnormal gait, Denies muscle weakness, Denies numbness, Denies radiating pain into limb and Denies tingling Neuro Denies Abnormal speech present, Denies abnormal gait, Denies dizziness, Denies frequent falls, Denies numbness, Denies tingling and Denies weakness Endo Denies fatigue and Denies palpitations Physical Exam Vital Signs: Last Vital Signs Pulse 56 12/26/23 13:50 BP 130/72 12/26/23 13:50 BMI result Body Mass Index 28.9 Const General: cooperative, comfortable, no acute distress, alert, awake, Physically active and well groomed Nutritional Appearance: average body habitus Orientation/consciousness: patient oriented x3 Limitations: no limitations Neck Neck: Yes trachea midline, Yes supple and Yes no JVD Resp Effort & Inspection: normal respiratory effort Auscultation: clear to auscultation bilaterally Cardio Jugular venous distension: no JVD Palpation: normal PMI Rate: regular rate Rhythm: regular rhythm Heart sounds: S1 normal heart sound present, S2 normal heart sound present, no click, no gallops, no murmurs and no rubs Neuro General: patient oriented x3 and no focal motor deficits Speech: No Abnormal speech present Extrem General: Yes no clubbing, cyanosis or edema Office Procedures EKG Details: EKG shows sinus bradycardia 56 beats per minute with normal EKG [id number], Complete Assessment & Plan Assessment & Plan (1) CAD (coronary artery disease): Code(s): I25.10 - Atherosclerotic heart disease of [place] coronary artery without angina pectoris Category: Medical Plan: CAD with moderate disease in the proximal LAD and scattered plaques in RCA and circumflex which are nonobstructive. Patient does not have any clear anginal symptoms. Would suggest medical therapy. Advise low-dose aspirin therapy. Also advised statin therapy. He wants to think about it discussed with his but he is agreeable. He said strong family history for premature coronary artery disease. Target goal LDL less than 70 mg/dL. Advised lipid panel in 3 months if he starts taking statin therapy. (2) Bradycardia: Code(s): R00.1 - Bradycardia, unspecified Category: Medical Plan: Sinus bradycardia asymptomatic without any clear symptoms associated with it. He has good chronotropic competence by stress test last year. No indication for pacing therapy. Avoid rate lowering medications. Will follow up in the clinic 1 year's time, sooner p.r.n.. Thank you for allowing me to partake in his care Orders: Orders Lipid Panel 3 Months I25.10 - Atherosclerotic heart disease of [place] coronary artery without angina pectoris Medications: New atorvastatin 20 mg PO DAILY 30 tabs 11RF aspirin (Ecotrin Low Strength) 81 mg PO DAILY 30 tabs 0RF Coding Level of Care Code Est Pt Level 4 (16041) Diagnoses CAD (coronary artery disease) I25.10 Bradycardia R00.1 CPT Codes EKG - CPT: 08944-[id number], Complete ([id number])
[2023-12-26 13:50] VITALS: BP 130/72; PULSE 56; BMI 28.9
== END 2023-12-26 14:20 | disposition home or self-care (01) ==
PROVIDERS: PCP Internal Medicine; Visit Provider Internal Medicine Cardiovascular Disease
DX: I25.10 Atherosclerotic heart disease of native coronary artery without angina pectoris (principal); R00.1 Bradycardia, unspecified
CPT/HCPCS: 93010; 99214

== ENCOUNTER → 2023-12-26 13:31 | Outpatient (BNVA) | payer MEDICARE, SELFPAY | PROVIDERS: PCP Internal Medicine; Visit Provider Internal Medicine Cardiovascular Disease | DX: I25.10 Atherosclerotic heart disease of native coronary artery without angina pectoris (principal); R00.1 Bradycardia, unspecified | CPT/HCPCS: 93005; 99212 ==

== ENCOUNTER 2024-01-24 08:41 | Outpatient (AMB) | payer MEDICARE, SELFPAY ==
--- NOTE | 2024-01-24 08:42 | MHC.OFFWIV ---
Intake Vital Signs 01/24/24 08:48 Height 6 ft 3 in Weight 236 lb BMI 29.5 BP 140/80 H Blood Pressure Location Rt brachial Position Sitting Pulse 61 Pulse Source Pulse Oximeter Temp 98.1 F Temp Source Oral Pulse Oximetry (%) 96 Oxygen Delivery Method Room Air Intake Visit Reasons: EP- positive covid, aches, runny nose, lungs hurt Intake Note: Patient here because he did an at home covid test which came back positive. Patient Tobacco Use Status: Former Tobacco user Allergies Seasonal Allergies Allergy (Verified 01/24/24 08:48) Nasal congestion naproxen [From Aleve] Adverse Reaction (Verified 01/24/24 08:48) Rash Do you need a note to return to daycare/school/sports/work: No HPI HPI Comments History of Present Illness Details 74 y/o male patient who presents to the walk in clinic with c/o URI symptoms. Reports testing positive for Covid at home yesterday. with Positive Covid at home. Pt has H/o Prostate CA meta to the right lungs. Denies fevers, but reports chills. Denies Nausea or vomiting. PFSH Medical History Pulmonary nodule [place] (hard of hearing) Seasonal allergies MAIK (obstructive sleep apnea) History of bradycardia Colon cancer Acute appendicitis with appendiceal abscess Colon polyps Skin cancer of face Prostate CA Bowel cancer Surgical History History of left hemicolectomy Hx of prostatectomy Hx of colonoscopy History of exploratory laparotomy Hx of tooth extraction History of inguinal hernia repair History of ankle surgery Hx of tonsillectomy H/O arthroscopic knee surgery History of cataract surgery Family History Father Heart attack Breast CA Sister Heart attack Sister Breast CA Ovarian ca Mother Medical history unknown Social History Household Members: Spouse Housing: House Are you a primary critical care nurse to a significant other at home: No Do you presently have visiting nurse or other home services: No Alcohol intake: current Alcohol intake frequency: holidays/special occasions only Alcohol type: beer Comment: resting in bed, eyes closed Patient Tobacco Use Status: Former Tobacco user Tobacco use type: Cigarette e-Cigarette/Vaping Use: Never Used Second Hand Smoke Exposure: No Advance Directives Date on File: 03/02/21 service: Yes Current occupational status: retired Cognitive needs: No Hearing needs: No Vision needs: No Review of Systems Const All systems reviewed & are unremarkable except as noted in HPI and below Physical Exam Vital Signs: Last Vital Signs Temp 98.1 F 01/24/24 08:48 Pulse 61 01/24/24 08:48 BP 140/80 H 01/24/24 08:48 Pulse Ox 96 01/24/24 08:48 Oxygen Delivery Method Room Air 01/24/24 08:48 BMI result Body Mass Index 29.5 Const General: cooperative and no acute distress Orientation/consciousness: patient oriented x3 HEENT Head: Yes normocephalic Ears: external ears normal and TM's normal bilaterally General nose exam: Normal external nose present Face and sinus: Yes normal facial exam Mouth: moist mucous membranes Resp Effort & Inspection: normal respiratory effort and able to speak in complete sentences Auscultation: clear to auscultation bilaterally, no crackles, no rales, no rhonchi and no wheezes Cardio Heart sounds: S1 normal heart sound present and S2 normal heart sound present Neuro General: patient oriented x3, gait normal and moves all extremities Psych Speech and movement: Normal speech and movement present Assessment & Plan Assessment & Plan (1) SARS-CoV-2 positive: Code(s): U07.1 - COVID-19 Plan: Rest at home Hydrate with warm fluids Acetaminophen or NSAIDs for pain relief Exercise Isolation prec Coding Level of Care Code Est Pt Level 3 (43175) Diagnoses SARS-CoV-2 positive U07.1 Time Spent (min) 15
[2024-01-24 08:48] VITALS: BP 140/80; PULSE 61; TEMP 36.7; O2SAT 96; BMI 29.5
== END 2024-01-24 09:06 | disposition home or self-care (01) ==
PROVIDERS: PCP Internal Medicine; Visit Provider Nurse Practitioner Family
DX: U07.1 COVID-19 (principal)
CPT/HCPCS: 99213

== ENCOUNTER 2024-02-29 07:51 | Outpatient (REF) | payer MEDICARE, SELFPAY ==
[2024-02-29 10:56] LABS: Cholesterol 124 mg/dL (<200); HDL Cholesterol 42 mg/dL (>40); LDL Cholesterol Calculated 66 mg/dL (<100); Triglycerides 80 mg/dL (<150)
== END 2024-02-29 07:52 | disposition home or self-care (01) ==
LOC: HO.HMGCLDS 07:51
PROVIDERS: PCP Internal Medicine; Visit Provider Internal Medicine Cardiovascular Disease
DX: I25.10 Atherosclerotic heart disease of native coronary artery without angina pectoris (principal)
CPT/HCPCS: 36415; 80061

== ENCOUNTER → 2024-04-13 09:20 | Outpatient (BNV) | payer MEDICARE, SELFPAY | PROVIDERS: PCP Internal Medicine; Visit Provider Internal Medicine | DX: C18.4 Malignant neoplasm of transverse colon (principal); C79.82 Secondary malignant neoplasm of genital organs; Z90.49 Acquired absence of other specified parts of digestive tract; R91.8 Other nonspecific abnormal finding of lung field | CPT/HCPCS: 99214; G2211 ==

== ENCOUNTER 2024-04-13 09:32 | Outpatient (REF) | payer MEDICARE, SELFPAY ==
--- NOTE | ~2024-04-13 | XR_ITS ---
EXAMINATION: XR HIP, RIGHT CLINICAL INFORMATION: Hip pain, history of prostate cancer COMPARISON: None available. TECHNIQUE: Two views of the right hip. FINDINGS: Evaluation of the medial right iliac wing is limited by overlying soft tissue. No fracture, dislocation, or suspicious focal bony abnormality. There is mild to moderate osteoarthritis of the right hip joint. No acute soft tissue abnormalities. There are vascular calcifications. XR/XR hip RT min 2V IMPRESSION: 1. No acute right hip joint or bony abnormalities. 2. Mild to moderate osteoarthrosis of the hip. Discussed with Dr. Howard via secure text 12:01 PM, 04/27/2024 Electronically signed by: Ruben Guidry MD 04/27/2024 12:02 PM [facility] [place]
== END 2024-04-13 09:33 | disposition home or self-care (01) ==
LOC: HO.XRAY 09:32
PROVIDERS: PCP Internal Medicine; Visit Provider Internal Medicine
DX: M25.551 Pain in right hip (principal)
CPT/HCPCS: 73502

== ENCOUNTER → 2024-04-13 09:50 | Outpatient (BNV) | payer MEDICARE, SELFPAY | PROVIDERS: PCP Internal Medicine; Visit Provider Radiology Diagnostic Radiology | DX: M25.551 Pain in right hip (principal) | CPT/HCPCS: 73502 ==

== ENCOUNTER 2024-04-16 13:00 | Outpatient (REF) | payer MEDICARE, SELFPAY ==
--- NOTE | ~2024-04-16 | CT_ITS ---
EXAMINATION: CT CHEST WITH CONTRAST CLINICAL INFORMATION: Follow-up lung nodule noted on PET CT left lower lobe. (Previous biopsy yielding moderately differentiated adenocarcinoma, suspect prostate primary, 03/28/2020). COMPARISON: PET CT 12/22/2021, 11/18/2020, 04/15/2020. Chest CT 03/13/2020. CTPA 05/30/2020. TECHNIQUE: Multidetector volumetric CT imaging of the chest was obtained after the administration of 65 mL of Omnipaque 350 intravenous contrast without immediate adverse reactions. Axial MIP volume rendering provided. Sagittal and coronal reformatted images were obtained. This CT examination was performed using dose optimization techniques as appropriate, variously including the following: *Automated exposure control *Adjustment of mA and/or kV according to patient size (this includes techniques or standardized protocols for targeted exams where dose is matched to indication/reason for exam; i.e. extremities or head) *Use of iterative reconstruction technique DLP: 212 mGy-cm Exam was submitted for interpretation 04/27/2024. FINDINGS: PULMONARY NODULES: - Left upper lobe posterior nodule is slightly larger, measuring 1.0 cm, previously 0.7 cm (series 5, image 61). -Previously seen 6 mm nodule with pleural tag in the superior segment left lower lobe is now only 2 mm, improved. (Series 5, image 103). -Known metastasis in the posterior left lower lobe is increasing in size mildly, currently measuring 1.5 x 1.0 cm, previously 1.0 x 0.9 cm (series 5, image 149). -Immediately abutting within the posterior left lower lobe more inferiorly is a group of new stellate nodules measuring up to 8 mm in diameter (series 5, image 158-162). Findings are consistent with worsening metastases. -A few scattered 2 to 3 mm calcified and noncalcified nodules are unchanged. LUNGS: -Aside from known above nodules, lungs demonstrate no evidence of consolidation or additional abnormal opacity. -There is mild centrilobular and paraseptal emphysema. -Small airways are grossly normal. -Central airways are patent. -Mild linear scarring in the medial right lower lobe abutting spinal osteophytes, and in the left lower lobe posteriorly abutting the enlarging nodules. -There is no pleural effusion or mass. There is no pneumothorax. MEDIASTINUM: -Normal thyroid. Normal caliber aorta with mild atheromatous calcification. -Main pulmonary artery is prominent, likely representing some degree of increased pulmonary pressures. Diameter measures up to 3.6 cm. -There are no abnormal lymph nodes present in the mediastinum or hilum. -The heart size is normal. No pericardial effusion. There are moderate to heavy coronary calcifications. -Small type I hiatus hernia at the GE junction. -Mildly patulous appearing esophagus. AXILLA/CHEST WALL: -No masses or abnormal lymph nodes. UPPER ABDOMEN: -There is partial imaging of a complex large appearing ventral midline supraumbilical hernia in the abdomen. -There is mild diffuse fatty infiltration of the liver. -Upper abdomen otherwise normal. OSSEOUS STRUCTURES: -No suspicious lytic or blastic bone lesions. -Mild degenerative changes of the spine and moderate changes of the sternoclavicular joints. CT/CT chest w IV con IMPRESSION: 1. Enlarging stellate nodules posterior left upper lobe and new and enlarging nodules grouped in the posterior subpleural left lower lobe. Findings are concerning for worsening metastatic metastatic disease. 2. No abnormal lymphadenopathy. 3. Mild paraseptal and centrilobular emphysema. No active lung disease otherwise. 4. Partially imaged complex large ventral midline supraumbilical hernia in the abdomen. 5. Diffuse fatty infiltration of the liver. 6. Additional ancillary findings as discussed in the body of the report. Findings communicated to Dr. Howard via secure text at 11:54 AM, 04/25/2024. Fleischner guidelines were followed. Electronically signed by: Ruben Guidry MD 04/27/2024 11:58 AM [facility]
[2024-04-16] MEDS: iohexoL 350 MG/ML 100 ML INFUS..BTL 65 ML IV (13:45)
== END 2024-04-16 13:01 | disposition home or self-care (01) ==
LOC: HO.CT 13:00
PROVIDERS: PCP Internal Medicine; Visit Provider Internal Medicine
DX: C18.9 Malignant neoplasm of colon, unspecified (principal); C79.82 Secondary malignant neoplasm of genital organs
CPT/HCPCS: 71260; Q9967

== ENCOUNTER → 2024-04-16 13:01 | Outpatient (BNV) | payer MEDICARE, SELFPAY | PROVIDERS: PCP Internal Medicine; Visit Provider Radiology Diagnostic Radiology | DX: R91.1 Solitary pulmonary nodule (principal) | CPT/HCPCS: 71260 ==

== ENCOUNTER 2024-09-10 08:04 | Day surgery (SDC) | payer MEDICARE, SELFPAY ==
[2024-09-06 13:18] VITALS: BMI 28.6
--- NOTE | 2024-09-07 09:06 | HO.ANESPROP2 ---
HPI - Anesthesia Eval Consult details Narrative: 74yo M for Upper Endoscopy and Colonoscopy Follows [facility] [place] [facility] for thong, CAD with moderate disease in the proximal LAD and scattered plaques in RCA and circumflex which are nonobstructive. Stable at 12/2023 office visit with 1 year routine f/u. [facility] Active Problems Active Problems: All Active Problems Encounter for subsequent annual wellness visit (AWV) in Medicare patient (Acute) CAD (coronary artery disease) (Acute) Bradycardia (Acute) Medicare annual wellness visit, subsequent (Acute) Encounter for initial annual wellness visit (AWV) in Medicare patient (Acute) Colon adenocarcinoma (Chronic) Acute appendicitis with appendiceal abscess (Acute) Metastatic malignant neoplasm to prostate (Acute) S/P appendectomy (Acute) Incisional hernia (Acute) Past Medical History Medical History Pulmonary nodule [place] (hard of hearing) Seasonal allergies MAIK (obstructive sleep apnea) History of bradycardia Colon cancer Acute appendicitis with appendiceal abscess Colon polyps Skin cancer of face Prostate CA Bowel cancer Family History Family History Father Heart attack Breast CA Sister Heart attack Sister Breast CA Ovarian ca Mother Medical history unknown Family history of problems with anesthesia: No Surgical History Surgical History History of left hemicolectomy Hx of prostatectomy Hx of colonoscopy History of exploratory laparotomy Hx of tooth extraction History of inguinal hernia repair History of ankle surgery Hx of tonsillectomy H/O arthroscopic knee surgery History of cataract surgery History of Problems with Anesthesia: No Social History Social History Household Members: Spouse Housing: House Are you a primary health care law specialist to a significant other at home: No Do you presently have visiting nurse or other home services: No Alcohol intake: current Alcohol intake frequency: holidays/special occasions only Alcohol type: beer Comment: resting in bed, eyes closed Patient Tobacco Use Status: Former Tobacco user Tobacco use type: Cigarette e-Cigarette/Vaping Use: Never Used Second Hand Smoke Exposure: Yes Advance Directives Date on File: 03/02/21 service: Yes Current occupational status: retired Cognitive needs: No Hearing needs: Yes (Hearing aide) Vision needs: No Meds Allergies Allergy/AdvReac Type Severity Reaction Status Date / Time Seasonal Allergies Allergy Nasal Verified 08/16/24 08:52 congestion naproxen [From Aleve] AdvReac Rash Verified 08/16/24 08:52 Home Medications ?Medication ?Instructions ?Recorded ?Confirmed ?Last Taken ?Type cholecalciferol (vitamin D3) 25 25 mcg PO DAILY 03/18/20 09/06/24 Unknown History mcg (1,000 unit) capsule multivitamin 1 tab PO DAILY 03/18/20 09/06/24 Unknown History vitamin B12 0.5 mg-folic acid 1 mg 1 tab PO DAILY 07/01/20 09/06/24 Unknown History tablet leuprolide (3 month) 11.25 mg (3 11.25 mg IM [id number] 11/12/20 09/06/24 Unknown History month) intramuscular syringe kit (Lupron Depot) ascorbic acid (vitamin C) 500 mg 500 mg PO DAILY 05/06/21 09/06/24 Unknown History tablet (Vitamin C) magnesium 500 mg tablet 15 mg PO DAILY 05/06/21 09/06/24 Unknown History zinc 50 mg tablet 50 mg PO QMONTH 11/18/21 08/17/24 Unknown History polysaccharide iron complex 200 mg 200 mg PO DAILY 10/13/22 09/06/24 Unknown History iron capsule (EZFE 200) Exam Height,Weight and Vital Signs: Height 6 ft 3 in Weight 103.873 kg Pertinent Lab Results Pertinent Lab Results: Laboratory Tests 07/06/24 09:38 WBC 7.0 Hgb 12.7 L Hct 38.2 L Plt Count 217 Sodium 142 Potassium 4.5 Chloride 112 H Carbon Dioxide 25 BUN 27 H Creatinine 1.16 Narrative Narrative: EKG 2023 Details: EKG shows sinus bradycardia 56 beats per minute with normal EKG ECHO 2022 Conclusions: - 1. Normal LV systolic function with grade 1 diastolic dysfunction 2. Trivial aortic regurgitation 3. Normal RV systolic pressure 4. Upper limits of normal ascending aortic size 5. No gross pericardial effusion Assessment and Plan Assessment Anesthesia Assessment: Chart Reviewed Final Anesthetic Review Family History of Problems with Anesthesia: No History of Problems with Anesthesia: No
--- NOTE | 2024-09-10 08:49 | P.CONAN_ITS ---
COUNTS INCLUDE 234 BEDS AT THE [facility] Active Problems Active Problems: All Active Problems Encounter for subsequent annual wellness visit (AWV) in Medicare patient (Acute) CAD (coronary artery disease) (Acute) Bradycardia (Acute) Medicare annual wellness visit, subsequent (Acute) Encounter for initial annual wellness visit (AWV) in Medicare patient (Acute) Colon adenocarcinoma (Chronic) Acute appendicitis with appendiceal abscess (Acute) Metastatic malignant neoplasm to prostate (Acute) S/P appendectomy (Acute) Incisional hernia (Acute) Past Medical History Medical History Pulmonary nodule [place] (hard of hearing) Seasonal allergies MAIK (obstructive sleep apnea) History of bradycardia Colon cancer Acute appendicitis with appendiceal abscess Colon polyps Skin cancer of face Prostate CA Bowel cancer Functional capacity: independent ambulation Family History Family History Father Heart attack Breast CA Sister Heart attack Sister Breast CA Ovarian ca Mother Medical history unknown Family history of problems with anesthesia: No Surgical History Surgical History History of left hemicolectomy Hx of prostatectomy Hx of colonoscopy History of exploratory laparotomy Hx of tooth extraction History of inguinal hernia repair History of ankle surgery Hx of tonsillectomy H/O arthroscopic knee surgery History of cataract surgery History of Problems with Anesthesia: No Social History Social History Household Members: Spouse Housing: House Are you a primary healthcare management to a significant other at home: No Do you presently have visiting nurse or other home services: No Alcohol intake: current Alcohol intake frequency: holidays/special occasions only Alcohol type: beer Comment: resting in bed, eyes closed Patient Tobacco Use Status: Former Tobacco user Tobacco use type: Cigarette e-Cigarette/Vaping Use: Never Used Second Hand Smoke Exposure: Yes Advance Directives: No Advance Directives Information Provided: Yes Advance Directives Date on File: 03/02/21 service: Yes Current occupational status: retired Cognitive needs: No Hearing needs: Yes (Hearing aide) Vision needs: No Meds Allergies Allergy/AdvReac Type Severity Reaction Status Date / Time Seasonal Allergies Allergy Nasal Verified 08/16/24 08:52 congestion naproxen [From Aleve] AdvReac Rash Verified 08/16/24 08:52 Active Medications: Current Medications Lactated Ringer's (Lr) 1,000 mls @ 100 mls/hr IVCONT .Q10H SAUNDRA Sodium Biphosphate/Sodium Phosphate (Sodium Phosphate,Limestone-Dibasic 133 Ml Enema) 133 ml VT ONCE PRN PRN Reason: Poor Colonoscopy Prep Results Home Medications ?Medication ?Instructions ?Recorded ?Confirmed ?Last Taken ?Type cholecalciferol (vitamin D3) 25 25 mcg PO DAILY 03/18/20 09/10/24 Unknown History mcg (1,000 unit) capsule multivitamin 1 tab PO DAILY 03/18/20 09/10/24 Unknown History vitamin B12 0.5 mg-folic acid 1 mg 1 tab PO DAILY 07/01/20 09/10/24 Unknown History tablet leuprolide (3 month) 11.25 mg (3 11.25 mg IM [id number] 11/12/20 09/10/24 Unknown History month) intramuscular syringe kit (Lupron Depot) ascorbic acid (vitamin C) 500 mg 500 mg PO DAILY 05/06/21 09/10/24 Unknown History tablet (Vitamin C) magnesium 500 mg tablet 15 mg PO DAILY 05/06/21 09/10/24 Unknown History zinc 50 mg tablet 50 mg PO QMONTH 11/18/21 09/10/24 Unknown History polysaccharide iron complex 200 mg 200 mg PO DAILY 10/13/22 09/10/24 Unknown History iron capsule (EZFE 200) Exam Height,Weight and Vital Signs: Height 6 ft 3 in Weight 103.873 kg Airway Mallampati Class: II TM Dist: >3cm Neck ROM: Full Heart: RRR Lungs: CTA Assessment and Plan Assessment Anesthesia Assessment: Anesthesia Plan Discussed and Chart Reviewed Final Anesthetic Review Family History of Problems with Anesthesia: No History of Problems with Anesthesia: No NPO: Yes ASA Class: II Final Preanesthetic Review: Meds/Allgs Chart Reviewed, Consent Obtained/Reviewed and Anes Risks/Benef Reviewed Patient Risk: Low Procedure Risk: Low Anesthetic Plan Anesthetic Plan: MAC: Disposition: Standard PACU
[2024-09-10 08:56] VITALS: BP 152/67; PULSE 44; RESP 16; TEMP 36.3; O2SAT 100; BMI 27.4
[2024-09-10] MEDS: Lactated Ringers 1,000 ML 100 ML IVCONT (09:30)
[2024-09-10 10:46] VITALS: BP 148/64; PULSE 59; RESP 16; TEMP 36.8; O2SAT 100
--- NOTE | 2024-09-10 10:53 | PM.OP ---
Brief Operative Note Date of Service: 09/10/24 Pre-op diagnosis: Screening, GERD Post-op diagnosis: other (Polyps, Hiatal hernia) Procedure: EGD with biopsies, Colonoscopy to the cecum with hot snare polypectomy x 3 with placement of 2 Resolution clips Surgeon: Rickie Lira MD Anesthesia: MAC Was an Vendor Management Consultant used for this Procedure?: No Estimated blood loss (mL): 2.0 Pathology: other (A. EG Junction at 40cm B. Transverse colon polyps) Condition: stable Disposition: PACU
[2024-09-10 11:01] VITALS: BP 145/66; PULSE 45; RESP 16; O2SAT 100
[2024-09-10 11:16] VITALS: BP 160/74; PULSE 49; RESP 16; TEMP 36.8; O2SAT 100
--- NOTE | 2024-09-10 13:46 | HO.POSTANES ---
Post Anesthesia Evaluation Post Anesthesia Evaluation Date of Service: 09/10/24 Vital Signs: Vital Signs Temp Pulse Resp BP Pulse Ox O2 Del Method 09/10/24 11:16 98.2 F 49 L 16 160/74 H 100 Room Air 09/10/24 11:01 45 L 16 145/66 H 100 Room Air 09/10/24 10:46 98.3 F 59 16 148/64 H 100 Room Air 09/10/24 08:56 97.3 F 44 L 16 152/67 H 100 Room Air Anesthesia: Monitored Mental Status: Awake Pain Control: Satisfactory Nausea/Vomiting: None Hydration: Adequate Anesthesia-Related Issues: No Anes. Related Issues
--- NOTE | 2024-09-10 14:02 | OP_ITS ---
DATE OF SERVICE: 09/10/2024 SURGEON: Rickie Lira MD INDICATIONS: The patient presents for followup of personal history of colon cancer and tubular adenoma of the colon, as well as increasing symptoms of reflux. Full consent has been obtained from him for this, including risks of bleeding and perforation. PREOPERATIVE DIAGNOSIS: POSTOPERATIVE DIAGNOSIS: PROCEDURE PERFORMED: Esophagogastroduodenoscopy with biopsies, and colonoscopy to the cecum with hot snare polypectomy x3 and placement of 2 Resolution clips on one of the polypectomy sites. ESTIMATED BLOOD LOSS: COMPLICATIONS: ANESTHESIA: Monitored anesthesia care. ASSISTANTS: SPECIMENS: PREOPERATIVE DIAGNOSES: Personal history of colon cancer and colon polyps, gastroesophageal reflux. POSTOPERATIVE DIAGNOSES: Personal history of colon cancer and colon polyps, gastroesophageal reflux, diverticulosis, internal hemorrhoids, hiatal hernia, rule out Diaz esophagus. DESCRIPTION OF PROCEDURE: The patient was placed in the left lateral decubitus position. The Olympus video gastroscope was passed in the posterior oropharynx and upper esophagus under direct vision. The scope was passed slowly into the distal esophagus. The gastroesophageal junction appeared at 40 cm from the incisors. There was no sign of any esophagitis, but there was some short, less than 1 cm areas of possible Diaz mucosa. There were no lesions nor ulceration. There was a small to moderate-sized hiatal hernia. The scope was advanced to pylorus and the duodenum was cannulated to the descending portion. The duodenum including the bulb appeared normal without mass or ulceration. The scope was withdrawn back to the stomach. The gastric antrum and body appeared normal with good peristalsis. The scope was retroflexed visualizing the proximal stomach carefully which appeared normal, without any sign of mass or ulceration. The scope was straightened and withdrawn back into the esophagus. Biopsies were obtained at the EG junction at 40 cm. Proximal to this, the esophageal mucosa appeared normal. Scope was withdrawn from the patient. He was turned around for colonoscopy. The digital rectal exam revealed no abnormalities. The Olympus video pediatric colonoscope was entered into the rectum and advanced to the cecum with the assistance of abdominal wall pressure. Advancement was somewhat difficult. Once in the cecum, I did identify normal-appearing cecal pouch with appendiceal orifice and a normal-appearing ileocecal valve. There was transillumination of light deep in the right lower quadrant. The scope was then slowly withdrawn assessing all mucosal surfaces carefully. For the most part, preparation was very good, but did require some suctioning and irrigation. In the area of what appeared to be the proximal transverse colon with 3 flat, but raised polyps ranging in size between 6 and 12 mm. These were all removed by hot snare polypectomy with pieces recovered by suction. The site of the larger polypectomy had some minimal oozing which was controlled with 2 Resolution clips with good deployment and good hemostasis. I did not visualize any other polyps, colitis, nor angiodysplasia. The anastomosis appeared normal at approximately 60 cm other than some inflammatory polyps. There was some moderate sigmoid diverticulosis. In the rectum, scope was retroflexed visualizing internal hemorrhoids, but no other pathology. The rectal mucosa appeared normal. The scope was straightened and withdrawn from the patient. He tolerated both procedures well and was returned to recovery area in stable condition. IMPRESSION: 1. Colon polyps. 2. Diverticulosis. 3. Internal hemorrhoids. 4. Normal anastomosis other than some inflammatory polyps. 5. Hiatal hernia, rule out Diaz esophagus. PLAN: The results of biopsies will be checked. Given his history and today's findings, I would recommend a repeat colonoscopy in 2 years. We will take his clinical condition into account at that time including his prostate cancer. In regard to his reflux, he reports that has improved and has remained asymptomatic since a short course of omeprazole after I saw him in the office. I did advise him to use omeprazole as needed. He was advised not to use any aspirin nor NSAIDs for 1 week. He would see me otherwise on a p.r.n. basis. This has been discussed with his . MD CHAPITO Carney/MORTEZA / [phone]
== END 2024-09-10 11:43 | disposition home or self-care (01) ==
PROVIDERS: PCP Internal Medicine; Visit Provider Internal Medicine
PROC: (CPT 45385; principal; 2024-09-10 09:20)
DX: Z12.11 Encounter for screening for malignant neoplasm of colon (principal); Z85.038 Personal history of other malignant neoplasm of large intestine; Z86.0101 Personal history of adenomatous and serrated colon polyps; D12.3 Benign neoplasm of transverse colon; K57.30 Diverticulosis of large intestine without perforation or abscess without bleeding; K64.8 Other hemorrhoids; K51.40 Inflammatory polyps of colon without complications; Z98.0 Intestinal bypass and anastomosis status; Z90.49 Acquired absence of other specified parts of digestive tract; K21.9 Gastro-esophageal reflux disease without esophagitis; K44.9 Diaphragmatic hernia without obstruction or gangrene; R14.2 Eructation; C61 Malignant neoplasm of prostate; C78.00 Secondary malignant neoplasm of unspecified lung; J43.9 Emphysema, unspecified; G47.33 Obstructive sleep apnea (adult) (pediatric); R00.1 Bradycardia, unspecified; Z79.82 Long term (current) use of aspirin; Z79.52 Long term (current) use of systemic steroids; Z79.899 Other long term (current) drug therapy; Z98.890 Other specified postprocedural states; Z87.891 Personal history of nicotine dependence
CPT/HCPCS: 45385; 43239; 88305; 88313; 88342; J2003; J2704

== ENCOUNTER 2024-11-29 08:14 | Outpatient (REF) | payer MEDICARE, SELFPAY ==
--- NOTE | ~2024-11-29 | CT_ITS ---
CLINICAL HISTORY: Follow-up lung nodule noted on PET CT left lower lobe. CT chest with contrast Comparison: CT/REG/OT/AR/SR - CT CHEST W IV CON - 04/16/24 13:22 EST Findings: The heart is normal size. Calcification of the coronary vasculature. The visualized thyroid and mediastinum are unremarkable. No evidence of pneumonia or edema. Decreased, 6 mm nodule within the left upper lobe posteriorly ( image 44). Decreased number and size of previously seen posterior left lower lobe nodules, largest remaining of which measures 8 mm (image 108). No new pulmonary nodules are present. The upper abdomen is unremarkable. The bones are intact. IMPRESSION: 1. Resolving left lung nodules. 2. Coronary artery disease. This document has been electronically signed by: Supriya Angelo MD on 11/30/2024 17:08:54
--- OUTSIDE RECORDS SUMMARY | 2024-11-29 08:26 | XMS_ITS | Patient Health Record ---
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 Name Role Phone Prabhu Heredia MD Primary Care Provider Rickie Santiago [phone] Allergies Allergen (clinical drug ingredient) Drug/Non Drug Allergy documented on EMR Reaction Allergy Type Onset Date Status Aleve Unknown Drug Allergy Active Results Component Value Reference Range Notes Pathology (Not yet reviewed by provider) Interpretation: Performing Lab:[facility], [address] [place] [id number] Notes/Report: Reason For Referral No Information Medications Medication SIG (Take, Route, Frequency, Duration) Notes Start Date End Date Status Vitamin D Active Magnesium Citrate 200 MG as directed Orally Active Bicalutamide 50 MG Orally A ctive predniSONE starting on Active Lupron Depot (1-Month) 3.75 MG as directed Intramuscular Q 3 months Active Abiraterone Acetate starting Active Atorvastatin Calcium 20 MG Oral for 30 Active Aspir-Low Active Omeprazole 20 MG 1 Orally Once a day every morning 30 to 60 minutes before breakfast for 30 day(s) 05/18/2024 Active Immunizations Vaccine Route Administration Date Status Comme nts Influenza Unknown 03/19/2020 Administered Influenza Unknown 09/13/2019 Refused Influenza Unknown 02/04/2022 Refused Social History Tobacco Use: Social History Observation Description Date Details (start date - stop date) Former Smoker NA - NA Tobacco Use/Smoking Question Answer Notes Patient is a former smoker How long has it been since you last smoked? > 10 years Section Notes: Nonsmoker; no sig alcohol Nonsmoker; no sig alcohol Nonsmoker; no sig alcohol Nonsmoker; no sig alcohol Nonsmoker over 40 years ; no sig alcohol Problems Problem Type SNOMED Code ICD Code Onset Dates Problem Status W/U Status Risk Notes Problem 975541106 Encounter for screening for malignant neoplasm of colon (Z12.11) Active confirmed Problem 205400680 History of adenomatous polyp of colon (Z86.010) Active confirmed Problem 517842095465144 Preprocedural examination (Z01.818) Active confirmed Problem 872743568686906 Aspirin long-ter m use (Z79.82) Active confirmed Problem 745120227 History of colon cancer (Z85.038) Active confirmed Problem Belching (19525831) Belching (R14.2) Active con firmed Problem Diverticulosis of sigmoid colon (092364445) Diverticulosis of sigmoid colon (K57.30) Active confirmed Problem 532110910 Colonic mass (K63.89) Active confirmed Problem Gastroesophageal reflux disease (disorder) (074159343) Chronic GERD (K21.9) Active confirmed Vital Signs Blood pressure diastolic 00 mm Hg 05/18/2024 Height 74 in 05/18/2024 Blood pressure systolic 00 mm Hg 05/18/2024 Weight 245 lbs 05/18/2024 BMI 31.45 kg/m2 05/18/2024 Encounters Encounter Location Date Provider Diagnosis [facility] [address] [address] [place], [place] [id number] 09/10/2024 Rickie Lira Colon cancer screening Z12.11 ; History of colon cancer Z85.038 ; Personal history of colonic polyps Z86.0100 ; Colon polyps K63.5 ; Gastro-esophageal reflux disease without esophagitis K21.9 and Hiatal hernia K44.9 [facility] [address] [place] [phone] 05/18/2024 Rickie Lira Chronic GERD K21.9 ; Belching R14.2 ; History of adenomatous polyp of colon Z86.010 ; Encounter for screening for malignant neoplasm of colon Z12.11 ; History of colon cancer Z85.038 and Aspirin long-term use Z79.82 [facility] [address] [place] [phone] 05/21/2024 Rickie Lira Chronic GERD K21.9 Assessments Encounter Date Diagnosis (ICD Code) Assessment Notes Treatment Notes Treatment Clinical Notes Section Notes 09/10/2024 Colon cancer screening (ICD-10 - Z12.11) 09/10/2024 History of colon cancer (ICD-10 - Z85.038) 05/18/2024 Belching (ICD-10 - R14.2) Overall, Mic appears well from a GI standpoint. We did review that his upper GI symptoms seem most consistent with that of some ongoing reflux and possible esophagitis which may very well be related to his significant weight gain over the past couple of years in association with a hiatal hernia. Given his chronic use of aspirin, he may have some component of gastritis as well. Given his ongoing symptoms I did recommend a trial of omeprazole 20 mg daily. I also recommended an upper endoscopy for further evaluation. On the same day as his upper endoscopy, I recommended a followup screening colonoscopy given the history of colon cancer, tubular adenomas of the colon, and his last colonoscopy being over 2 years ago. We did review the rationale for this in regard to colorectal cancer prevention and/or early detection. Full consent was obtained from him for both procedures, including risks of bleeding and perforation. The procedures will be done monitored anesthesia care. He was advised to stop aspirin for one week before the procedure. I did advise Mic that I would communicate with his oncologist, Dr. Howard, to be sure she agrees with having him undergo these GI procedures as he continues to be treated for his prostate cancer. Mic was comfortable with this plan. Thank you again for allowing me to participate in Mic's care. I shall continue to keep you advised of his progress. 05/18/2024 Chronic GERD (ICD-10 - K21.9) Stop aspirin for 1 week before the procedures. Please obtain a clearance from Dr. Howard to make sure she thinks it is OK to proceed with the GI procedures while he is on treatment for the prostate cancer. Overall, Mic appears well from a GI standpoint. We did review that his upper GI symptoms seem most consistent with that of some ongoing reflux and possible esophagitis which may very well be related to his significant weight gain over the past couple of years in association with a hiatal hernia. Given his chronic use of aspirin, he may have some component of gastritis as well. Given his ongoing symptoms I did recommend a trial of omeprazole 20 mg daily. I also recommended an upper endoscopy for further evaluation. On the same day as his upper endoscopy, I recommended a followup screening colonoscopy given the history of colon cancer, tubular adenomas of the colon, and his last colonoscopy being over 2 years ago. We did review the rationale for this in regard to colorectal cancer prevention and/or early detection. Full consent was obtained from him for both procedures, including risks of bleeding and perforation. The procedures will be done monitored anesthesia care. He was advised to stop aspirin for one week before the procedure. I did advise Mic that I would communicate with his oncologist, Dr. Howard, to be sure she agrees with having him undergo these GI procedures as he continues to be treated for his prostate cancer. Mic was comfortable with this plan. Thank you again for allowing me to participate in Mic's care. I shall continue to keep you advised of his progress. 05/21/2024 Chronic GERD (ICD-10 - K21.9) 09/10/2024 Personal history of colonic polyps (ICD-10 - Z86.0100) 05/18/2024 History of adenomatous polyp of colon (ICD-10 - Z86.010) Overall, Mic appears well from a GI standpoint. We did review that his upper GI symptoms seem most consistent with that of some ongoing reflux and possible esophagitis which may very well be related to his significant weight gain over the past couple of years in association with a hiatal hernia. Given his chronic use of aspirin, he may have some component of gastritis as well. Given his ongoing symptoms I did recommend a trial of omeprazole 20 mg daily. I also recommended an upper endoscopy for further evaluation. On the same day as his upper endoscopy, I recommended a followup screening colonoscopy given the history of colon cancer, tubular adenomas of the colon, and his last colonoscopy being over 2 years ago. We did review the rationale for this in regard to colorectal cancer prevention and/or early detection. Full consent was obtained from him for both procedures, including risks of bleeding and perforation. The procedures will be done monitored anesthesia care. He was advised to stop aspirin for one week before the procedure. I did advise Mic that I would communicate with his oncologist, Dr. Howard, to be sure she agrees with having him undergo these GI procedures as he continues to be treated for his prostate cancer. Mic was comfortable with this plan. Thank you again for allowing me to participate in Mic's care. I shall continue to keep you advised of his progress. 09/10/2024 Colon polyps (ICD-10 - K63.5) 05/18/2024 Encounter for screening for malignant neoplasm of colon (ICD-10 - Z12.11) Overall, Mic appears well from a GI standpoint. We did review that his upper GI symptoms seem most consistent with that of some ongoing reflux and possible esophagitis which may very well be related to his significant weight gain over the past couple of years in association with a hiatal hernia. Given his chronic use of aspirin, he may have some component of gastritis as well. Given his ongoing symptoms I did recommend a trial of omeprazole 20 mg daily. I also recommended an upper endoscopy for further evaluation. On the same day as his upper endoscopy, I recommended a followup screening colonoscopy given the history of colon cancer, tubular adenomas of the colon, and his last colonoscopy being over 2 years ago. We did review the rationale for this in regard to colorectal cancer prevention and/or early detection. Full consent was obtained from him for both procedures, including risks of bleeding and perforation. The procedures will be done monitored anesthesia care. He was advised to stop aspirin for one week before the procedure. I did advise Mic that I would communicate with his oncologist, Dr. Howard, to be sure she agrees with having him undergo these GI procedures as he continues to be treated for his prostate cancer. Mic was comfortable with this plan. Thank you again for allowing me to participate in Mic's care. I shall continue to keep you advised of his progress. 09/10/2024 Gastro-esophage al reflux disease without esophagitis (ICD-10 - K21.9) 05/18/2024 History of colon cancer (ICD-10 - Z85.038) Overall, Mic appears well from a GI standpoint. We did review that his upper GI symptoms seem most consistent with that of some ongoing reflux and possible esophagitis which may very well be related to his significant weight gain over the past couple of years in association with a hiatal hernia. Given his chronic use of aspirin, he may have some component of gastritis as well. Given his ongoing symptoms I did recommend a trial of omeprazole 20 mg daily. I also recommended an upper endoscopy for further evaluation. On the same day as his upper endoscopy, I recommended a followup screening colonoscopy given the history of colon cancer, tubular adenomas of the colon, and his last colonoscopy being over 2 years ago. We did review the rationale for this in regard to colorectal cancer prevention and/or early detection. Full consent was obtained from him for both procedures, including risks of bleeding and perforation. The procedures will be done monitored anesthesia care. He was advised to stop aspirin for one week before the procedure. I did advise Mic that I would communicate with his oncologist, Dr. Howard, to be sure she agrees with having him undergo these GI procedures as he continues to be treated for his prostate cancer. Mic was comfortable with this plan. Thank you again for allowing me to participate in Mic's care. I shall continue to keep you advised of his progress. 09/10/2024 Hiatal hernia (ICD-10 - K44.9) 05/18/2024 Aspirin long-term use (ICD-10 - Z79.82) Overall, Mic appears well from a GI standpoint. We did review that his upper GI symptoms seem most consistent with that of some ongoing reflux and possible esophagitis which may very well be related to his significant weight gain over the past couple of years in association with a hiatal hernia. Given his chronic use of aspirin, he may have some component of gastritis as well. Given his ongoing symptoms I did recommend a trial of omeprazole 20 mg daily. I also recommended an upper endoscopy for further evaluation. On the same day as his upper endoscopy, I recommended a followup screening colonoscopy given the history of colon cancer, tubular adenomas of the colon, and his last colonoscopy being over 2 years ago. We did review the rationale for this in regard to colorectal cancer prevention and/or early detection. Full consent was obtained from him for both procedures, including risks of bleeding and perforation. The procedures will be done monitored anesthesia care. He was advised to stop aspirin for one week before the procedure. I did advise Mic that I would communicate with his oncologist, Dr. Howard, to be sure she agrees with having him undergo these GI procedures as he continues to be treated for his prostate cancer. Mic was comfortable with this plan. Thank you again for allowing me to participate in Mic's care. I shall continue to keep you advised of his progress. Plan Of Treatment Pending Test Test Name Order Date Pathology 09/10/2024 Future Test Test Name Order Date COLONOSCOPY 07/23/2014 COLONOSCOPY 09/13/2019 COLONOSCOPY 10/01/2020 COLONOSCOPY 02/04/2022 UPPER GI ENDOSCOPY 05/18/2024 COLONOSCOPY 05/18/2024 Insurance Providers Payer Name Payer Address Payer Phone Subscriber Number Group Number Insured Name Patient Relationship to Insured Coverage Start Date Coverage End Date MEDICARE OF [place] [address] [place] [address] [phone] [id number] MIC CORDON Self - patient is the insured [employer] CLAIMS [address] [place] [address] [phone] [id number] MIC CORDON Self - patient is the insured Medical (General) History Medical History History ICD Code Colonoscopies with tubular a denomas removed in 2005, 2006, 08/2009, and 07/2014--mild diverticulosis and small internal hemorrhoids Denies [place],DM,CVA,Lung disease,renal dise ase Prostate cancer as below Bradycardia Metastatic prostate cancer to lung found in 2019--seeing Dr. Howard Appendicitis in 05/2020--ruptured-see be low Emphysema Colon cancer with colonoscop y in 11/2019 with a lesion in distal transverse colon--adenocarcinoma with surgery as below Negative colonoscopy in 11/2020 F/U colonoscopy in 03/2022 with one tubu lar adenoma removed Surgical History Surgery Date(Month/Year) Knee surgery Cataract surgery Prostatectomy for [id number] . Gallo-2010 Basal cell skin cancers Right inguinal hernia repair-Dr. Christine o 2018 Broken left leg with hardware in 2018 Surgery for colon cancer wit h Dr. Joyner 12/2019--extended right hemicolectomy--Adenocarcinoma, well-differentiated, neg. lymph nodes pT2 N0 Appendicitis in 05/2020--rup tured-laparoscopy with Dr. Joyner, but did not have an appendectomy Incisional hernia surgery 2020
[2024-11-29] MEDS: iohexoL 350 MG/ML 100 ML INFUS..BTL 65 ML IV (08:58)
[2024-11-29 09:23] LABS: Creatinine POC 0.6 mg/dL (0.5-1.4); GFR POC > 60
== END 2024-11-29 08:15 | disposition home or self-care (01) ==
LOC: HO.CT 08:14
PROVIDERS: PCP Internal Medicine; Visit Provider Nurse Practitioner Family
DX: R91.1 Solitary pulmonary nodule (principal); C79.82 Secondary malignant neoplasm of genital organs
CPT/HCPCS: 71260; 82565; Q9967

== ENCOUNTER → 2024-11-29 08:15 | Outpatient (BNV) | payer MEDICARE, SELFPAY | PROVIDERS: PCP Internal Medicine; Visit Provider Radiology Diagnostic Radiology | DX: I25.10 Atherosclerotic heart disease of native coronary artery without angina pectoris (principal); R91.8 Other nonspecific abnormal finding of lung field | CPT/HCPCS: 71260 ==

== ENCOUNTER 2024-12-27 12:43 | Outpatient (AMB) | payer MEDICARE, SELFPAY ==
--- NOTE | 2024-12-27 12:45 | MHC.OFFVIS ---
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 Hanger Supervisor Required: No Allergies Seasonal Allergies Allergy (Verified 09/28/24 09:20) Nasal congestion naproxen (From Aleve) Adverse Reaction (Verified 09/28/24 09:20) Rash Medication List - Last Reconciled 12/27/24 by Bennie Downs MD abiraterone 1,000 mg (4 x 250 mg) PO DAILY ascorbic acid (vitamin C) (Vitamin C) 500 mg PO DAILY cholecalciferol (vitamin D3) 25 mcg PO DAILY leuprolide (3 month) (Lupron Depot) 11.25 mg IM [id number] multivitamin 1 tab PO DAILY polysaccharide iron complex (EZFE 200) 200 mg PO DAILY prednisone 5 mg PO DAILY vitamin Q30-xygee acid 0.5-1 mg 1 tab PO .weekly zinc 50 mg PO QMONTH HPI Comments Details: Jonas comes for follow-up. Overall he has been doing well. Remains active. He is currently off statin therapy as he was having lot of muscle aches. He says since stopping statins his muscle aches have improved. He is also currently not taking aspirin says just forgets to take it. No other complaints. Denies any shortness of breath, orthopnea, PND. No leg edema. No claudication. Denies any prolonged palpitation irregular heartbeat. PFS Medical History Pulmonary nodule [place] (hard of hearing) Seasonal allergies MAIK (obstructive sleep apnea) History of bradycardia Colon cancer Acute appendicitis with appendiceal abscess Colon polyps Skin cancer of face Prostate CA Bowel cancer Surgical History History of left hemicolectomy Hx of prostatectomy Hx of colonoscopy History of exploratory laparotomy Hx of tooth extraction History of inguinal hernia repair History of ankle surgery Hx of tonsillectomy H/O arthroscopic knee surgery History of cataract surgery Family History Father Heart attack Breast CA Sister Heart attack Sister Breast CA Ovarian ca Mother Medical history unknown Social History Household Members: Spouse Housing: House Are you a primary pet care technician to a significant other at home: No Do you presently have visiting nurse or other home services: No Alcohol intake: current Alcohol intake frequency: holidays/special occasions only Alcohol type: beer Patient Tobacco Use Status: Former Tobacco user Tobacco use type: Cigarette e-Cigarette/Vaping Use: Never Used Second Hand Smoke Exposure: Yes Advance Directives Date on File: 03/02/21 service: Yes Current occupational status: retired Cognitive needs: No Hearing needs: Yes (Hearing aide) Vision needs: No Review of Systems Const Denies chills, Denies fatigue, Denies fever(s), Denies frequent falls, Denies weakness, Denies weight gain and Denies weight loss ENT Denies dizziness Card Denies chest pain, Denies leg edema, Denies lightheadedness, Denies palpitations, Denies dyspnea, Denies dyspnea on exertion, Denies orthopnea and Denies other (loss of consciousness) Resp Denies cough, Denies dyspnea and Denies dyspnea on exertion GI Denies hematochezia and Denies change in stool character Musc Denies abnormal gait, Denies muscle weakness, Denies numbness, Denies radiating pain into limb and Denies tingling Neuro Denies Abnormal speech present, Denies abnormal gait, Denies dizziness, Denies frequent falls, Denies numbness, Denies tingling and Denies weakness Endo Denies fatigue and Denies palpitations Physical Exam Vital Signs: Last Vital Signs Pulse 58 12/27/24 12:46 BP 120/76 12/27/24 12:46 BMI result Body Mass Index 27.0 Const General: cooperative, comfortable, no acute distress, alert, awake, Physically active and well groomed Nutritional Appearance: average body habitus Orientation/consciousness: patient oriented x3 Limitations: no limitations Neck Neck: Yes trachea midline, Yes supple and Yes no JVD Resp Effort & Inspection: normal respiratory effort Auscultation: clear to auscultation bilaterally Cardio Jugular venous distension: no JVD Palpation: normal PMI Rate: regular rate Rhythm: regular rhythm Heart sounds: S1 normal heart sound present, S2 normal heart sound present, no click, no gallops, no murmurs and no rubs Neuro General: patient oriented x3 and no focal motor deficits Speech: No Abnormal speech present Extrem General: Yes no clubbing, cyanosis or edema Office Procedures EKG Details: EKG shows normal sinus rhythm normal EKG if he had beats per minute 21059-Uabfamvkrutedbuui, Complete Assessment & Plan Assessment & Plan (1) CAD (coronary artery disease): Code(s): I25.10 - Atherosclerotic heart disease of [place] coronary artery without angina pectoris Category: Medical Plan: CAD with moderate disease in the LAD and mild moderate disease in RCA and circumflex artery without any significant symptoms at this point time. No further provocative testing is needed although medical therapy is needed. Importance of aspirin therapy was discussed. Pathophysiology of atherosclerosis was discussed and needs lipid modification. Advised lipid panel in near future. Also advise and I asked him to think about whether he would prefer PCSK9 therapy and take it. He wants to think about it. This is reasonable. (2) Bradycardia: Code(s): R00.1 - Bradycardia, unspecified Category: Medical Plan: Sinus bradycardia which appears to be physiologic. At this point time no treatment is necessary. There could be some monitor sinoatrial angela dysfunction age-related although no pacing therapy is indicated. Avoid rate lowering medications. Will follow up in the clinic in 1 year's time, sooner p.r.n.. Thank you for allowing me to partake in his care Orders: Orders Lipid Panel Today I25.10 - Atherosclerotic heart disease of [place] coronary artery without angina pectoris Medications: New aspirin (Ecotrin Low Strength) 81 mg PO DAILY 30 tabs 0RF I25.10 - Atherosclerotic heart disease of [place] coronary artery without angina pectoris Coding Level of Care Code Est Pt Level 4 (04176) Complex EM visit Add On G2211 Diagnoses CAD (coronary artery disease) I25.10 Bradycardia R00.1 CPT Codes EKG - CPT: 15537-Zjldgfsacenlevfcu, Complete ([id number])
[2024-12-27 12:46] VITALS: BP 120/76; PULSE 58; BMI 27.0
--- OUTSIDE RECORDS SUMMARY | 2024-12-27 12:59 | XMS_ITS | Patient Health Record ---
Author Organization [facility] Address [address] [place] [address] Care Team Providers Care Recreation Professor Name Role Phone Prabhu Heredia MD Primary Care Provider Rickie Santiago [phone] Allergies Allergen (clinical drug ingredient) Drug/Non Drug Allergy documented on EMR Reaction Allergy Type Onset Date Status Aleve Unknown Drug Allergy Active Results Component Value Reference Range Notes Pathology (Not yet reviewed by provider) Interpretation: Performing Lab:[facility], [address] [place] [phone] Notes/Report: Reason For Referral No Information Medications [...] Problem Status W/U Status Risk Notes Problem 099098809 Encounter for screening for malignant neoplasm of colon (Z12.11) Active confirmed Problem 591450981 History of adenomatous polyp of colon (Z86.010) Active confirmed Problem 546374919718937 Preprocedural examination (Z01.818) Active confirmed Problem 364047568624609 Aspirin long-ter m use (Z79.82) Active confirmed Problem 348655059 History of colon cancer (Z85.038) Active confirmed Problem Belching (54215780) Belching (R14.2) Active confirmed Problem Diverticulosis of sigmoid colon (340194006) Diverticulosis of sigmoid colon (K57.30) Active confirmed Problem 807389823 Colonic mass (K63.89) Active confirmed Problem Chronic GERD (K21.9) Active confirmed Vital Signs Blood pressure diastolic 00 mm Hg 05/18/2024 Height 74 in 05/18/2024 Blood pressure systolic 00 mm Hg 05/18/2024 Weight 245 lbs 05/18/2024 BMI 31.45 kg/m2 05/18/2024 Encounters Encounter Location Date Provider Diagnosis [facility] [address] [place] [id number] 09/10/2024 Rickie Lira Colon cancer screening Z12.11 ; History of colon cancer Z85.038 ; Personal history of colonic polyps Z86.0100 ; Colon polyps K63.5 ; Gastro-esophageal reflux disease without esophagitis K21.9 and Hiatal hernia K44.9 [facility] [address] [place] [phone] 05/18/2024 Rickie Lira Chronic GERD K21.9 ; Belching R14.2 ; History of adenomatous polyp of colon Z86.010 ; Encounter for screening for malignant neoplasm of colon Z12.11 ; History of colon cancer Z85.038 and Aspirin long-term use Z79.82 [facility] [address] [place] [phone] 05/21/2024 Rickie Lira Chronic GERD K21.9 Assessments [...] [place] [address] [place] [address] [id number] MIC CORDON Self - patient is the insured [employer] ATTN CLAIMS [address] [place] [address] [phone] [id number] NERIS MIC Self - patient is the insured Medical (General) History Medical History History ICD Code Colonoscopies with tubular a denomas removed in 2005, 2006, 08/2009, and 07/2014--mild diverticulosis and small internal hemorrhoids Denies CT,DM,CVA,Lung disease,renal dise ase Prostate cancer as below [...] Date(Month/Year) Knee surgery Cataract surgery Prostatectomy for jlkotj-uvminhxcmauo-Bl . Gallo-2010 Basal cell skin cancers Right inguinal hernia repair-Dr. Emmett bell 2018 Broken left leg with hardware in 2018 Surgery for colon cancer wit h Dr. Joyner 12/2019--extended right hemicolectomy--Adenocarcinoma, well-differentiated, neg. lymph nodes pT2 N0 Appendicitis in 05/2020--rup tured-laparoscopy with Dr. Joyner, but did not have an appendectomy Incisional hernia surgery 2020
--- OUTSIDE RECORDS SUMMARY | 2024-12-27 12:59 | XMS_ITS | Clinical Summary ---
Author Organization [facility] Address [address] [place] [address] Phone Care Team Providers Care Roller Operator Name Role Phone Prabhu Heredia MD Primary Care Provider [phone] Deloris Howard MD Unavailable [phone] Allergies Active Allergy Reactions Criticality Noted Date Comments Naproxen Sodium Rash Low 05/12/2020 Medications No known medications Active Problems Problem Noted Date Diagnosed Date Prostate cancer 05/12/2020 Social History Tobacco Use Types Packs/Day Years Used Date Smoking Tobacco: Never Assessed Education Answer Date Recorded Are you interested in more education? Not on ana luisa e 10/01/2022 Are you concerned about learning? Not on file 10/01/2022 No 10/01/2022 No 10/01/2022 Digital Access Answer Date Recorded No 10/30/2022 No 10/30/2022 Reliable internet access at home? Not on file 10/30/2022 Device with a working camera? Not on file Sex and Gender Information Value Date Recorded Sex Assigned at Not on file Legal Sex Male 10:04 PM EDT Gender Identity Not on file Sexual Orientation Not on file Plan of Treatment Health Maintenance Due Date Last Done Comments Adult Td,Tdap Booster 1949 LIPID PANEL 1949 DEPRESSION SCREENING 1961 SMOKING Hx and SMOKELESS TOBACCO SCREENING 1962 HEPATITIS C SCREENING 1967 PNEUMOCOCCAL VACCINES (50+ years) (1 of 2 - PCV) 01/21/1968 ZOSTER VACCINES (1 of 2) 01/21/1968 COLOGUARD 1994 COLONOSCOPY 1994 COLORECTAL CANCER SCREENING 1994 FIT TEST 1994 FOBT 1994 SIGMOIDOSCOPY 1994 VIRTUAL COLONOSCOPY 1994 RSV VACCINE (1 - 1-dose 75+ series) 01/21/2024 COVID-19 VACCINE (3 - 2023-2 5 season) 2024 08/30/2020, 08/02/2020 HEPATITIS A VACCINES Aged Out No long er eligible based on patient's age to complete this topic HIB VACCINES Aged Out No longer eligi ble based on patient's age to complete this topic MENINGOCOCCAL VACCINES (ACWY) Aged Out No longer eligible based on patient's age to complete this topic MENINGOCOCCAL VACCINES (B) Aged Out N o longer eligible based on patient's age to complete this topic Medical Devices Not on file Insurance MEDICARE PPO BLUE REPLACEMENT MEDICARE PPO BLUE REPLACEMENT MEDICARE PPO BLUE REPLACEMENT MEDICARE PPO BLUE REPLACEMENT MEDICARE PPO BLUE REPLACEMENT MEDICARE PPO BLUE REPLACEMENT MEDICARE PPO BLUE REPLACEMENT MEDICARE PPO BLUE REPLAC[place] MED[place] P[place] BLUE REPLACEMENT Care Teams Roller Operator Relationship Specialty Start Date End Date Prabhu Heredia MD [address] [place] [phone] PCP - General Internal Medicine 04/18/20 Deloris Howard MD [address] [place] [id number] [email or web address] Hematology and Oncology 04/18/20 Additional Source Comments The information contained in this document represents components of the legal health record. It is not the complete legal health record.[facility]
== END 2024-12-27 13:12 | disposition home or self-care (01) ==
LOC: HO.HCS 12:44
PROVIDERS: PCP Internal Medicine; Visit Provider Internal Medicine Cardiovascular Disease
DX: I25.10 Atherosclerotic heart disease of native coronary artery without angina pectoris (principal); R00.1 Bradycardia, unspecified
CPT/HCPCS: 93010; 99214; G2211

== ENCOUNTER → 2024-12-27 12:43 | Outpatient (BNVA) | payer MEDICARE, SELFPAY | PROVIDERS: PCP Internal Medicine; Visit Provider Internal Medicine Cardiovascular Disease | DX: I25.10 Atherosclerotic heart disease of native coronary artery without angina pectoris (principal); R00.1 Bradycardia, unspecified; M79.605 Pain in left leg; M79.604 Pain in right leg; Z79.899 Other long term (current) drug therapy | CPT/HCPCS: 93005; 99212 ==

== ENCOUNTER 2024-12-28 08:16 | Outpatient (REF) | payer MEDICARE, SELFPAY ==
--- OUTSIDE RECORDS SUMMARY | 2024-12-28 08:25 | XMS_ITS | Patient Health Record ---
Author Organization [facility] Address [address] [place] [address] Care Team Providers Care Orthopedic Dentist Name Role Phone Prabhu Heredia MD Primary Care Provider Rickie Santiago [phone] Allergies Allergen (clinical drug ingredient) Drug/Non Drug Allergy documented on EMR Reaction Allergy Type Onset Date Status Aleve Unknown Drug Allergy Active Results Component Value Reference Range Notes Pathology (Not yet reviewed by provider) Interpretation: Performing Lab:[facility], [address] [place] [id number] Notes/Report: Reason For Referral No Information Medications [...] Problem Status W/U Status Risk Notes Problem 018375451 Encounter for screening for malignant neoplasm of colon (Z12.11) Active confirmed Problem 019097364 History of adenomatous polyp of colon (Z86.010) Active confirmed Problem 089409877623482 Preprocedural examination (Z01.818) Active confirmed Problem 491832334599084 Aspirin long-ter m use (Z79.82) Active confirmed Problem 039893906 History of colon cancer (Z85.038) Active confirmed Problem Belching (32403946) Belching (R14.2) Active confirmed Problem Diverticulosis of sigmoid colon (039683578) Diverticulosis of sigmoid colon (K57.30) Active confirmed Problem 018735797 Colonic mass (K63.89) Active confirmed Problem Chronic GERD (K21.9) Active confirmed Vital Signs Blood pressure diastolic 00 mm Hg 05/18/2024 Height 74 in 05/18/2024 Blood pressure systolic 00 mm Hg 05/18/2024 Weight 245 lbs 05/18/2024 BMI 31.45 kg/m2 05/18/2024 Encounters Encounter Location Date Provider Diagnosis [facility] [address] [place] [id number] 09/10/2024 Rickie Lira Colon cancer screening Z12.11 ; History of colon cancer Z85.038 ; Personal history of colonic polyps Z86.0100 ; Colon polyps K63.5 ; Gastro-esophageal reflux disease without esophagitis K21.9 and Hiatal hernia K44.9 [facility] [address] [place] [phone] 05/18/2024 Rickie Lira Chronic GERD K21.9 ; Belching R14.2 ; History of adenomatous polyp of colon Z86.010 ; Encounter for screening for malignant neoplasm of colon Z12.11 ; History of colon cancer Z85.038 and Aspirin long-term use Z79.82 [facility] [address] [place] [phone] 05/21/2024 Rickie Lira Chronic GERD K21.9 Assessments [...] [place] [address] [place] [address] [id number] MIC CORDON Self - patient is the insured [employer] ATTN CLAIMS [address] [place] [address] [phone] [id number] NERIS MIC Self - patient is the insured Medical (General) History Medical History History ICD Code Colonoscopies with tubular a denomas removed in 2005, 2006, 08/2009, and 07/2014--mild diverticulosis and small internal hemorrhoids Denies [place],DM,CVA,Lung disease,renal dise ase Prostate cancer as below [...] Date(Month/Year) Knee surgery Cataract surgery Prostatectomy for oasmhp-gfkguoaydmzr-Nm . Gallo-2010 Basal cell skin cancers Right inguinal hernia repair-Dr. Emmett bell 2018 Broken left leg with hardware in 2018 Surgery for colon cancer wit h Dr. Joyner 12/2019--extended right hemicolectomy--Adenocarcinoma, well-differentiated, neg. lymph nodes pT2 N0 Appendicitis in 05/2020--rup tured-laparoscopy with Dr. Joyner, but did not have an appendectomy Incisional hernia surgery 2020
--- OUTSIDE RECORDS SUMMARY | 2024-12-28 08:25 | XMS_ITS | Clinical Summary ---
Author Organization [facility] Address [address] [place] [address] Phone Care Team Providers Care Tibco Developer Name Role Phone Prabhu Heredia MD Primary Care Provider [phone] Deloris Howard MD Unavailable [phone] Allergies Active Allergy Reactions Criticality Noted [...] [place] MED[place]UE REPLACEMENT Care Teams Tibco Developer Relationship Specialty Start Date End Date Prabhu Heredia MD [address] [place] [phone] PCP - General Internal Medicine 04/18/20 Deloris Howard MD [address] [place] [phone] [email or web address] Hematology and Oncology 04/18/20 Additional Source Comments The information contained in this document represents components of the legal health record. It is not the complete legal health record.[facility]
[2024-12-28 10:52] LABS: Cholesterol 159 mg/dL (<200); HDL Cholesterol 41 mg/dL (>40); Triglycerides 123 mg/dL (<150)
== END 2024-12-28 08:17 | disposition home or self-care (01) ==
LOC: HO.HMGCLDS 08:16
PROVIDERS: PCP Internal Medicine; Visit Provider Internal Medicine Cardiovascular Disease
DX: I25.10 Atherosclerotic heart disease of native coronary artery without angina pectoris (principal)
CPT/HCPCS: 36415; 80061

== ENCOUNTER 2025-05-09 06:54 | Outpatient (REF) | payer MEDICARE, SELFPAY ==
--- OUTSIDE RECORDS SUMMARY | 2024-09-10 03:30 | XMS_ITS ---
Author Organization [facility] Address [address] [place] [address] Care Team Providers Care Dentistry Teacher Name Role Phone Prabhu Heredia MD Primary Care Provider Rickie Santiago [phone] REASON FOR VISIT gerd,belching hx of adenomatous polyp ,hx of colon ca Encounters Encounter Location Date Provider Diagnosis [facility] [address] [place] [address] [id number] 09/10/2024 Rickie Lira Colon cancer scree werner Z12.11 ; History of colon cancer Z85.038 ; Personal history of colonic polyps Z86.0100 ; Colon polyps K63.5 ; Gastro-esophageal reflux disease without esophagitis K21.9 and Hiatal hernia K44.9 Assessments Encounter Date Diagnosis (ICD Code) Assessment Notes Treatment Notes Treatment Clinical Notes Section Notes 09/10/2024 Colon cancer screening (ICD-10 - Z12.11) 09/10/2024 History of colon cancer (ICD-10 - Z85.038) 09/10/2024 Personal history of colonic polyps (ICD-10 - Z86.0100) 09/10/2024 Colon polyps (ICD-10 - K63.5) 09/10/2024 Gastro-esophagea l reflux disease without esophagitis (ICD-10 - K21.9) 09/10/2024 Hiatal hernia (ICD-10 - K44.9) Plan Of Treatment No Information Progress Notes * MIC CRODON JDOB: [birth year] (75 yo M)Acc No.[id number]:09/10/2024 EGD and COL/MAC Patient: MIC CAPUTO Provider: Angel Luis Lira MD :1950 A ge:74 Y S ex:Male Date:09/10/2024 Address: [address], [place], [id number] Pcp:Prabhu Heredia MD Subjective: * Chief Complaints: * G erd,belching hx of adenomatous polyp ,hx of colon ca Assessment: * Assessment: 1. C olon cancer screening - Z12.11 (Primary) 2 . H istory of colon cancer - Z85.038 3 . P ersonal history of colonic polyps - Z86.0100 4 .?Colon polyps - K63.5 5 . G jenny-esophageal reflux disease without esophagitis - K21.9 6 . H iatal hernia - K44.9 Plan: * Procedure Codes: 4 5385 LESION REMOVAL [id number] COLONOSCOPY AND BIOPSY, Modifiers: 59 0529F INTRVL 3+YRS PTS CLNSCP DOCD, Modifiers: 1P 0528F RCMND FLW-UP 10 YRS [id number] UPPER GI ENDOSCOPY, BIOPSY Billing Information: * Procedure Codes: 37860 LESION REMOVAL COLONOSCOPY. 73189 COLONOSCOPY AND BIOPSY. Modifiers: 59 0529F INTRVL 3+YRS PTS CLNSCP DOCD. Modifiers: 1P 0528F RCMND FLW-UP 10 YRS DOCD. 60209 UPPER GI ENDOSCOPY, BIOPSY. * The named appointment provid er may or may not be the originator of this progress note, and it is not deemed complete until electronically signed by the appointment provider. Sign off status: Pending * Provider: Angel Luis Lira MD Date: 0 09/10/2024 Generated for Sandor york/Adán/Danielaransmitting on: 1 07/10/2024 06:56 AM EST
--- OUTSIDE RECORDS SUMMARY | 2025-05-09 06:56 | XMS_ITS | Clinical Summary ---
Author Organization [facility] Address [address] [place] [address] Phone Care Team Providers Care Glue Maker Name Role Phone Prabhu Heredia MD Primary Care Provider [phone] Deloris Howard MD Unavailable [phone] Allergies Active Allergy Reactions Criticality Noted [...] 01/21/1968 ZOSTER VACCINES (1 of 2) 01/21/1968 RSV VACCINE (1 - 1-dose 75+ series) 01/21/2024 INFLUENZA VACCINE (#1) 2025 05/16/2020 COVID-19 VACCINE (3 2024-2 6 season) 2025 08/30/2020, 08/02/2020 HEPATITIS A VACCINES Aged Out [...] PPO BLUE REPLACEMENT MEDICARE P[place] [address] [place] [address] MEDICARE PPO BLUE [place] [address] [place] [address] MEDIC[address] [place] [place] [address] [address] [place] [place] [address] MED[address]ARE PPO [place]UE [place] [address] [place] [address] MEDICARE PPO BLUE [place] [address] [address] [place] [address] MEDICARE PPO BLUE REPLACEMENT [place] MEDIC[place] P[place] BLUE REPLACEMENT Care Teams Glue Maker Relationship Specialty Start Date End Date Prabhu Heredia MD [address] [place] [phone] PCP - General Internal Medicine 04/18/20 Deloris Howard MD [address] [place] [id number] [email or web address] Hematology and Oncology 04/18/20 Additional Source Comments The information contained in this document represents components of the legal health record. It is not the complete legal health record.[facility]
--- OUTSIDE RECORDS SUMMARY | 2025-05-09 06:56 | XMS_ITS | Patient Health Record ---
Author Organization [facility] Address [address] [place] [address] Care Team Providers Care Graduate Assistant Name Role Phone Prabhu Heredia MD Primary Care Provider Rickie Santiago [phone] Allergies Allergen (clinical drug ingredient) Drug/Non Drug Allergy documented on EMR Reaction Allergy Type Onset Date Status Aleve Unknown Drug Allergy Active Results Component Value Reference Range Notes Pathology (Not yet reviewed by provider) Interpretation: Performing Lab:[facility], [address] [place] [phone] Notes/Report: Reason For Referral No Information Medications Medication SIG (Take, Route, Frequency, Duration) Notes Start Date End Date Status Vitamin D Active Magnesium Citrate 200 MG Tablet as directed Orally Active Bicalutamide 50 MG Tablet Orally Active predniSONE starting on Active Lupron Depot (1-Month) 3.75 MG Kit as directed Intramuscular Q 3 months Active Abiraterone Acetate starting Active Atorvastatin Calcium 20 MG Tablet Oral; Duration: 30 Active Aspir-Low Active Omeprazole 20 MG Capsule Delayed Release 1 Orally Once a day every morning 30 to 60 minutes before breakfast; Duration: 30 day(s) 05/18/2024 Active Immunizations Vaccine Route Administration Date Status Comme nts Influenza Unknown 09/13/2019 Refused Influenza Unknown 03/19/2020 Administered Influenza Unknown 02/04/2022 Refused Social History Tobacco Use: Social History Observation Description Date Details (start date - stop date) Former Smoker NA - NA Social History Tobacco Use: Social Info Question Answer Notes Tobacco Use/Smoking Patient is a former smoker How long has it been since you last smoked? > 10 years Additional Details Category Social Info Options Details Miscellaneous: Marital status: Occupation: retired Section Notes: Nonsmoker; no sig alcohol Nonsmoker; no sig alcohol Nonsmoker; no sig alcohol Nonsmoker; no sig alcohol Nonsmoker over 40 years ; no sig alcohol Problems Problem Type SNOMED Code ICD Code Onset Dates Problem Status W/U Status Risk Notes Problem Screening for malignant neoplasm of colon (721671890) Encounter for screening for malignant neoplasm of colon (Z12.11) Active confirmed Problem History of adenomatous polyp of colon (548756653) History of adenomatous polyp of colon (Z86.010) Active confirmed Problem Preprocedural examination (061533287894888) Preprocedural examination (Z01.818) Active confirmed Problem Long-term current use of aspirin (372794677751272) Aspirin long-term use (Z79.82) Active confirmed Problem History of malignant neoplasm of colon (334696561) History of colon cancer (Z85.038) Active confirmed Problem Belching (12116343) Belching (R14.2) Active con firmed Problem Diverticulosis of sigmoid colon (459077953) Diverticulosis of sigmoid colon (K57.30) Active confirmed Problem Mass of colon (finding) (093133868) Colonic mass (K63.89) Active confirmed Problem Gastroesophageal reflux disease (disorder) (234936254) Chronic GERD (K21.9) Active confirmed Vital Signs Blood pressure diastolic 00 mm Hg 05/18/2024 Height 74 in 05/18/2024 Blood pressure systolic 00 mm Hg 05/18/2024 Weight 245 lbs 05/18/2024 BMI 31.45 kg/m2 05/18/2024 Encounters Encounter Location Date Provider Diagnosis [facility] Out[facility] [address] [place] [id number] 09/10/2024 Rickie Lira Colon cancer screening Z12.11 ; History of colon cancer Z85.038 ; Personal history of colonic polyps Z86.0100 ; Colon polyps K63.5 ; Gastro-esophageal reflux disease without esophagitis K21.9 and Hiatal hernia K44.9 [facility] [address] [place] [address] 05/18/2024 Rickie Lira Chronic GERD K21.9 ; Belching R14.2 ; History of adenomatous polyp of colon Z86.010 ; Encounter for screening for malignant neoplasm of colon Z12.11 ; History of colon cancer Z85.038 and Aspirin long-term use Z79.82 [facility] [address] [place] [address] 05/21/2024 Rickie Lira Chronic GERD K21.9 Assessments [...] progress. 05/21/2024 Chronic GERD (ICD-10 - K21.9) 05/18/2024 History of adenomatous polyp of colon [...] keep you advised of his progress. 09/10/2024 Personal history of colonic polyps (ICD-10 - Z86.0100) 09/10/2024 Colon polyps (ICD-10 - K63.5) 05/18/2024 [...] [place] [address] [place] [address] [id number] MIC CORDON Self - patient is the insured [employer] ATTN CLAIMS [address] [place] [address] [id number] MIC CORDON Self - patient is the insured Medical (General) History Medical History History ICD Code Colonoscopies with tubular a denomas removed in 2005, 2006, 08/2009, and 07/2014--mild diverticulosis and small internal hemorrhoids Denies [place],DM,CVA,Lung disease,renal dise ase Prostate cancer as below [...] Date(Month/Year) Knee surgery Cataract surgery Prostatectomy for lqxuxh-jcaligwyrwoa-Mu . Gallo-2010 Basal cell skin cancers Right inguinal hernia repair-Dr. Christine o 2018 Broken left leg with hardware in 2018 Surgery for colon cancer wit h Dr. Joyner 12/2019--extended right hemicolectomy--Adenocarcinoma, well-differentiated, neg. lymph nodes pT2 N0 Appendicitis in 05/2020--rup tured-laparoscopy with Dr. Joyner, but did not have an appendectomy Incisional hernia surgery 2020
[2025-05-09 11:03] LABS: Cholesterol 155 mg/dL (<200); HDL Cholesterol 50 mg/dL (>40); Triglycerides 108 mg/dL (<150)
== END 2025-05-09 06:55 | disposition home or self-care (01) ==
LOC: HO.HMGCLDS 06:54
PROVIDERS: PCP Internal Medicine; Visit Provider Internal Medicine Cardiovascular Disease
DX: I25.10 Atherosclerotic heart disease of native coronary artery without angina pectoris (principal)
CPT/HCPCS: 36415; 80061